=== PATIENT | male | born 1950 | race Caucasian/White ===

== ENCOUNTER → 2016-05-10 | Outpatient (CLI) | payer OTHER ==
[~2016-05-10] MED LIST: ASPI81TA28 PO; ATOR-22 PO; HYDR25TA4 PO; IBUP-1428 PO; TNR50 PO
[2016-05-10 17:31] LABS: BASO % 0.6 %; BASO ABS # 0.08 K/uL (0-0.2); COMPLETE YES; EOS % 2.1 %; HEMATOCRIT 51.3 % (42-52); IG% 0.2 %; LYMPH % 35.1 %; LYMPH ABS # 4.47 K/uL (1.2-3.4); MEAN CELL VOLUME 92.3 fL (80-100); MEAN CORPUSCULAR HGB CONC 34.7 g/dl (32-36); MEAN PLATELET VOLUME 13.5 fL (7.4-10.4); MONO % 5.8 %; NEUT % 56.2 %; PLATELET COUNT 180 K/uL (130-400); RED BLOOD COUNT 5.56 M/uL (4.7-6.1); WHITE BLOOD COUNT 12.73 K/uL (4.8-10.8)
[2016-05-10 17:57] LABS: ALT/SGPT 29 U/L (12-78); BLOOD UREA NITROGEN 14 mg/dl (7-18); BUN/CREATININE RATIO 12.9 (10-20); CALCIUM 8.9 mg/dl (8.5-10.1); CARBON DIOXIDE 25 mmol/L (21-32); CHLORIDE 108 mmol/L (98-107); CHOLESTEROL 126 mg/dl (0-200); GLUCOSE 90 mg/dl (70-99); POTASSIUM 4.4 mmol/L (3.5-5.1); SODIUM 142 mmol/L (136-145)
[2016-05-10 18:07] LABS: ALKALINE PHOSPHATASE 87 U/L (45-117); AST/SGOT 20 U/L (15-37); CHOLESTEROL/HDL RATIO 2.5; HDL CHOLESTEROL 50 mg/dl; LDL CHOLESTEROL CALCULATED 66 mg/dl; THYROID STIMULATING HORMONE 0.828 uIu/ml (0.300-4.500); TRIGLYCERIDES 49 mg/dl (0-150); VERY LOW DENSITY LIPOPROT CALC 10 mg/dl
[2016-05-11 06:21] LABS: ESTIMATED AVERAGE GLUCOSE 140 mg/dl; HA1C FLAG Normal (Normal)
== END | disposition home or self-care (01) ==
LOC: C.LABBFT 14:59
PROVIDERS: ATTEND Internal Medicine
DX: D45 Polycythemia vera (principal); E11.9 Type 2 diabetes mellitus without complications; E78.5 Hyperlipidemia, unspecified; I10 Essential (primary) hypertension

== ENCOUNTER → 2016-12-06 | Outpatient (CLI) | payer OTHER ==
[2016-12-06 12:05] LABS: BASO % 0.7 %; BASO ABS # 0.08 K/uL (0-0.2); COMPLETE YES; EOS % 2.5 %; HEMATOCRIT 48.9 % (42-52); IG% 0.3 %; LYMPH % 29.8 %; LYMPH ABS # 3.48 K/uL (1.2-3.4); MEAN CELL VOLUME 91.4 fL (80-100); MEAN CORPUSCULAR HEMOGLOBIN 33.3 pg (25-34); MEAN CORPUSCULAR HGB CONC 36.4 g/dl (32-36); MEAN PLATELET VOLUME 13.8 fL (7.4-10.4); MONO % 6.7 %; PLATELET COUNT 155 K/uL (130-400); RED BLOOD COUNT 5.35 M/uL (4.7-6.1); WHITE BLOOD COUNT 11.68 K/uL (4.8-10.8)
[2016-12-06 12:17] LABS: ALB/GLOB RATIO 0.9 (0.9-2); ALT/SGPT 39 U/L (12-78); AST/SGOT 26 U/L (15-37); BLOOD UREA NITROGEN 13 mg/dl (7-18); BUN/CREATININE RATIO 13.2 (10-20); CALCIUM 8.9 mg/dl (8.5-10.1); CARBON DIOXIDE 24 mmol/L (21-32); CHLORIDE 107 mmol/L (98-107); CHOLESTEROL 104 mg/dl (0-200); CHOLESTEROL/HDL RATIO 2.6; GLUCOSE 126 mg/dl (70-99); HDL CHOLESTEROL 40 mg/dl; LDL CHOLESTEROL CALCULATED 51 mg/dl; POTASSIUM 3.5 mmol/L (3.5-5.1); SODIUM 139 mmol/L (136-145); TRIGLYCERIDES 66 mg/dl (0-150); VERY LOW DENSITY LIPOPROT CALC 13 mg/dl
[2016-12-06 12:18] LABS: ESTIMATED AVERAGE GLUCOSE 154 mg/dl; HA1C FLAG Normal (Normal)
[2016-12-06 12:27] LABS: ALKALINE PHOSPHATASE 87 U/L (45-117); PROSTATE SPECIFIC ANTIGEN 0.491 ng/ml (0.000-4.000); THYROID STIMULATING HORMONE 0.895 uIu/ml (0.300-4.500)
[2016-12-06 12:40] LABS: RATIO 6.1 mcg/mg (0-30.0)
== END | disposition home or self-care (01) ==
LOC: C.LABBFT 09:11
PROVIDERS: ATTEND Internal Medicine
DX: Z12.5 Encounter for screening for malignant neoplasm of prostate (principal); E11.9 Type 2 diabetes mellitus without complications

== ENCOUNTER → 2016-12-26 | Day surgery (SDC) | payer OTHER ==
[2016-11-21 10:29] VITALS: Ht 177.8 cm; Wt 109.1 kg
[~2016-12-26] VITALS: Ht 177.8 cm; Wt 109.1 kg
== END | disposition home or self-care (01) ==
LOC: EDSTATUS 07:00 → C.PAT 13:43
PROVIDERS: ATTEND Ophthalmology
DX: H26.9 Unspecified cataract (principal); Z53.9 Procedure and treatment not carried out, unspecified reason

== ENCOUNTER 2017-06-23 13:50 | Emergency (ER) | payer OTHER ==
[~2017-06-23] VITALS: Ht 177.8 cm; Wt 122.9 kg
[2017-06-23 14:05] VITALS: O2SAT 96; Ht 177.8 cm; Wt 122.9 kg
--- NOTE | 2017-06-23 14:27 | EMERGENCY ROOM VISIT NOTE ---
History First contact with patient: 14:09 Chief Complaint: CHEST PAIN Stated Complaint: CHEST PAIN/ARM NUMBNESS Nursing Triage Summary: Pt reports last week numbness to left side of face, arm and leg, continues. Had chest pain last week that resolved then returned this morning approx 0730. Left sided chest pain into left arm. In the morning has dizziness/lightheadedness. Denies sob or n/v. Denies cardiac hx. History of Present Illness The patient is a 66 year old male who presents to the Emergency Room with complaints of 2 episodes of chest pain. The patient has a past medical history of HTN, HLD and pre-diabetes. He notes that 1 week ago he was sitting on the cough and fell asleep and was suddenly awoken by chest discomfort. The pain was in his left chest. It was "like someone took a bat to my chest", rated the severity of 3/10. The pain did not radiate. It last about 5 seconds then went away on its own. He notes some chronic SOB which he attributes to smoking as well as a chronic lingering cough , but he is not sure how long he has had that. In addition, he notes that since that time he has had some tingling in the left face, left arm and left leg. He does not have weakness, speech problems, swallowing difficulties. He denies gait issues. This morning, he notes the chest discomfort occured again but severity was negligible, given the second episode, he decided to come to the ED for evaluation. Review of Systems A 10 point review of systems was negative unless stated above. Past Medical/Surgical History HTN HLD Pre-diabetes Surgical: - Hx Cholecystectomy Family History No pertinent family history Social History Smoking Status: Current Every Day Smoker (1 carton per week) Smokeless Tobacco Use: Yes Alcohol Use: none Drug Use: none Marital Status: Housing Status: lives with significant other Occupation Status: employed (straight truck driver) Current/Historical Medications Scheduled Aspirin (Aspirin Ec), 81 MG PO QAM Atenolol (Atenolol), 50 MG PO QAM Atorvastatin (Lipitor), 20 MG PO QAM Hydrochlorothiazide (Hctz), 25 MG PO QAM Allergies NKDA Physical Exam Vital Signs Date Time Temp Pulse Resp B/P (MAP) Pulse Ox O2 Delivery O2 Flow Rate FiO2 06/23/17 16:03 57 20 167/85 97 06/23/17 15:51 57 20 167/85 97 Room Air 06/23/17 15:04 42 22 136/86 96 Room Air 06/23/17 14:31 51 171/97 99 Room Air 06/23/17 14:29 52 06/23/17 14:22 169/103 06/23/17 14:22 54 15 169/103 97 Room Air 06/23/17 14:20 48 19 99 Room Air 06/23/17 14:05 96 Room Air 06/23/17 14:05 58 18 182/86 96 Room Air 06/23/17 14:03 182/86 Pain Rating (0-10): 0 Physical Exam Constitutional: Vital signs as above were reviewed. Eyes: Pupils equal, round, and reactive to light. Extraocular muscles are intact. No proptosis. No photophobia. ENT: Mucous membranes are moist. Oropharynx is clear. No sinus tenderness. TMs are clear bilaterally No JVD. Cardiovascular: Heart with a regular rate and rhythm. No pedal edema appreciated. No chest wall tenderness Respiratory: Lungs clear to auscultation bilaterally. No wheezes, rales, or rhonchi appreciated. No accessory muscle use. No retractions. No increased work of breathing. GI: Abdomen soft, nontender, nondistended. Normal active bowel sounds. No abdominal hernias appreciated. No rebound. No guarding. : No CVA tenderness appreciated. Musculoskeletal: No midline cervical or vertebral tenderness. No gross deformities. No bony tenderness. No calf swelling or tenderness. Integumentary: Warm, dry, no rashes appreciated. Neurological: Patient awake, alert, and oriented x 3. Cranial nerves two through 12 grossly intact. Motor 5 out of 5 strength bilateral upper and lower extremities. Lymph: No cervical lymphadenopathy appreciated. Medical Decision & Procedures ER Provider Diagnostic Interpretation: CHEST ONE VIEW PORTABLE HISTORY: 66 years-old Male chest pain acute atypical chest pain COMPARISON: None available TECHNIQUE: Portable AP view of the chest FINDINGS: The cardiomediastinal and hilar silhouettes are within normal limits. There is no pneumothorax, pleural effusion, focal airspace consolidation or overt pulmonary edema. The bones of the chest appear grossly intact. Degenerative changes are noted within the shoulders and spine. IMPRESSION: No acute process. The above report was generated using voice recognition software. It may contain grammatical, syntax or spelling errors. Electronically signed by: Todd Urban M.D. 06/23/2017 2:40 PM Dictated Date/Time: 06/23/2017 2:39 PM Laboratory Results 06/23/17 14:15 Red Blood Count 5.43, Mean Corpuscular Volume 91.3, Mean Corpuscular Hemoglobin 33.0, Mean Corpuscular Hemoglobin Concent 36.1, Mean Platelet Volume 13.0, Neutrophils (%) (Auto) 56.8, Lymphocytes (%) (Auto) 32.7, Monocytes (%) (Auto) 7.2, Eosinophils (%) (Auto) 2.3, Basophils (%) (Auto) 0.7, Neutrophils # (Auto) 6.43, Lymphocytes # (Auto) 3.70, Monocytes # (Auto) 0.82, Eosinophils # (Auto) 0.26, Basophils # (Auto) 0.08 06/23/17 14:15 Test 06/23/17 14:15 White Blood Count 11.32 K/uL (4.8-10.8) Red Blood Count 5.43 M/uL (4.7-6.1) Hemoglobin 17.9 g/dL (14.0-18.0) Hematocrit 49.6 % (42-52) Mean Corpuscular Volume 91.3 fL (80-100) Mean Corpuscular Hemoglobin 33.0 pg (25-34) Mean Corpuscular Hemoglobin Concent 36.1 g/dl (32-36) Platelet Count 151 K/uL (130-400) Mean Platelet Volume 13.0 fL (7.4-10.4) Neutrophils (%) (Auto) 56.8 % Lymphocytes (%) (Auto) 32.7 % Monocytes (%) (Auto) 7.2 % Eosinophils (%) (Auto) 2.3 % Basophils (%) (Auto) 0.7 % Neutrophils # (Auto) 6.43 K/uL (1.4-6.5) Lymphocytes # (Auto) 3.70 K/uL (1.2-3.4) Monocytes # (Auto) 0.82 K/uL (0.11-0.59) Eosinophils # (Auto) 0.26 K/uL (0-0.5) Basophils # (Auto) 0.08 K/uL (0-0.2) RDW Standard Deviation 45.2 fL (36.4-46.3) RDW Coefficient of Variation 13.7 % (11.5-14.5) Immature Granulocyte % (Auto) 0.3 % Immature Granulocyte # (Auto) 0.03 K/uL (0.00-0.02) Anion Gap 7.0 mmol/L (3-11) Est Creatinine Clear Calc Drug Dose 93.1 ml/min Estimated GFR () 86.9 Estimated GFR (Non- 75.0 BUN/Creatinine Ratio 12.3 (10-20) Calcium Level 9.1 mg/dl (8.5-10.1) Troponin I < 0.015 ng/ml (0-0.045) ECG Per My Interpretation Indication: chest pain Rate (beats per minute): 47 Rhythm: normal sinus Change: No acute ST or T wave changes ED Course 14:15 - Patient seen and assessed 14:30 - Labs: CBC, BMP, Troponin, EKG, CXR EKG reviewed: NSR rate [address] or T wave changes 15:45 - Patient feeling well Discussed discharge with PCP follow-up; patient agreeable 16:00 - Patient discharged in stable condition Medical Decision Patient presents with 2 brief episode of chest pain. Differential includes, ACS, Angina, Pneumonia, Pneumothorax, PE, Costochondritis , GERD/Esophagitis. Patients presentation was highly atypical of cardiac chest pain, but given risk factors, work-up was initiated. The EKG was normal, and he had a negative troponin. From this standpoint, ACS was highly unlikely. Other causes was ruled out on CXR. The patient incidentally notes tingling on the entire left side of the body. This is unlikely CVA given that symptoms are ipsilateral between head and arms/ legs. As such, he did not require work-up for CVA. Given negative work-up decision was made to discharge back to the care of his PCP. He was agreeable to this. He has follow-up scheduled tomorrow. He was discharged home in stable conditions. Head Trauma GCS Score: 15 Medication Reconcilliation Current Medication List: was personally reviewed by me Blood Pressure Screening Patient's blood pressure: Normal blood pressure Blood pressure disposition: Did not require urgent referral Impression Primary Impression: Non-cardiac chest pain Departure Information Dispostion Home / Self-Care Condition GOOD Referrals Berna, Jb,M.D. (PCP) Patient Instructions My [facility] Additional Instructions You came to the ED for chest pain. The quality of your pain is not typical for heart attack however. Your heart enzyme was normal on labs. Your EKG (heart tracing was normal). Your CXR was normal. You can be discharged home. Please try taking Tylenol if the pain recurs. Please stay hydrated. If your symptoms fail to improve, acutely worsen, please seek medical attention immediately by either calling your primary care provider or going to your nearest emergency department. Otherwise, please see your primary care provider within 1 week to ensure that your symptoms continue to improve. It was a pleasure to be involved in your care and we wish you all the best.
--- NOTE | 2017-06-23 14:41 | DIAGNOSTIC IMAGING REPORT ---
CHEST ONE VIEW PORTABLE HISTORY: 66 years-old Male chest pain acute atypical chest pain COMPARISON: None available TECHNIQUE: Portable AP view of the chest FINDINGS: The cardiomediastinal and hilar silhouettes are within normal limits. There is no pneumothorax, pleural effusion, focal airspace consolidation or overt pulmonary edema. The bones of the chest appear grossly intact. Degenerative changes are noted within the shoulders and spine. IMPRESSION: No acute process. The above report was generated using voice recognition software. It may contain grammatical, syntax or spelling errors. Electronically signed by: Todd Urban M.D. 06/23/2017 2:40 PM Dictated Date/Time: 06/23/2017 2:39 PM
[2017-06-23 14:45] LABS: MEAN CORPUSCULAR HGB CONC 36.1 g/dl (32-36)
[2017-06-23 14:56] LABS: HEMATOCRIT 49.6 % (42-52); HEMOGLOBIN 17.9 g/dL (14.0-18.0); MEAN CELL VOLUME 91.3 fL (80-100); RED CELL DISTRIBUTION WIDTH CV 13.7 % (11.5-14.5); RED CELL DISTRIBUTION WIDTH SD 45.2 fL (36.4-46.3); WHITE BLOOD COUNT 11.32 K/uL (4.8-10.8)
[2017-06-23 15:13] LABS: BLOOD UREA NITROGEN 13 mg/dl (7-18); CALCIUM 9.1 mg/dl (8.5-10.1); CARBON DIOXIDE 24 mmol/L (21-32); CREATININE 1.04 mg/dl (0.60-1.40); GLUCOSE 125 mg/dl (70-99); POTASSIUM 3.7 mmol/L (3.5-5.1); SODIUM 138 mmol/L (136-145)
[2017-06-23 15:14] LABS: PLATELET COUNT 151 K/uL (130-400)
[2017-06-23 15:18] LABS: BASO % 0.7 %; BASO ABS # 0.08 K/uL (0-0.2); EOS % 2.3 %; EOS ABS # 0.26 K/uL (0-0.5); IG# 0.03 K/uL (0.00-0.02); LYMPH % 32.7 %; MONO % 7.2 %; MONO ABS # 0.82 K/uL (0.11-0.59); NEUT % 56.8 %; NEUT ABS # 6.43 K/uL (1.4-6.5)
--- NOTE | 2017-06-23 15:32 | EMERGENCY ROOM VISIT NOTE ---
ED Visit Note First contact with patient: 14:09 Resident Physician Supervision Note: I was present with Dr. Cabello during the history and exam. I discussed the case with the resident and agree with the findings and plan as documented in the note. Documented By: Leonid Wilhelm
[2017-06-23 16:03] VITALS: BP 167/85; PULSE 57; O2SAT 97
== END 2017-06-23 16:04 | disposition home or self-care (01) ==
LOC: C.EDB 13:53 → C.EDC 16:04
DX: R07.89 Other chest pain (principal); I10 Essential (primary) hypertension; E78.5 Hyperlipidemia, unspecified; R73.03 Prediabetes; F17.210 Nicotine dependence, cigarettes, uncomplicated; Z79.82 Long term (current) use of aspirin; Z79.899 Other long term (current) drug therapy

== ENCOUNTER → 2017-06-24 | Outpatient (CLI) | payer OTHER ==
[~2017-06-24] MED LIST changes: -IBUP-1428 PO
[2017-06-24 12:55] LABS: HEMOGLOBIN A1C 6.9 % (4.5-5.6)
== END | disposition home or self-care (01) ==
LOC: C.LABBFT 09:05
PROVIDERS: ATTEND Physician Assistant Medical
DX: E11.9 Type 2 diabetes mellitus without complications (principal); E78.5 Hyperlipidemia, unspecified

== ENCOUNTER 2019-04-20 09:12 | Observation (INO) ==
[2019-04-20] MEDS ORDERED: MAGNESIUM SULFATE / D5W 1 GM/100 ML BAG IV ONE (09:25)
[2019-04-20] MEDS ORDERED: OPTIRAY 320 125ml IV PRN (09:27)
[2019-04-20] MEDS ORDERED: SODIUM CHLORIDE 0.9% 1000ML 1,000 ML IV SCH (09:30)
[2019-04-20 09:45] LABS: Basophils # (auto) 0.09 K/uL (0-0.2); Basophils % (auto) 0.9 %; Eosinophils # (auto) 0.39 K/uL (0-0.5); Hematocrit (blood only) 44.2 % (42-52); Hemoglobin 15.5 g/dL (14.0-18.0); Immature Granulocytes # (auto) 0.03 K/uL (0.00-0.02); Immature Granulocytes % (auto) 0.3 %; Lymphocytes # (auto) 2.46 K/uL (1.2-3.4); Lymphocytes % (auto) 25.5 %; Mean Corpuscular Hemoglobin 32.6 pg (25-34); Mean Corpuscular Hgb Conc 35.1 g/dL (32-36); Mean Corpuscular Volume 93.1 fL (80-100); Mean Platelet Volume 13.1 fL (7.4-10.4); Monocytes # (auto) 0.78 K/uL (0.11-0.59); Monocytes % (auto) 8.1 %; Neutrophils # (auto) 5.89 K/uL (1.4-6.5); Neutrophils % (auto) 61.2 %; Platelet Count 186 K/uL (130-400); RDW Coefficient of Variation 13.4 % (11.5-14.5); RDW Standard Deviation 45.6 fL (36.4-46.3); Red Blood Count 4.75 M/uL (4.7-6.1); White Blood Count 9.64 K/uL (4.8-10.8)
--- NOTE | 2019-04-20 09:50 | CT Scan Report ---
CT angio head w con CLINICAL HISTORY: stroke TECHNIQUE: CT angiography of the head was performed in a dynamic helical fashion during intravenous a dministration of 120 cc of Optiray 320. MIP imaging was performed. A dose lowering technique was util ized adhering to the principles of ALARA. CT DOSE: 1255.34 mGy.cm COMPARISON STUDY: No previous studies for comparison. FINDINGS: There are no lesion suspicious for aneurysm. There are no major intracranial branch occlusi ons. The dural venous sinuses appear patent. IMPRESSION: Unremarkable CT angiography of the brain. ACT 112: Negative or not required by law. Electronically signed by: Christopher Sears M.D. 04/20/2019 9:49 AM
--- NOTE | 2019-04-20 09:50 | CT Scan Report ---
CT OF THE HEAD WITHOUT CONTRAST CLINICAL HISTORY: Stroke evaluation COMPARISON STUDY: Head CT April 12, 2019. MRI of the brain April 12, 2019. TECHNIQUE: Helical axial images of the head were obtained without IV contrast. Automated exposure con trol was utilized for the study. A dose lowering technique was utilized adhering to the principles o f ALARA. FINDINGS: No acute intracranial hemorrhage, midline shift or mass effect is present. The ventricular system is unremarkable. The basilar cisterns are patent. No extra-axial collections are present. Ther e are no findings to suggest acute dural sinus thrombosis or acute territorial infarct. No significan t calvarial abnormalities are present. Visualized portions of the sinuses and mastoid air cells are c lear. White matter hypodensities are unchanged and suggest small vessel disease. IMPRESSION: No acute intracranial findings. ACT 112: Negative or not required by law. Electronically signed by: Eleuterio Finney M.D. 04/20/2019 9:49 AM
[2019-04-20] MEDS ORDERED: METOPROLOL TARTRATE 1 MG/ML VIAL IV PRN (09:56)
--- NOTE | 2019-04-20 09:59 | XRay Report ---
XR chest 1V portable CLINICAL HISTORY: stroke alert COMPARISON STUDY: Chest radiograph June 24, 2007. FINDINGS: Lung volumes are normal. Lungs are clear. There is no pneumothorax or pleural effusion. Car diac size is normal. Mediastinal contours are normal. There is no evidence for pulmonary edema. Right neck surgical clips are incidentally noted. IMPRESSION: No acute cardiopulmonary findings. ACT 112: Negative or not required by law. Electronically signed by: Eleuterio Finney M.D. 04/20/2019 9:57 AM
[2019-04-20 10:00] LABS: Alanine Aminotransferase 42 U/L (12-78); Albumin Level 3.1 gm/dl (3.4-5.0); Aspartate Aminotransferase 25 U/L (15-37); BUN Creatinine Ratio 12.7 (10-20); Blood Urea Nitrogen 12 mg/dl (7-18); Carbon Dioxide 26 mmol/L (21-32); Chloride 111 mmol/L (98-107); Est GFR (African American) 95.6; Est GFR (Non-African American) 82.5; Glucose 128 mg/dl (70-99); Magnesium 2.1 mg/dl (1.8-2.4); Potassium 4.1 mmol/L (3.5-5.1); Sodium 138 mmol/L (136-145)
--- NOTE | 2019-04-20 10:00 | CT Scan Report ---
NECK CTA HISTORY: Pt c/o facial droop TECHNIQUE: Multiaxial CT images of the neck were performed following the intravenous administration o f contrast to evaluate the major cervical vessels. Maximum intensity projection images were also obta ined. All measurements were calculated based on NASCET criteria. A dose lowering technique was utili zed adhering to the principles of ALARA. COMPARISON STUDY: Neck MRA 11/23/1937 18 and neck CTA 04/12/2019. FINDINGS: There is persistent mediastinal lymphadenopathy. Dominant subcarinal lymph node measures 3. 6 x 1.6 cm. There is also mild right hilar lymphadenopathy. Small amount of soft tissue gas and mild edema in the right sternocleidomastoid muscle and mild edema within the right carotid sheath consiste nt with interval carotid endarterectomy. No significant stenosis or occlusion within the right common or internal carotid artery status post endarterectomy. Small linear filling defect at the carotid bi furcation suggestive of an incomplete intimal flap in the setting of a focal dissection. However, bot h lumens opacify. This could also be due to postoperative change. The aortic arch and proximal great vessels are widely patent. No significant stenosis within the left common carotid artery. Moderate na rrowing at the takeoff of the left vertebral artery. Otherwise, the remaining bilateral vertebral art eries are widely patent. Focal short segment of 60-70% stenosis within the proximal left internal car otid artery, unchanged. IMPRESSION: 1. Interval right-sided carotid endarterectomy with no significant stenosis or occlusion within the r ight carotid arteries. 2. There is a small incomplete focal intimal flap at the right carotid bifurcation suggestive of a fo maxine dissection. However, both lumens opacify. This could also be due to postoperative change. 3. No significant change in the 60-70% focal stenosis within the proximal left internal carotid arter y. 4. Persistent mediastinal and right hilar lymphadenopathy. This raises the possibility of a lymphopro liferative disorder or metastatic disease. ACT 112: Negative or not required by law. Electronically signed by: Diaz Leal M.D. 04/20/2019 9:59 AM
[2019-04-20 10:05] LABS: Albumin Globulin Ratio 0.8 (0.9-2); Alkaline Phosphatase 97 U/L (45-117); Bilirubin,Total 0.4 mg/dl (0.2-1); Creatine Kinase 92 U/L (39-308); Creatine Kinase MB 1.4 ng/ml (0.5-3.6); Total Protein 7.1 gm/dl (6.4-8.2); Troponin I < 0.015 ng/ml (0-0.045)
[2019-04-20] MEDS ORDERED: HydrALAZINE HCL 20 MG/ML VIAL IV STA (10:10)
[2019-04-20 10:26] LABS: Appearance Urine Clear (Clear); Bilirubin Urine Negative (Negative); Blood Urine Negative (Negative); Color Urine Yellow; Glucose Urine UA Negative (Negative); Ketones Urine Negative (Negative); Leukocyte Esterase Urine Negative (Negative); Nitrite Urine Negative (Negative); Protein Urine Negative (Negative); Specific Gravity Urine 1.014 (1.000-1.030); Urobilinogen Urine Negative (Negative); pH Urine 7.5 (4.5-7.5)
[2019-04-20 10:30] LABS: Partial Thromboplastin Time 27.9 Seconds (21.0-31.0); Prothrombin Time 10.3 Seconds (9.0-12.0)
[2019-04-20 11:03] LABS: iSTAT Creatinine 0.9 mg/dl (0.6-1.3); iSTAT Ionized Calcium 1.22 mmol/l (1.12-1.32); iSTAT Potassium 4.1 mEq/L (3.3-5.0)
--- NOTE | 2019-04-20 11:22 | History & Physical Report ---
Date of Service April 20, 2019 Assessment & Plan (1) Transient ischemic attack: Admit to PCU on telemetry for observation. Vital signs every 4 hours. Started stroke pathway without TPA TPA not indicated at this time since no acute infarction present. Patient's initial strokelike symptoms improved and resolved. Monitor electrolytes and replenish Neurology consult TTE pending Continue atorvastatin 40 mg nightly Continue clopidogrel 75 mg daily Monitor blood pressure closely. Consider consulting cardiology for bradycardia if does not resolved after discontinuing atenolol. Hydralazine 10 mg p.o. 4 times daily as needed for elevated blood pressure systolic above 160 and diastolic above 90. Brain MRI pending CTA head and neck no visible acute stroke DVT prophylaxis Lovenox 40 mg subcu every 24 Full code Present on Admission?: Yes (2) Hypertensive urgency: As discussed above, continue telemetry and monitoring blood pressures and symptoms including stroke pathway without TPA. Present on Admission?: Yes (3) Hypertension: Continue home medicine aspirin 81 mg p.o. every morning, Midodrin 2.5 mg p.o. twice daily Monitor blood pressure every 4 hours Use hydralazine 10 mg p.o. as needed for elevated blood pressure systolic above 160 and diastolic above 90. Present on Admission?: Yes (4) Diabetes mellitus type 2, uncontrolled: A1c pending. Patient controls his diabetes with diet. Continue monitoring with Accu-Cheks before meals and at bedtime Present on Admission?: Yes (5) Hyperlipidemia: Lipid panel pending. Continue atorvastatin 40 mg p.o. nightly Present on Admission?: Yes (6) Stenosis of left internal carotid artery: Per CTA of the neck there is no significant change in the 60 to 70% focal stenosis within the proximal left internal carotid artery. Continue medical management with atorvastatin 40 mg p.o. nightly and aspirin 81 mg p.o. daily and clopidogrel 75 mg p.o. every morning. Present on Admission?: Yes (7) Occlusion of right internal carotid artery: Patient is s/p endarterectomy of the right internal carotid artery for symptomatic right ICA stenosis and probably small subcortical non-imaginable stroke, with residual left-sided hypoesthesia. Continue medical management as the above. MRI brain pending Present on Admission?: Yes History of Present Illness Chief Complaint: Hypertensive urgency Primary Care Provider: Jb Coronel MD Patient is a 68 years old male with past medical history of hypertension, diabetes mellitus type 2 uncontrolled, hyperlipidemia, stenosis of the right internal carotid artery s/p endarterectomy, stenosis of the left internal carotid artery who presented to the emergency room with complaint of facial droop and feeling dizzy since this morning. Per patient and his his appearance improved after arrival to the emergency room. Just last week patient was seen at [facility] and had endarterectomy of symptomatic right ICA stenosis with probably small subcortical non-imaginable stroke with right-sided residual hypoesthesia. Patient reports that on the discharge from [facility] he was told to discontinue atenolol 50 mg daily and hydrochlorothiazide 25 mg daily. He was also advised to check his blood pressure and if his blood pressure is high to take just half of atenolol 50 mg as needed. This morning patient took atenolol 25 mg without previously checking a blood pressure and on arrival to the emergency room his heart rate was in the range of 40-50 but blood pressure continued to be high systolic 150- 212 and diastolic 80-110. Patient received hydralazine in the ER 10 mg IV x1 metoprolol 5 mg IV x1 and magnesium 1 g IV x1. Patient denies fever, chills, headache, chest pain, shortness of breath, abdominal pain, frequency, urgency, syncope or near syncope. Facial droop improved and it was not present at the time of the clinical examination. Labs are reviewed: WBC is 9.64, hemoglobin 15.5, hematocrit 44.2, platelets 186, PT 10.3, INR 1, APTT 27.9. Sodium 138, potassium 4.1, chloride 111, anion gap 1, BUN 12, creatinine 0.95, GFR 82.5, magnesium 2.1, glucose 128, AST 25, ALT 42, troponin 0.015, TSH pending, BNP pending, A1c pending. Urine all negative. Decision was made to admit patient to PCU on telemetry for apparently strokelike symptoms, hypertensive urgency, bradycardia and further treatment and management. Allergies Allergy/AdvReac Type Severity Reaction Status Date / Time No Known Allergies Allergy Unverified 04/20/19 10:15 Home Medications Home Medications Medication Instructions Recorded Confirmed Type fluticasone 100 mcg-salmeterol 50 1 puffs INHALATION BID #1 ea 01/24/19 04/20/19 History mcg/dose blistr powdr for inhalation blood sugar diagnostic #300 ea 04/19/19 Rx aspirin 81 mg PO QAM 04/20/19 04/20/19 History atorvastatin 40 mg PO HS 04/20/19 04/20/19 History clopidogrel 75 mg PO QAM 04/20/19 04/20/19 History folic acid 2.5 mg PO QAM 04/20/19 04/20/19 History midodrine 2.5 mg PO BID 04/20/19 04/20/19 History Past Med/Surg History Medical History Diabetes mellitus type 2, uncontrolled (Chronic) Hyperlipidemia (Chronic) Hypertension (Chronic) Family History Father Myocardial infarction Social History Preferred Language: Slovak marital status: Current Living Situation: Spouse current occupational status: employed Feels Safe at Home: Yes Smoking Status: Former smoker Tobacco Type: cigarettes ; Age Started Using Tobacco: 16 ; Cigarettes Per Day: 1PPD ; Hx Alcohol Use: No Hx Substance Use: No Dental Care, Regularly: Yes Physical Activity Frequency: Daily Seatbelt Use: always Sunscreen Use: No Review of Systems Review of Systems: All systems reviewed & are unremarkable except as noted in HPI & below Physical Exam Constitutional: WD/WN, vitals as above well developed and + obese Eyes: PERRL, conjunctivae normal, anicteric sclerae ENMT: external ear and nose normal, oropharynx normal Neck: trachea midline, no thyromegaly Respiratory: normal respiratory effort, lungs clear to auscultation Cardiovascular: Rate/Rhythm: + bradycardic Heart Sounds: normal S1 and normal S2 Vessels: dorsalis pedis pulses present Gastrointestinal (Abdomen): normal bowel sounds, soft, nontender, no hepatosplenomegaly Musculoskeletal: no cyanosis or clubbing, extremities motor strength 5/5 Skin: no rashes, warm and dry Neurologic: patellar DTR's 2+ bilat, sensation intact Psychiatric: A+Ox3, euthymic affect Lymphatic: no cervical or axillary lymphadenopathy Results & Data Vital Signs (Past 12 Hours) Vital Signs Temp Pulse Pulse Resp BP BP Pulse Ox 04/20/19 10:32 48 L 20 151/80 H 97 04/20/19 10:29 52 L 18 180/82 H 97 04/20/19 10:21 45 L 12 172/88 H 97 04/20/19 10:10 42 L 16 169/90 H 95 04/20/19 10:05 42 L 14 212/197 H 95 04/20/19 09:44 52 L 52 L 12 187/85 H 96 04/20/19 09:17 36.6 C 48 L 18 171/107 H 95 Code Status & VTE Plan Code Status Full code VTE Prophylaxis Plan VTE Prophylaxis will be ordered: Yes PG Care Time/CCT Total # of Minutes Spent Total Time Spent with Patient: Total time spent is greater than 50% in cook box filler rdination of care (as documented) at patient's floor/unit and/or counseling patient:
--- NOTE | 2019-04-20 11:23 | Magnetic Resonance Report ---
MRI OF THE BRAIN WITHOUT CONTRAST CLINICAL HISTORY: Left-sided numbness. Evaluate for cerebrovascular accident. COMPARISON STUDY: MRI of the brain April 12, 2019. Head CT and CTA performed earlier today. TECHNIQUE: Utilizing a 1.5 Ginger magnet and dedicated coil, multiplanar, multiecho imaging of the bra in was performed without IV contrast. FINDINGS: There are no foci of restricted diffusion to suggest acute infarct. No acute intracranial h emorrhage, midline shift or mass effect is present. Ventricular system is stable. Basilar cisterns ar e patent. There are no extra axial collections. No intracranial masses are identified on this unenhan shannan exam. Numerous white matter T2 hyperintense foci are similar to MRI April 12, 2019. The appear ance of the brain is unchanged. 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 Calvarial signal is normal. IMPRESSION: 1. No acute intracranial findings. 2. No change in appearance of the brain since exam April 12, 2019. ACT 112: Negative or not required by law. Electronically signed by: Eleuterio Finney M.D. 04/20/2019 11:22 AM
[2019-04-20] MEDS ORDERED: PHARMACIST DISCHARGE MED REC CONSULT PRN (13:03)
[2019-04-20] MEDS ORDERED: ACETAMINOPHEN 325 MG TAB PO PRN (13:03)
[2019-04-20] MEDS ORDERED: MAGNESIUM HYDROXIDE SUSP 30 ML UDC PO PRN (13:03)
[2019-04-20] MEDS ORDERED: POLYETHYLENE (MIRALAX) 17 GM PACK PO PRN (13:03)
[2019-04-20] MEDS ORDERED: ALUMINUM/MAGNESIUM SUSP 30 ML UDC PO PRN (13:03)
[2019-04-20] MEDS ORDERED: HydrALAZINE 10 MG TAB PO PRN (13:03)
[2019-04-20 13:12] LABS: Partial Thromboplastin Time 27.8 Seconds (21.0-31.0); Prothrombin Time 10.3 Seconds (9.0-12.0)
[2019-04-20] MEDS ORDERED: ENOXAPARIN INJ 40 MG/0.4 ML SYR SQ SCH (14:00)
--- NOTE | 2019-04-20 14:04 | Electrocardiogram Report ---
Test Reason : Blood Pressure : / mmHG Vent. Rate : 046 BPM Atrial Rate : 046 BPM P-R Int : 190 ms QRS Dur : 094 ms QT Int : 478 ms P-R-T Axes : 028 058 062 degrees QTc Int : 418 ms Sinus bradycardia Otherwise normal ECG When compared with ECG of 20-APR-2019 09:41, Premature atrial complexes are no longer Present Confirmed by Leonid Yusuf ([id number]) on 04/20/2019 2:04:20 PM Referred By: REFERRED SELF Confirmed By:Leonid Yusuf
[2019-04-20 14:09] LABS: Estimated Average Glucose 148 mg/dl; Hemoglobin A1C 6.8 % (4.5-5.6)
[2019-04-20] MEDS ORDERED: MIDODRINE HCL 2.5 MG TAB PO SCH (15:00)
--- NOTE | 2019-04-20 15:08 | Neurology Consultation ---
Date of Consultation April 20, 2019 Assessment & Plan (1) Hypertensive urgency: (2) Stroke-like symptoms: Ceasar Cooper is a 68 yo man w/ PMH hypertension, hyperlipidemia, diabetes, tobacco abuse, recent TIA and recent right carotid endarterectomy at [facility] on 04/15/2019 who presents to [facility] with transient facial droop and dizziness in the setting of hypertension and bradycardia. # Dizziness: in the setting of significant bradycardia/HTN -Bradycardia can be a normal postoperative finding in CEA patients due to location of the vagus nerve and baroreceptors in the carotid bulb -Continue to monitor and if he is symptomatic or heart rate is less than 40, would consider treating with atropine or glycopyrrolate. If he is unresponsive to these measures, may need to get cardiology involved for external pacing until he recovers. He does report that this is a long-standing issue for him, so would not recommend restarting home atenolol and instead consider alternative BP medication. -Symptomatic hypotension as well as hypertension can also be seen in the immedia te postoperative period for CEA. For hypotension, recommend treating with IV fluid boluses prn but ensure that he maintains his blood pressure cap as below. For hypertensive episodes, would consider a Cleviprex drip for rapid on-off ability. Would not recommend restarting midodrine at this time. - These symptoms usually resolve within 1 week of CEA so anticipate that BP/HR should be normalizing to his new level in the next 1-2 days -Blood pressure CAP 140/90 to prevent hyperperfusion and the risk of having postoperative ischemic or hemorrhagic strokes from reperfusion injury -Low threshold to repeat CT head without contrast if any new neurological symptoms - Discussed with patient the need to monitor BP and HR at home. 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 Thank you for this interesting consult. Please call or text with questions. (3) Stenosis of left internal carotid artery: (4) History of right-sided carotid endarterectomy: History of Present Illness Attending Physician: Hiwot Bauer MD History of Present Illness Ceasar Cooper is a 68 yo man w/ PMH hypertension, hyperlipidemia, diabetes, tobacco abuse, recent TIA and recent right carotid endarterectomy at [facility] [place] on 04/15/2019 who presents to [facility] with transient facial droop and dizziness in the setting of hypertension and bradycardia. He initially presented to [facility] on 04/12/2019 after transient left-sided weakness. At that time MRI brain did not show any acute infarct it was notable just for small vessel ischemic disease and mild generalized atrophy. MRA of the head and neck was performed and concerning for moderate stenosis of the left ICA and occlusion versus high-grade stenosis of the right ICA. A CTA showed that the right ICA was approximately 95% occluded with a positive string sign. He was given aspirin 324 and transferred to [facility] for definitive vascular treatment. Carotid Doppler performed at [facility] showed 70 to 79% stenosis of the right ICA and 60-69% stenosis in the left ICA with plaque in bilateral proximal ICAs noted. Echocardiogram showed EF of 65% with normal LV function and no LVH, mild sclerotic aortic valve without significant stenosis or regurg, no valvular vegetations or intracardiac thrombus. He underwent right CEA on April 15, 2019. He was discharged on aspirin 81 mg daily, Plavix 75 mg daily, atorvastatin 20 mg daily, folic acid and midodrine 2.5 mg twice daily. His home blood pressure medication was held for some reason. Lab work during the hospitalization was notable for A1c 7.1 and LDL 83 with normal homocysteine level, low Plavix response assay activity and normal aspirin function. He represented to [facility] on 04/20/2019 after having onset of facial droop and dizziness. He was noted to have systolics in the 150s to 210s and diastolics in the 80-110s in the emergency department, with heart rate in the 40s to 50s. He was given hydralazine, metoprolol and magnesium for this. Clinical symptoms resolved by the time he was seen by the admitting primary team. Of note, he did report having residual left-sided numbness sensation since he was admitted to [facility] last week, but reported on examination today that this has completely resolved. He denied having any facial droop at presentation. He does note that he has had longstanding bradycardia in the 40-50s without symptoms in the past. He denied any other complaints at this time. Allergies Allergy/AdvReac Type Severity Reaction Status Date / Time No Known Allergies Allergy Unverified 04/20/19 10:15 Home Medications Home Medications Medication Instructions Recorded Confirmed Type fluticasone 100 mcg-salmeterol 50 1 puffs INHALATION BID #1 ea 01/24/19 04/20/19 History mcg/dose blistr powdr for inhalation blood sugar diagnostic #300 ea 04/19/19 Rx aspirin 81 mg PO QAM 04/20/19 04/20/19 History atorvastatin 40 mg PO HS 04/20/19 04/20/19 History clopidogrel 75 mg PO QAM 04/20/19 04/20/19 History folic acid 2.5 mg PO QAM 04/20/19 04/20/19 History midodrine 2.5 mg PO BID 04/20/19 04/20/19 History Patient History Medical History Diabetes mellitus type 2, uncontrolled (Chronic) Hyperlipidemia (Chronic) Hypertension (Chronic) Family History Father Myocardial infarction Social History Preferred Language: Ch[place] marital status: Current Living Situation: Spouse current occupational status: employed Feels Safe at Home: Yes Smoking Status: Former smoker Tobacco Type: cigarettes ; Age Started Using Tobacco: 16 ; Cigarettes Per Day: 1PPD ; Hx Alcohol Use: No Hx Substance Use: No Dental Care, Regularly: Yes Physical Activity Frequency: Daily Seatbelt Use: always Sunscreen Use: No Review of Systems Review of Systems: 14 point review of systems completed and negative except as in HPI. Physical Exam Physical Exam: General Exam: GEN: NAD, sitting down in examination bed. CV: RRR on monitor, no significant edema. PULM: Nonlabored respirations on room air. Neuro Exam: MS: Awake and Alert. Oriented to person, place, and date. Speech fluent and appropriate without dysarthria or paraphasic errors. Language intact including naming, comprehension, repetition. Cognition and memory grossly intact. Attent ion intact. No neglect. CN: Visual lujan full, + blink to threat bilaterally. No extinction to double simultaneous stimuli. Normal fundoscopic exam. PERRLA OU. EOMI without nystagmus. Facial sensation intact to LT. Facial muscles full and symmetric. Hearing intact to finger rub bilaterally. Uvula midline with symmetric palatal elevation. SCMs and shoulder shrug normal. Tongue midline. MOTOR: Normal bulk and tone. No pronator drift. BUE strength 5/5 at deltoids, biceps, triceps, wrist flexors and extensors, and finger flexors bilaterally. BLE strength 5/5 at iliopsoas, hamstrings, quadriceps, tibialis anterior, and gastrocnemius bilaterally. REFLEXES: 1+ at biceps, triceps, brachioradialis, 2+ patella, and trace Achilles bilaterally. Toes mute bilaterally. SENSORY: Intact to LT throughout, no extinction to double simultaneous stimuli. Vibration and temperature intact throughout. COORDINATION: No dysmetria or ataxia on [id number] bilaterally. Normal Ke[place] bilaterally. GAIT: Deferred due to physical status. NIH STROKE SCALE 1A. Level of Consciousness (0-3) = 0 1B. LOC Questions (0-2) = 0 1C. LOC Commands (0-2) = 0 2. Best Horizontal Gaze (0-2) = 0 3. Visual Lujan (0-3) = 0 4. Facial Palsy (0-3) = 0 5. Motor Arm Right (0-4) = 0 Left (0-4) = 0 6. Motor Leg Right (0-4) = 0 Left (0-4) = 0 7. Limb Ataxia (0-2) = 0 8. Sensory (0-2) = 0 9. Best Language (0-3) = 0 10. Dysarthria (0-2) = 0 11. Extinction and Inattention (0-2) = 0 NIHSS TOTAL = 0 Results & Data Vital Signs (Past 12 Hours) Vital Signs Temp Pulse Pulse Resp BP BP Pulse Ox 04/20/19 13:00 36.5 C 61 20 153/81 H 98 04/20/19 11:50 48 L 18 153/79 H 98 04/20/19 10:38 44 L 18 158/88 H 98 04/20/19 10:32 48 L 20 151/80 H 97 04/20/19 10:29 52 L 18 180/82 H 97 04/20/19 10:21 45 L 12 172/88 H 97 04/20/19 10:10 42 L 16 169/90 H 95 04/20/19 10:05 42 L 14 212/197 H 95 04/20/19 09:44 52 L 52 L 12 187/85 H 96 04/20/19 09:17 36.6 C 48 L 18 171/107 H 95 PG Care Time/CCT Total # of Minutes Spent Total Time Spent with Patient: Total time spent is greater than 50% in coordination of care (as documented) at patient's floor/unit and/or counseling patient:
--- NOTE | 2019-04-20 15:11 | Emergency Department Note ---
Entered by Lowell Dean acting as a scribe for Boone Owusu MD History of Present Illness General Chief complaint: Neuro Symptoms/Deficit Stated complaint: NUMBNESS ON L SIDE Time Seen by Provider: 04/20/19 09:22 Source: patient History of Present Illness Provider complaint: Stroke like symptoms Onset (ago): hour(s) (This morning) Location: upper extremity, lower extremity and left Pain Consistency: + constant Quality: + other (Numbness) Relieved By: + none Associated symptoms: + confusion and + weakness The patient is a 68 year old male who presents to the Emergency Room with complaints of constant neurological symptoms that started this morning. The history was given by the patient's due to the patient being at CT scan. The states that the patient was discharged yesterday from [place] 2 days ago where he was hospitalized for right ICA stenosis. Per the patient's discharge papers, the patient had a left sided facial droop at discharge, however the notes she noticed it more today. She adds that the patient started having left sided numbness in his upper and lower extremity this morning. The also noticed the patient was slightly confused this morning and he kept telling her that he "did not feel right". The also mentioned that the patient took his blood pressure at home and it was about 160 systolic. Home Medications Home Medications Medication Instructions Recorded Confirmed Type fluticasone 100 mcg-salmeterol 50 1 puffs INHALATION BID #1 ea 01/24/19 04/20/19 History mcg/dose blistr powdr for inhalation blood sugar diagnostic #300 ea 04/19/19 Rx aspirin 81 mg PO QAM 04/20/19 04/20/19 History atorvastatin 40 mg PO HS 04/20/19 04/20/19 History clopidogrel 75 mg PO QAM 04/20/19 04/20/19 History folic acid 2.5 mg PO QAM 04/20/19 04/20/19 History nicotine [Nicoderm CQ] 1 patch TD DAILY #14 ea 04/21/19 Rx Allergies Allergy/AdvReac Type Severity Reaction Status Date / Time No Known Allergies Allergy Unverified 04/20/19 10:15 Past Med/Surg History Medical History Diabetes mellitus type 2, uncontrolled (Chronic) Hyperlipidemia (Chronic) Hypertension (Chronic) Family History Father Myocardial infarction Social History Preferred Language: Swedish Communication Ability: Effective marital status: Current Living Situation: Spouse current occupational status: employed Feels Safe at Home: Yes Smoking Status: Former smoker Tobacco Type: cigarettes ; Age Started Using Tobacco: 16 ; Cigarettes Per Day: 1PPD ; Hx Alcohol Use: No Hx Substance Use: No Dental Care, Regularly: Yes Physical Activity Frequency: Daily Seatbelt Use: always Sunscreen Use: No Review of Systems See HPI for pertinent positives & negatives. and A total of 10 systems reviewed and were otherwise negative Physical Exam Vital Signs Vital Signs - 24 hr 04/20/19 09:17 04/20/19 09:44 04/20/19 10:05 Temperature 36.6 C Temperature Source Oral Pulse Rate 48 L 52 L Pulse Rate [Right Finger] 52 L 42 L Respiratory Rate 18 12 14 Respiratory Effort / Characteristics Non-Labored Spontaneous Non-Labored Respiratory Depth Normal Normal Respiratory Pattern Regular Blood Pressure 171/107 H Blood Pressure [Right Arm] 187/85 H 212/197 H Blood Pressure Mean 128 Blood Pressure Mean [Right Arm] 119 202 Blood Pressure Position Sitting Pulse Oximetry 95 96 95 Oxygen Delivery Method Room Air Room Air Room Air Sepsis Recent Fever Within 48 Hours No Sepsis New/Unexplained Change in Mental Status No Sepsis Action Taken by Nursing No Action Required 04/20/19 10:10 04/20/19 10:15 04/20/19 10:21 Temperature Temperature Source Pulse Rate Pulse Rate [Right Finger] 42 L 45 L Respiratory Rate 16 12 Respiratory Effort / Characteristics Non-Labored Non-Labored Respiratory Depth Normal Normal Respiratory Pattern Blood Pressure Blood Pressure [Right Arm] 169/90 H 172/88 H Blood Pressure Mean Blood Pressure Mean [Right Arm] 116 116 Blood Pressure Position Pulse Oximetry 95 97 Oxygen Delivery Method Room Air Room Air Room Air Sepsis Recent Fever Within 48 Hours Sepsis New/Unexplained Change in Mental Status Sepsis Action Taken by Nursing 04/20/19 10:29 04/20/19 10:32 04/20/19 10:38 Temperature Temperature Source Pulse Rate Pulse Rate [Right Finger] 52 L 48 L 44 L Respiratory Rate 18 20 18 Respiratory Effort / Characteristics Non-Labored Non-Labored Respiratory Depth Normal Normal Respiratory Pattern Blood Pressure Blood Pressure [Right Arm] 180/82 H 151/80 H 158/88 H Blood Pressure Mean Blood Pressure Mean [Right Arm] 114 103 111 Blood Pressure Position Pulse Oximetry 97 97 98 Oxygen Delivery Method Room Air Room Air Room Air Sepsis Recent Fever Within 48 Hours Sepsis New/Unexplained Change in Mental Status Sepsis Action Taken by Nursing GENERAL: Awake, alert, well-appearing, in no distress HENT: Normocephalic, atraumatic. Oropharynx unremarkable. EYES: Normal conjunctiva. Sclera non-icteric. NECK: Supple. No nuchal rigidity. FROM. No masses. RESPIRATORY: Clear to auscultation. No wheezes. No rales. Normal respiratory effort. CARDIAC: Normal rate. Normal rhythm. No murmurs. No rubs. Extremities warm and well perfused. Pulses equal. No JVD. GI: Soft, non-distended. No tenderness to palpation. No rebound or guarding. No masses. RECTAL: Deferred. MUSCULOSKELETAL: Atraumatic. Chest examination reveals no tenderness. The back is symmetrical on inspection without obvious abnormality. There is no CVA tenderness to palpation. No joint edema. LOWER EXTREMITIES: Calves are equal size bilaterally and non-tender. No edema. No discoloration. NEURO: Normal sensorium. No sensory or motor deficits noted. Course Course 0921: Past medical records reviewed. The patient was evaluated in room A01, and a complete history and physical examination were performed. A stroke alert was called from triage and the patient was brought immediately to CT scan. 0929: I spoke to Dr. Jak Brody about the patient's case. She is going to evaluate the patient via Telestroke. 0955: Dr. Nieves evaluated the patient and suggested getting his blood pressure controlled and having him admitted for an MRI. 1015: I spoke to Dr. Bauer [facility] Hospitalist about the patient's case. She agreed to accept the patient for further evaluation. Consultations Consultation #1: I spoke to Dr. Jak Brody about the patient's case. She is going to evaluate the patient via Telestroke. Time: 09:29 Consultation #2: Dr. Nieves evaluated the patient and suggested getting his b lood pressure controlled and having him admitted for an MRI. Time: 09:55 Consultation #3: I spoke to Dr. Bauer [facility] Hospitalist about the patient's case. She agreed to accept the patient for further evaluation. Time: 10:15 Administered Medications Discontinued Medications Aspirin (Ecotrin Ectab) 81 mg PO [facility] Stop: 05/21/19 08:59 Last Admin: 04/21/19 08:01 Dose: 81 mg Documented by: [id number] Atorvastatin Calcium (Lipitor) 40 mg PO [facility] Stop: 05/20/19 20:59 Last Admin: 04/20/19 20:40 Dose: 40 mg Documented by: [id number] Clopidogrel Bisulfate (Plavix) 75 mg PO [facility] Stop: 05/21/19 08:59 Last Admin: 04/21/19 08:02 Dose: 75 mg Documented by: [id number] Enoxaparin Sodium (Lovenox) 40 mg SQ Q24H [facility] Stop: 05/20/19 13:59 Last Admin: 04/20/19 13:59 Dose: 40 mg Documented by: [id number] Folic Acid (Folvite) 2.5 mg PO [facility] Stop: 05/21/19 08:59 Last Admin: 04/21/19 08:01 Dose: 2.5 mg Documented by: [id number] Hydralazine HCl (Hydralazine Hcl) 10 mg IV NOW [facility] Stop: 04/20/19 10:11 Last Admin: 04/20/19 10:12 Dose: 10 mg Documented by: [id number] Sodium Chloride (Nss 1000ml) 1,000 mls @ 50 mls/hr IV .Q20H [facility] Stop: 05/20/19 09:29 Last Infusion: 04/20/19 12:11 Dose: 0 mls/hr Documented by: [id number] Admin: 04/20/19 10:12 Dose: 50 mls/hr Documented by: [id number] Magnesium Sulfate/Dextrose (Magnesium Sulfate / D5w) 1 gm in 100 mls @ 100 mls/hr IV ONE ONE Stop: 04/20/19 10:24 Last Infusion: 04/20/19 12:11 Dose: 0 mls/hr Documented by: [id number] Admin: 04/20/19 10:12 Dose: 100 mls/hr Documented by: [id number] Ioversol (Optiray 320 125ml) 120 ml IV ONCE PRN PRN Reason: Interaction Checking Stop: 04/24/19 09:26 Last Admin: 04/20/19 09:28 Dose: 120 ml Documented by: [id number] Menthol (Nice) 1 adele BUCCAL NOW STA Stop: 04/21/19 05:42 Last Admin: 04/21/19 06:03 Dose: 1 adele Documented by: [id number] Midodrine (Proamatine) 2.5 mg PO BID@0900,1500 MELI Stop: 05/20/19 14:59 Last Admin: 04/20/19 16:22 Dose: Not Given Documented by: [id number] Nicotine (Nicoderm Cq) 21 mg TD QAM MELI Stop: 05/21/19 12:59 Last Admin: 04/21/19 13:00 Dose: 21 mg Documented by: [id number] Perflutren Lipid Microsphere (Definity) 2 ml IV ONCE ONE Stop: 04/21/19 11:40 Last Admin: 04/21/19 11:40 Dose: 2 ml Documented by: [id number] Fluticasone/Salmeterol (Advair Diskus 100/50) 1 puffs INH BID MELI Stop: 05/20/19 20:59 Last Admin: 04/21/19 08:01 Dose: 1 puffs Documented by: [id number] Admin: 04/20/19 20:40 Dose: 1 puffs Documented by: [id number] Medical Decision Making Differential Diagnosis Differential Diagnosis includes but is not limited to dehydration, stroke, anemia, hypoglycemia, hyponatremia, hypernatremia, urinary tract infection, pneumonia, bronchitis, sepsis, gastroenteritis, additional abdominal pathology, metabolic abnormalities and infections. Medical Records Attestation: I reviewed the patient's medical records. Home Medications Current Medication List: was personally reviewed by me Laboratory Data Attestation: I reviewed the patient's lab results. Result diagrams: 04/21/19 05:17 04/21/19 05:17 Lab Results 04/20/19 04/20/19 04/20/19 Range/Units 09:27 09:27 09:27 WBC 9.64 (4.8-10.8) K/uL RBC 4.75 (4.7-6.1) M/uL Hgb 15.5 (14.0-18.0) g/dL POC Hgb (14.0-18.0) g/dl Hct 44.2 (42-52) % POC Hct (42-52) % MCV 93.1 (80-100) fL MCH 32.6 (25-34) pg MCHC 35.1 (32-36) g/dL RDW Std Deviation 45.6 (36.4-46.3) fL RDW Coeff of Dominga 13.4 (11.5-14.5) % Plt Count 186 (130-400) K/uL MPV 13.1 H (7.4-10.4) fL Immature Gran % (Auto) 0.3 % Neut % (Auto) 61.2 % Lymph % (Auto) 25.5 % Edmunds % (Auto) 8.1 % Eos % (Auto) 4.0 % Baso % (Auto) 0.9 % Immature Gran # (Auto) 0.03 H (0.00-0.02) K/uL Neut # (Auto) 5.89 (1.4-6.5) K/uL Lymph # (Auto) 2.46 (1.2-3.4) K/uL Edmunds # (Auto) 0.78 H (0.11-0.59) K/uL Eos # (Auto) 0.39 (0-0.5) K/uL Baso # (Auto) 0.09 (0-0.2) K/uL ESR (0-14) mm/hr PT Cancelled INR Cancelled APTT Cancelled PTT Ratio Cancelled POC Sodium (135-144) mEq/L Sodium 138 (136-145) mmol/L POC Potassium (3.3-5.0) mEq/L Potassium 4.1 (3.5-5.1) mmol/L POC Chloride (101-112) mEq/L Chloride 111 H (98-107) mmol/L Carbon Dioxide 26 (21-32) mmol/L POC Total CO2 (24-31) mEq/l Anion Gap 1.0 L (3-11) POC Anion Gap (16-25) mmol/L POC BUN (7-18) mg/dl BUN 12 (7-18) mg/dl Creatinine 0.95 (0.6-1.4) mg/dl POC Creatinine (0.6-1.3) mg/dl Est Cr Clr Drug Dosing 92.0 ml/min Est GFR ( Amer) 95.6 Est GFR (Non-Af Amer) 82.5 BUN/Creatinine Ratio 12.7 (10-20) Glucose 128 H (70-99) mg/dl POC Glucose (70-99) POC Glucose (other) (70-99) mg/dl Estimat Average Glucose mg/dl Hemoglobin A1c (4.5-5.6) % Calcium 9.0 (8.5-10.1) mg/dl POC Ioniz Calcium Theron (1.12-1.32) mmol/l Magnesium 2.1 (1.8-2.4) mg/dl Total Bilirubin 0.4 (0.2-1) mg/dl AST 25 (15-37) U/L ALT 42 (12-78) U/L Alkaline Phosphatase 97 (45-117) U/L Total Creatine Kinase 92 (39-308) U/L CK-MB (CK-2) 1.4 (0.5-3.6) ng/ml CK/CKMB % Calc 1.5 (0-3.0) Troponin I < 0.015 (0-0.045) ng/ml Total Protein 7.1 (6.4-8.2) gm/dl Albumin 3.1 L (3.4-5.0) gm/dl Globulin 4.0 (2.5-4.0) gm/dl Albumin/Globulin Ratio 0.8 L (0.9-2) Urine Color Urine Appearance (Clear) Urine pH (4.5-7.5) Ur Specific [place] (1.000-1.030) Urine Protein (Negative) Urine Glucose (UA) (Negative) Urine Ketones (Negative) Urine Blood (Negative) Urine Nitrite (Negative) Urine Bilirubin (Negative) Urine Urobilinogen (Negative) Ur Leukocyte Esterase (Negative) 04/20/19 04/20/19 04/20/19 Range/Units 09:27 09:27 09:27 WBC (4.8-10.8) K/uL RBC (4.7-6.1) M/uL Hgb (14.0-18.0) g/dL POC Hgb (14.0-18.0) g/dl Hct (42-52) % POC Hct (42-52) % MCV (80-100) fL MCH (25-34) pg MCHC (32-36) g/dL RDW Std Deviation (36.4-46.3) fL RDW Coeff of Dominga (11.5-14.5) % Plt Count (130-400) K/uL MPV (7.4-10.4) fL Immature Gran % (Auto) % Neut % (Auto) % Lymph % (Auto) % Edmunds % (Auto) % Eos % (Auto) % Baso % (Auto) % Immature Gran # (Auto) (0.00-0.02) K/uL Neut # (Auto) (1.4-6.5) K/uL Lymph # (Auto) (1.2-3.4) K/uL Edmunds # (Auto) (0.11-0.59) K/uL Eos # (Auto) (0-0.5) K/uL Baso # (Auto) (0-0.2) K/uL ESR 40 H (0-14) mm/hr PT INR APTT PTT Ratio POC Sodium (135-144) mEq/L Sodium (136-145) mmol/L POC Potassium (3.3-5.0) mEq/L Potassium (3.5-5.1) mmol/L POC Chloride (101-112) mEq/L Chloride (98-107) mmol/L Carbon Dioxide (21-32) mmol/L POC Total CO2 (24-31) mEq/l Anion Gap (3-11) POC Anion Gap (16-25) mmol/L POC BUN (7-18) mg/dl BUN (7-18) mg/dl Creatinine (0.6-1.4) mg/dl POC Creatinine (0.6-1.3) mg/dl Est Cr Clr Drug Dosing ml/min Est GFR ( Amer) Est GFR (Non-Af Amer) BUN/Creatinine Ratio (10-20) Glucose (70-99) mg/dl POC Glucose 116 H (70-99) POC Glucose (other) (70-99) mg/dl Estimat Average Glucose 148 mg/dl Hemoglobin A1c 6.8 H (4.5-5.6) % Calcium (8.5-10.1) mg/dl POC Ioniz Calcium Theron (1.12-1.32) mmol/l Magnesium (1.8-2.4) mg/dl Total Bilirubin (0.2-1) mg/dl AST (15-37) U/L ALT (12-78) U/L Alkaline Phosphatase (45-117) U/L Total Creatine Kinase (39-308) U/L CK-MB (CK-2) (0.5-3.6) ng/ml CK/CKMB % Calc (0-3.0) Troponin I (0-0.045) ng/ml Total Protein (6.4-8.2) gm/dl Albumin (3.4-5.0) gm/dl Globulin (2.5-4.0) gm/dl Albumin/Globulin Ratio (0.9-2) Urine Color Urine Appearance (Clear) Urine pH (4.5-7.5) Ur Specific [place] (1.000-1.030) Urine Protein (Negative) Urine Glucose (UA) (Negative) Urine Ketones (Negative) Urine Blood (Negative) Urine Nitrite (Negative) Urine Bilirubin (Negative) Urine Urobilinogen (Negative) Ur Leukocyte Esterase (Negative) 04/20/19 04/20/19 04/20/19 Range/Units 09:40 09:50 10:02 WBC (4.8-10.8) K/uL RBC (4.7-6.1) M/uL Hgb (14.0-18.0) g/dL POC Hgb 15.0 (14.0-18.0) g/dl Hct (42-52) % POC Hct 44 (42-52) % MCV (80-100) fL MCH (25-34) pg MCHC (32-36) g/dL RDW Std Deviation (36.4-46.3) fL RDW Coeff of Dominga (11.5-14.5) % Plt Count (130-400) K/uL MPV (7.4-10.4) fL Immature Gran % (Auto) % Neut % (Auto) % Lymph % (Auto) % Edmunds % (Auto) % Eos % (Auto) % Baso % (Auto) % Immature Gran # (Auto) (0.00-0.02) K/uL Neut # (Auto) (1.4-6.5) K/uL Lymph # (Auto) (1.2-3.4) K/uL Edmunds # (Auto) (0.11-0.59) K/uL Eos # (Auto) (0-0.5) K/uL Baso # (Auto) (0-0.2) K/uL ESR (0-14) mm/hr PT 10.3 INR 1.0 APTT 27.9 PTT Ratio 1.0 POC Sodium 141 (135-144) mEq/L Sodium (136-145) mmol/L POC Potassium 4.1 (3.3-5.0) mEq/L Potassium (3.5-5.1) mmol/L POC Chloride 106 (101-112) mEq/L Chloride (98-107) mmol/L Carbon Dioxide (21-32) mmol/L POC Total CO2 23 L (24-31) mEq/l Anion Gap (3-11) POC Anion Gap 17.0 (16-25) mmol/L POC BUN 12 (7-18) mg/dl BUN (7-18) mg/dl Creatinine (0.6-1.4) mg/dl POC Creatinine 0.9 (0.6-1.3) mg/dl Est Cr Clr Drug Dosing ml/min Est GFR ( Amer) Est GFR (Non-Af Amer) BUN/Creatinine Ratio (10-20) Glucose (70-99) mg/dl POC Glucose (70-99) POC Glucose (other) 127 H (70-99) mg/dl Estimat Average Glucose mg/dl Hemoglobin A1c (4.5-5.6) % Calcium (8.5-10.1) mg/dl POC Ioniz Calcium Theron 1.22 (1.12-1.32) mmol/l Magnesium (1.8-2.4) mg/dl Total Bilirubin (0.2-1) mg/dl AST (15-37) U/L ALT (12-78) U/L Alkaline Phosphatase (45-117) U/L Total Creatine Kinase (39-308) U/L CK-MB (CK-2) (0.5-3.6) ng/ml CK/CKMB % Calc (0-3.0) Troponin I (0-0.045) ng/ml Total Protein (6.4-8.2) gm/dl Albumin (3.4-5.0) gm/dl Globulin (2.5-4.0) gm/dl Albumin/Globulin Ratio (0.9-2) Urine Color Yellow Urine Appearance Clear (Clear) Urine pH 7.5 (4.5-7.5) Ur Specific [place] 1.014 (1.000-1.030) Urine Protein Negative (Negative) Urine Glucose (UA) Negative (Negative) Urine Ketones Negative (Negative) Urine Blood Negative (Negative) Urine Nitrite Negative (Negative) Urine Bilirubin Negative (Negative) Urine Urobilinogen Negative (Negative) Ur Leukocyte Esterase Negative (Negative) Imaging Data Radiologist's Impression: Radiology results as stated below per my review and the radiologist's interpretation: XR chest 1V portable CLINICAL HISTORY: stroke alert COMPARISON STUDY: Chest radiograph June 24, 2007. FINDINGS: Lung volumes are normal. Lungs are clear. There is no pneumothorax or pleural effusion. Cardiac size is normal. Mediastinal contours are normal. There is no evidence for pulmonary edema. Right neck surgical clips are incidentally noted. IMPRESSION: No acute cardiopulmonary findings. ACT 112: Negative or not required by law. Electronically signed by: Eleuterio Finney M.D. 04/20/2019 9:[address] OF THE HEAD WITHOUT CONTRAST CLINICAL HISTORY: Stroke evaluation COMPARISON STUDY: Head CT April 12, 2019. MRI of the brain April 12, 2019. TECHNIQUE: Helical axial images of the head were obtained without IV contrast. Automated exposure control was utilized for the study. A dose lowering technique was utilized adhering to the principles of ALARA. FINDINGS: No acute intracranial hemorrhage, midline shift or mass effect is present. The ventricular system is unremarkable. The basilar cisterns are patent. No extra-axial collections are present. There are no findings to suggest acute dural sinus thrombosis or acute territorial infarct. No significant calvarial abnormalities are present. Visualized portions of the sinuses and mastoid air cells are clear. White matter hypodensities are unchanged and suggest small vessel disease. IMPRESSION: No acute intracranial findings. ACT 112: Negative or not required by law. Electronically signed by: Eleuterio Finney M.D. 04/20/2019 9:49 AM NECK CTA HISTORY: Pt c/o facial droop TECHNIQUE: Multiaxial CT images of the neck were performed following the intravenous administration of contrast to evaluate the major cervical vessels. Maximum intensity projection images were also obtained. All measurements were calculated based on NASCET criteria. A dose lowering technique was utilized adhering to the principles of ALARA. COMPARISON STUDY: Neck MRA 11/23/1937 and neck CTA 04/12/2019. FINDINGS: There is persistent mediastinal lymphadenopathy. Dominant subcarinal lymph node measures 3.6 x 1.6 cm. There is also mild right hilar lymphadenopathy. Small amount of soft tissue gas and mild edema in the right sternocleidomastoid muscle and mild edema within the right carotid sheath consistent with interval carotid endarterectomy. No significant stenosis or occlusion within the right common or internal carotid artery status post endarterectomy. Small linear filling defect at the carotid bifurcation suggestive of an incomplete intimal flap in the setting of a focal dissection. However, both lumens opacify. This could also be due to postoperative change. The aortic arch and proximal great vessels are widely patent. No significant stenosis within the left common carotid artery. Moderate narrowing at the takeoff of the left vertebral artery. Otherwise, the remaining bilateral vertebral arteries are widely patent. Focal short segment of 60-70% stenosis within the proximal left internal carotid artery, unchanged. IMPRESSION: 1. Interval right-sided carotid endarterectomy with no significant stenosis or occlusion within the right carotid arteries. 2. There is a small incomplete focal intimal flap at the right carotid bifurcation suggestive of a focal dissection. However, both lumens opacify. This could also be due to postoperative change. 3. No significant change in the 60-70% focal stenosis within the proximal left internal carotid artery. 4. Persistent mediastinal and right hilar lymphadenopathy. This raises the possibility of a lymphoproliferative disorder or metastatic disease. ACT 112: Negative or not required by law. Electronically signed by: Diaz Leal M.D. 04/20/2019 9:[address] angio head w con CLINICAL HISTORY: stroke TECHNIQUE: CT angiography of the head was performed in a dynamic helical fashion during intravenous administration of 120 cc of Optiray 320. MIP imaging was performed. A dose lowering technique was utilized adhering to the principles of ALARA. CT DOSE: 1255.34 mGy.cm COMPARISON STUDY: No previous studies for comparison. FINDINGS: There are no lesion suspicious for aneurysm. There are no major intr acranial branch occlusions. The dural venous sinuses appear patent. IMPRESSION: Unremarkable CT angiography of the brain. ACT 112: Negative or not required by law. Electronically signed by: Christopher Sears M.D. 04/20/2019 9:49 AM MRI OF THE BRAIN WITHOUT CONTRAST CLINICAL HISTORY: Left-sided numbness. Evaluate for cerebrovascular accident. COMPARISON STUDY: MRI of the brain April 12, 2019. Head CT and CTA performed earlier today. TECHNIQUE: Utilizing a 1.5 Ginger magnet and dedicated coil, multiplanar, multiecho imaging of the brain was performed without IV contrast. FINDINGS: There are no foci of restricted diffusion to suggest acute infarct. No acute intracranial hemorrhage, midline shift or mass effect is present. Ventricular system is stable. Basilar cisterns are patent. There are no extra axial collections. No intracranial masses are identified on this unenhanced exam. Numerous white matter T2 hyperintense foci are similar to MRI April 12, 2019. The appearance of the brain is unchanged. 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 Calvarial signal is normal. IMPRESSION: 1. No acute intracranial findings. 2. No change in appearance of the brain since exam April 12, 2019. ACT 112: Negative or not required by law. Electronically signed by: Eleuterio Finney M.D. 04/20/2019 11:22 AM ECG Data Attestation: I personally reviewed and interpreted this ECG as follows: Indication: + weakness Rate (beats per minute): 46 Rhythm: + sinus bradycardia ECG Intervals/blocks: + Normal QT-c (418) ECG [place]: + Normal ECG ST segments: no ST depression and no ST elevation Blood Pressure Blood Pressure Findings: Elevated blood pressure Blood Pressure Disposition: Referred to patients primary care provider MDM Narrative This is a 68-year-old male who was recently discharged from [place] who now presents emergency department with concerns of weakness. I will note that the patient's blood pressure is elevated here. A stroke alert was initiated however I do not feel that the patient is a TPA candidate as he recently had surgery on his carotid artery. The patient was discussed with the neurologist from [place] who is requesting an MRI as well as admission and blood pressure control. Patient was started on hydralazine here in the emergency department. I did discuss the case with the hospitalist service who did agree to admit the patient. Patient was in agreement with the treatment plan. Impression & Plan Hypertensive urgency, History of right-sided carotid endarterectomy, Stroke- like symptoms Discharge Plan Visit Data *Final* Discharge Date/Time: 04/20/19 11:50 Chief Complaint: Neuro Symptoms/Deficit Stated Complaint: NUMBNESS ON L SIDE ED Provider: Boone Owusu Discharge Problem: Hypertensive urgency, History of right-sided carotid endarterectomy, Stroke- like symptoms Patient Disposition: Admitted As Inpatient Discharge Instructions Interventions: ED Discharge Assessment Last Done: 04/20/19 11:50 The scribe's documentation has been prepared under my direction and personally reviewed by me in its entirety. I confirm that the note above accurately reflects all work, treatment, procedures, and medical decision making performed by me.
[2019-04-20] MEDS: FLUTICASONE/SALMETEROL 100/50 (ADVAIR) 14 PUFF/1 INHALER INH SCH (20:40)
[2019-04-20] MEDS ORDERED: ATORVASTATIN 40 MG TAB PO SCH (21:00)
[2019-04-21] MEDS ORDERED: COUGH DROP (SUGAR FREE) LOZ 24 LOZ/1 BOX BUCCAL STA (05:41)
[2019-04-21 05:58] LABS: Basophils # (auto) 0.08 K/uL (0-0.2); Basophils % (auto) 0.8 %; Eosinophils # (auto) 0.47 K/uL (0-0.5); Eosinophils % (auto) 4.7 %; Hematocrit (blood only) 44.3 % (42-52); Hemoglobin 15.2 g/dL (14.0-18.0); Immature Granulocytes # (auto) 0.03 K/uL (0.00-0.02); Immature Granulocytes % (auto) 0.3 %; Lymphocytes # (auto) 2.49 K/uL (1.2-3.4); Mean Corpuscular Hgb Conc 34.3 g/dL (32-36); Mean Corpuscular Volume 93.3 fL (80-100); Mean Platelet Volume 13.1 fL (7.4-10.4); Monocytes # (auto) 0.73 K/uL (0.11-0.59); Monocytes % (auto) 7.3 %; Neutrophils # (auto) 6.15 K/uL (1.4-6.5); Neutrophils % (auto) 61.9 %; Platelet Count 174 K/uL (130-400); RDW Coefficient of Variation 13.6 % (11.5-14.5); RDW Standard Deviation 46.1 fL (36.4-46.3); Red Blood Count 4.75 M/uL (4.7-6.1); White Blood Count 9.95 K/uL (4.8-10.8)
[2019-04-21 06:36] LABS: Calcium 8.8 mg/dl (8.5-10.1); Creatinine Clr Calc Pharmacy 81.8 ml/min; Est GFR (African American) 83.8; Est GFR (Non-African American) 72.3
[2019-04-21 06:51] LABS: Influenza A virus by PCR Neg for Influ A (Neg); Influenza B virus by PCR Neg for Influ B (Neg)
[2019-04-21] MEDS: FLUTICASONE/SALMETEROL 100/50 (ADVAIR) 14 PUFF/1 INHALER INH SCH (08:01)
[2019-04-21] MEDS ORDERED: FOLIC ACID 1 MG TAB PO SCH (09:00)
[2019-04-21] MEDS ORDERED: ASPIRIN 81 MG ECTAB PO SCH (09:00)
[2019-04-21] MEDS ORDERED: CLOPIDOGREL BISULFATE 75 MG TAB PO SCH (09:00)
[2019-04-21] MEDS ORDERED: PERFLUTREN LIPID MICROSPHERE (DEFINITY) IV ONE (11:39)
[2019-04-21] MEDS ORDERED: STROKE PATIENT DISCHARGE STA (12:14)
[2019-04-21] MEDS ORDERED: NICOTINE 21 MG/24 HR TDSY TD SCH (13:00)
--- NOTE | 2019-04-21 19:00 | Discharge Summary ---
Date of Service April 21, 2019 Admission HPI Per Admitting Provider Patient is a 68 years old male with past medical history of hypertension, diabetes mellitus type 2 uncontrolled, hyperlipidemia, stenosis of the right internal carotid artery s/p endarterectomy, stenosis of the left internal carotid artery who presented to the emergency room with complaint of facial droop and feeling dizzy since this morning. Per patient and his his appearance improved after arrival to the emergency room. Just last week patient was seen at [facility] and had endarterectomy of symptomatic right ICA stenosis with probably small subcortical non-imaginable stroke with right-sided residual hypoesthesia. Patient reports that on the discharge from [facility] he was told to discontinue atenolol 50 mg daily and hydrochlorothiazide 25 mg daily. He was also advised to check his blood pressure and if his blood pressure is high to take just half of atenolol 50 mg as needed. This morning patient took atenolol 25 mg without previously checking a blood pressure and on arrival to the emergency room his heart rate was in the range of 40-50 but blood pressure continued to be high systolic 150- 212 and diastolic 80-110. Patient received hydralazine in the ER 10 mg IV x1 metoprolol 5 mg IV x1 and magnesium 1 g IV x1. Patient denies fever, chills, headache, chest pain, shortness of breath, abdominal pain, frequency, urgency, syncope or near syncope. Facial droop improved and it was not present at the time of the clinical examination. Labs are reviewed: WBC is 9.64, hemoglobin 15.5, hematocrit 44.2, platelets 186, PT 10.3, INR 1, APTT 27.9. Sodium 138, potassium 4.1, chloride 111, anion gap 1, BUN 12, creatinine 0.95, GFR 82.5, magnesium 2.1, glucose 128, AST 25, ALT 42, troponin 0.015, TSH pending, BNP pending, A1c pending. Urine all negative. Decision was made to admit patient to PCU on telemetry for apparently strokelike symptoms, hypertensive urgency, bradycardia and further treatment and management. Principal Diagnosis TIA-related symptoms, likely related to high blood pressure after a right CEA. Discharge Exam Constitutional WD/WN, vitals as above Eyes EOM intact bilaterally; no conjunctival abnormality ENMT external ear and nose normal, oropharynx normal Neck trachea midline, no thyromegaly normal visual inspection Surgical scar on right side. Healing well. No erythema. Respiratory normal respiratory effort, lungs clear to auscultation no respiratory distress Cardiovascular RRR, no murmur, no edema Gastrointestinal (Abdomen) Inspection/Auscultation: abdomen normal to inspection; abdomen not distended Musculoskeletal no cyanosis or clubbing, extremities motor strength 5/5 Skin no rashes, warm and dry Neurologic moves all extremities and awake Psychiatric Orientation: alert, oriented to person and cooperative Discharge Data Allergies Allergy/AdvReac Type Severity Reaction Status Date / Time No Known Allergies Allergy Unverified 04/20/19 10:15 Consultations 04/20/19 10:11 ED Decision to Admit Stat 04/20/19 13:03 Consult Case Management - Discharge Planning Routine Consult Neurology Routine Ordered Studies 04/20/19 09:23 CT angio neck with con Stat CT head/brain wo con Stat 04/20/19 09:24 CT angio head w con Stat 04/20/19 09:57 MR brain wo con Stat Hospital Course (1) Transient ischemic attack: Likely due to blood pressure changes with his recent CEA. - BP was stable off the midodrine. He felt well and wanted to go home. I had him hold his atenolol as his HR was in the 50s and BP was at goal without it. He may need to restart this eventually. - Continue ASA/Plavix/statin - The CTA neck on 04/20 showed a "small incomplete focal intimal flap at the right carotid bifurcation suggestive of a focal dissection. However, both lumens opacify." This was discussed with neurology who felt a carotid doppler in 4-6 weeks was appropriate. The patient will follow up with his [place] surgeon for testing. (2) Occlusion of right internal carotid artery: Patient is s/p endarterectomy of the right internal carotid artery for symptomatic right ICA stenosis and probably small subcortical non-imagable stroke, with residual left-sided hypoesthesia. - MRI brain on 04/20 did not show any acute stroke. No change since MRI brain on 04/12/2019. (3) Hypertensive urgency: Possibly due to midodrine and/or transient vasovagal changes from the surgery. - Normal BP on discharge. (4) Hypertension: BP stable as above. - Restart atenolol as needed as outpatient. (5) Diabetes mellitus type 2, uncontrolled: A1c was 6.8%. - Patient controls his diabetes with diet. (6) Hyperlipidemia: Continue atorvastatin 40 mg p.o. nightly (7) Stenosis of left internal carotid artery: Per CTA of the neck, there is no significant change in the 60 to 70% focal stenosis within the proximal left internal carotid artery. - Continue medical management with atorvastatin 40 mg p.o. nightly and aspirin 81 mg p.o. daily and clopidogrel 75 mg p.o. every morning. Total Time Total Time Spent Total Time Spent (In Minutes): 35 Discharge Plan Discharge Items Patient Disposition: Home - Self-Care Reason For Visit: HYPERTENSIVE URGENY, TIA Discharge Diagnosis: Possible TIA vs. complication of carotid surgery. Activity: Resume your previous activity Non-emergency contact: Primary Care Provider and Surgeon Call non-emergency contact if: your symptoms worsen, your pain is worsening and your temperature is above 101 Follow-up/Referrals: Jb Coronel III, MD [Primary Care Provider] - Diet: Heart Healthy Addtl Attending Provider Instructions: You were admitted to the hospital with stroke-like symptoms. These could have been caused by high blood pressure so recently after your surgery. Please STOP the midodrine as it can make your blood pressure too high which I think happened this time. You can hold the atenolol until you see your PCP, Dr. Coronel next week. If you blood pressure and heart rate are returning to normal, you can restart this, but for now, just hold it. Pending Studies at Discharge: No Stand-Alone Forms: [facility], Smoking Cessation Medications and DC Order Prescriptions: New nicotine [Nicoderm CQ] 21 mg/24 hr patch 24 hour 1 patch TD DAILY Qty: 14 RF: 0 Continued (DME) OneTouch Ultra Blue Test Strip strip See Rx Instructions .ROUTE .MEDSUPPLY Qty: 300 RF: 3 fluticasone propion-salmeterol 100-50 mcg/dose blister with device 1 puffs inhalation BID Qty: 1 RF: 0 clopidogrel 75 mg tablet 75 mg PO QAM RF: 0 aspirin 81 mg Tablet,Delayed Release (Dr/Ec) 81 mg PO QAM RF: 0 folic acid 1 mg Tablet 2.5 mg PO QAM RF: 0 atorvastatin 20 mg tablet 40 mg PO HS RF: 0 Discontinued midodrine 2.5 mg tablet 2.5 mg PO BID RF: 0 Discharge Orders: Discharge Order (Routine); Ordered 04/21/19 Ordered By: Sj Kothari/Other Patient Handouts: Hyperglycemia, Diabetes Type 2 Coping, Diabetes Healthy Meals Admission Data Admit Date/Time: 04/20/19 10:40 Attending Provider: Sj Belle Admit Provider: Hiwot Bauer Primary Care Provider: Jb Coronel III Other Providers: Genny Jenkins ; Sj Belle Other Interventions: Discharge Summary Assessment (RN) Last Done: 04/21/19 12:22 DC Date/Time DO NOT enter until pt leaves facility: 04/21/19 13:36
== END 2019-04-21 13:36 | disposition home or self-care (01) ==
LOC: ED 09:12 → 2E 09:12 → SUATTDRO 10:40 → 2E 11:50

== ENCOUNTER 2020-06-22 10:54 | Inpatient (IN) ==
--- NOTE | 2020-06-22 11:46 | XRay Report ---
XR chest 1V portable CLINICAL HISTORY: Stroke Like Symptoms COMPARISON STUDY: April 20, 2019 FINDINGS: The heart is normal in size. There are bilateral interstitial pulmonary airspace opacities with a peripheral distribution. Clinical correlation with regards Covid 19 pneumonia is recommended. There are no significant pleural effusions[ IMPRESSION: 1. Bilateral pulmonary opacities with a peripheral distribution. The findings are suspicious for a mu ltifocal pneumonia. Clinical correlation with Covid 19 serology recommended. ACT 112: Negative or not required by law. Electronically signed by: Christopher Sears M.D. 06/22/2020 11:44 AM
--- NOTE | 2020-06-22 11:52 | Emergency Department Note ---
Impression & Plan Pneumonia due to 2019 novel coronavirus, Hypoxia, Decreased vision of right eye, Hypokalemia ED Provider Note NAME: CALOS LUCAS AGE: 69 SEX: M : 1950 ARRIVES VIA: Walk-In INFORMANT: Patient, ED PROVIDER(S): Leonid Wilhelm DO CHIEF COMPLAINT: Visual difficulty HPI: The patient is a 69-year-old male who presented to the emergency department with difficulty seeing out of his right eye. The patient states that he has a history of a stroke which presented similarly many years ago. He was also recently diagnosed with COVID-19 infection. He had a test of was done on Friday. He was called yesterday to be told that his test was positive for COVID-19. He has been noticing cough and difficulty breathing. He has been having significant shortness of breath especially with any ambulation. His doctor called him today to see how he was feeling because his Covid swab was positive. When he told him he was having difficulty seeing out of his right eye since yesterday they told him to come to the emergency department immediately. He denies having any abdominal pain or vomiting. He said no diarrhea. He has no lower extremity swelling or headache. He has no weakness on his upper or lower extremities. ROS: See above HPI for pertinent positives & negatives. A total of 10 systems reviewed and were otherwise negative. PAST MEDICAL HISTORY: See Below PAST SURGICAL HISTORY: See Below FAMILY HISTORY: See Below SOCIAL HISTORY: See Below HOME MEDICATIONS: See Below ALLERGIES: See Below VITALS: See Below PHYSICAL EXAMINATION: GENERAL: Patient is awake alert in no acute distress patient is resting comfortably and showing no signs of anxiety EYES: The conjunctivae are clear. The pupils are round. The right pupil is minimally reactive to light. There is a consensual light reflex noted. EARS, NOSE, MOUTH AND THROAT: The nose is without any evidence of any deformity. NECK: The neck is nontender and supple. RESPIRATORY: Diminished breath sounds are noted at the right base. There is mild tachypnea and mild conversational dyspnea. CARDIOVASCULAR: Regular rate and rhythm noted there no murmurs rubs or gallops normal S1 normal S2. GASTROINTESTINAL: The abdomen is soft. Abdomen is nontender. MUSCULOSKELETAL/EXTREMITIES: There is no evidence of gross deformity full range of motion is noted in the hips and shoulders. SKIN: There is no obvious evidence of any rash. There are no petechiae, pallor or cyanosis noted. NEUROLOGIC: Patient is awake alert and oriented x3 strength is symmetric patellar reflexes are 2+ bilaterally MEDICAL DECISION MAKING: The patient is a 69-year-old male who presented to the emergency department with difficulty breathing. The patient was recently diagnosed with COVID-19 infection. His family doctor called to check on him today and the patient related that he was having decreased vision in his right eye since yesterday which is consistent with his previous episode of stroke. The patient was referred to the emergency department for further evaluation. He has no other focal neurologic deficits. I discussed the patient's laboratory and radiographic studies with him. This included a stroke work-up which included CT and CT angiography of the head and neck. This is did not show any acute disease. The patient's chest x-ray does appear to be consistent with pulmonary infiltrate. Given his COVID-19 positive and his hypoxia I [facility] have agreed to evaluate the patient in the emergency department for further management and disposition. Triage Nursing notes reviewed. Prior medical records reviewed Vital Signs: reviewed and remarkable for hypoxia. Differential diagnosis: Infection, dehydration, metabolic abnormality, hypo/hyperglycemia, electrolyte disturbance, anemia, hypoxia, cardiac sources, intracerebral event, toxicologic, neurologic, as well as other pathologies. ER treatment provided: See below Diagnostics interpreted by me: ECG: EKG was obtained in the emergency department. My interpretation is normal sinus rhythm at 70 bpm. There was no ectopy. Diffuse ST segment abnormalities were appreciated. This was compared to a tracing from April 30, 2019. The ST segment abnormalities are new compared to the previous tracing. Cardiac Monitoring: An order was placed for continuous cardiac monitoring. The monitor shows a rate of 85 bpm with sinus rhythm. Laboratory studies: As stated above and show below. Imaging studies: See below Consultation(s): I discussed this case with Dr. Dorantes who [facility] They will evaluate the patient in the emergency department for further management and disposition. Past Med/Surg History Medical History (Updated 06/22/20 @ 15:15 by Leonid Wilhelm DO) Diabetes mellitus type 2, uncontrolled Hyperlipidemia Hypertension Surgical History History of cholecystectomy Family History Father Myocardial infarction Father COPD (chronic obstructive pulmonary disease) Coronary heart disease Diabetes Family/Other Stroke FH: deafness or hearing loss Mother Stroke Denies family history of Ovarian cancer Prostate cancer Breast cancer Colorectal cancer Social History Smoking Status: Former smoker Tobacco Type: Cigarettes Age Started Using Tobacco: 16; packs per day: 0.5; Years Smoked: 52; Cigarettes Per Day: 10; Second Hand Exposure: Yes; Hx Alcohol Use: No Hx Substance Use: No Preferred Language: Norwegian Communication Ability: Effective Visual Impairment: No Limitations Hearing Ability: Use of Hearing Aid marital status: Current Living Situation: Spouse current occupational status: employed Feels Safe at Home: Yes Childhood Exposure to Second-Hand Smoke: Yes Dental Care, Regularly: Yes Physical Activity Frequency: 1-2 Times per Week Physical Activity Frequency Comment: walks, 15 mintues Seatbelt Use: always Sunscreen Use: No Assistive Devices: None Allergies Allergies Allergy/AdvReac Type Severity Reaction Status Date / Time No Known Allergies Allergy Unverified 06/22/20 12:06 Home Meds Home Medications Medication Instructions Recorded Confirmed escitalopram oxalate 10 mg PO DAILY 06/22/20 06/22/20 Previous Rx's Medication Instructions Recorded atorvastatin 40 mg tablet 40 mg PO DAILY #90 tab 04/18/20 clopidogrel 75 mg tablet 75 mg PO QAM #90 tab 04/18/20 hydrochlorothiazide 25 mg tablet 25 mg PO DAILY #90 tab 04/18/20 losartan 50 mg tablet 50 mg PO DAILY #90 tab 04/18/20 metformin 500 mg tablet 500 mg PO BID #180 tab 04/18/20 fluticasone 100 mcg-salmeterol 50 1 inh INHALATION BID #60 ea 04/20/20 mcg/dose blistr powdr for inhalation blood sugar diagnostic #100 ea 05/23/20 folic acid 1 mg tablet 2.5 mg PO QAM 90 Days #225 tab 06/13/20 Results & Data (ED) Vital Signs Vital Signs - 24 hr 06/22/20 11:03 06/22/20 12:15 06/22/20 12:25 Temperature 35.5 C L Temperature Source Temporal Artery Scan Pulse Rate 80 Pulse Rate [Apical] 71 Pulse Rate from SpO2 Sensor Pulse Rhythm Regular Pulse Rhythm [Apical] Pulse Strength Normal Respiratory Rate 16 20 Respiratory Effort / Characteristics SOB on Exertion Respiratory Depth Normal Respiratory Pattern Regular Blood Pressure Blood Pressure [Right Arm] 116/68 Blood Pressure Mean Blood Pressure Mean [Right Arm] 84 Blood Pressure Position Sitting Pulse Oximetry 88 L 89 L 92 Oxygen Delivery Method Room Air Room Air Nasal Cannula Oxygen Flow Rate 3 Sepsis Recent Fever Within 48 Hours No Sepsis New/Unexplained Change in Mental Status N/A Sepsis Action Taken by Nursing No Action Required 06/22/20 13:26 06/22/20 14:00 06/22/20 14:46 Temperature 36.6 C Temperature Source Oral Pulse Rate 60 Pulse Rate [Apical] 64 Pulse Rate from SpO2 Sensor 59 L 59 L Pulse Rhythm Pulse Rhythm [Apical] Regular Pulse Strength Respiratory Rate 21 16 Respiratory Effort / Characteristics Non-Labored Respiratory Depth Normal Respiratory Pattern Blood Pressure 113/60 113/60 Blood Pressure [Right Arm] 110/67 Blood Pressure Mean 77 77 Blood Pressure Mean [Right Arm] 81 Blood Pressure Position Pulse Oximetry 90 92 94 Oxygen Delivery Method Room Air Oxygen Flow Rate 2.5 2.5 Sepsis Recent Fever Within 48 Hours Sepsis New/Unexplained Change in Mental Status Sepsis Action Taken by Nursing 06/22/20 15:01 Temperature Temperature Source Pulse Rate 60 Pulse Rate [Apical] Pulse Rate from SpO2 Sensor 61 Pulse Rhythm Pulse Rhythm [Apical] Pulse Strength Respiratory Rate Respiratory Effort / Characteristics Respiratory Depth Respiratory Pattern Blood Pressure 127/62 Blood Pressure [Right Arm] Blood Pressure Mean 83 Blood Pressure Mean [Right Arm] Blood Pressure Position Pulse Oximetry 93 Oxygen Delivery Method Oxygen Flow Rate 2.5 Sepsis Recent Fever Within 48 Hours Sepsis New/Unexplained Change in Mental Status Sepsis Action Taken by Jail Medications Current Medication List: was personally reviewed by me Laboratory Data Attestation: I reviewed the patient's lab results. Result diagrams: 06/22/20 12:04 06/22/20 12:04 Lab Results 06/22/20 06/22/20 06/22/20 Range/Units 12:04 12:04 12:04 WBC 10.30 (4.8-10.8) K/uL RBC 4.80 (4.7-6.1) M/uL Hgb 15.6 (14.0-18.0) g/dL Hct 41.2 L (42-52) % MCV 85.8 (80-100) fL MCH 32.5 (25-34) pg MCHC 37.9 H (32-36) g/dL RDW Std Deviation 41.7 (36.4-46.3) fL RDW Coeff of Dominga 13.2 (11.5-14.5) % Plt Count 451 H (130-400) K/uL MPV 11.3 H (7.4-10.4) fL Immature Gran % (Auto) 0.6 % Neut % (Auto) 72.2 % Lymph % (Auto) 14.3 % Webster % (Auto) 10.8 % Eos % (Auto) 1.7 % Baso % (Auto) 0.4 % Neut # (Auto) 7.44 H (1.4-6.5) K/uL Lymph # (Auto) 1.47 (1.2-3.4) K/uL Webster # (Auto) 1.11 H (0.11-0.59) K/uL Eos # (Auto) 0.18 (0-0.5) K/uL Baso # (Auto) 0.04 (0-0.2) K/uL Immature Gran # (Auto) 0.06 H (0.00-0.02) K/uL ESR (0-14) mm/hr PT 10.5 (9.0-12.0) Seconds INR 1.0 (0.9-1.1) APTT 26.4 (21.0-31.0) Seconds PTT Ratio 1.0 VBG pH (7.36-7.41) VBG pCO2 (38-50) mmHg VBG pO2 mmHg VBG HCO3 mmol/L VBG O2 Saturation % VBG Base Excess mEq/L Barometric Pressure mm/Hg Sodium 132 L (136-145) mmol/L Potassium 2.6 L (3.5-5.1) mmol/L Chloride 98 (98-107) mmol/L Carbon Dioxide 23 (21-32) mmol/L Anion Gap 11.0 (3-11) BUN 29 H (7-18) mg/dl Creatinine 1.34 (0.6-1.4) mg/dl Est Cr Clr Drug Dosing 61.3 ml/min Est GFR ( Amer) 62.6 Est GFR (Non-Af Amer) 54.1 BUN/Creatinine Ratio 21.6 H (10-20) Glucose 146 H (70-99) mg/dl Calcium 9.1 (8.5-10.1) mg/dl Magnesium 2.3 (1.8-2.4) mg/dl Total Bilirubin 1.3 H (0.2-1) mg/dl AST 117 H (15-37) U/L ALT 127 H (12-78) U/L Alkaline Phosphatase 130 H (45-117) U/L Troponin I < 0.015 (0-0.045) ng/ml C-Reactive Protein (0-0.29) mg/dl Total Protein 7.8 (6.4-8.2) gm/dl Albumin 2.2 L (3.4-5.0) gm/dl Globulin 5.6 H (2.5-4.0) gm/dl Albumin/Globulin Ratio 0.4 L (0.9-2) 06/22/20 06/22/20 06/22/20 Range/Units 12:04 12:04 12:04 WBC (4.8-10.8) K/uL RBC (4.7-6.1) M/uL Hgb (14.0-18.0) g/dL Hct (42-52) % MCV (80-100) fL MCH (25-34) pg MCHC (32-36) g/dL RDW Std Deviation (36.4-46.3) fL RDW Coeff of Dominga (11.5-14.5) % Plt Count (130-400) K/uL MPV (7.4-10.4) fL Immature Gran % (Auto) % Neut % (Auto) % Lymph % (Auto) % Webster % (Auto) % Eos % (Auto) % Baso % (Auto) % Neut # (Auto) (1.4-6.5) K/uL Lymph # (Auto) (1.2-3.4) K/uL Webster # (Auto) (0.11-0.59) K/uL Eos # (Auto) (0-0.5) K/uL Baso # (Auto) (0-0.2) K/uL Immature Gran # (Auto) (0.00-0.02) K/uL ESR 72 H (0-14) mm/hr PT (9.0-12.0) Seconds INR (0.9-1.1) APTT (21.0-31.0) Seconds PTT Ratio VBG pH 7.49 H (7.36-7.41) VBG pCO2 32 L (38-50) mmHg VBG pO2 48 mmHg VBG HCO3 24 mmol/L VBG O2 Saturation 86.7 % VBG Base Excess 1.1 mEq/L Barometric Pressure 735.6 mm/Hg Sodium (136-145) mmol/L Potassium (3.5-5.1) mmol/L Chloride (98-107) mmol/L Carbon Dioxide (21-32) mmol/L Anion Gap (3-11) BUN (7-18) mg/dl Creatinine (0.6-1.4) mg/dl Est Cr Clr Drug Dosing ml/min Est GFR ( Amer) Est GFR (Non-Af Amer) BUN/Creatinine Ratio (10-20) Glucose (70-99) mg/dl Calcium (8.5-10.1) mg/dl Magnesium (1.8-2.4) mg/dl Total Bilirubin (0.2-1) mg/dl AST (15-37) U/L ALT (12-78) U/L Alkaline Phosphatase (45-117) U/L Troponin I (0-0.045) ng/ml C-Reactive Protein 15.10 H (0-0.29) mg/dl Total Protein (6.4-8.2) gm/dl Albumin (3.4-5.0) gm/dl Globulin (2.5-4.0) gm/dl Albumin/Globulin Ratio (0.9-2) Administered Medications Potassium Chloride (K Fede / Wtr) 10 meq in 100 mls @ 100 mls/hr IV Q1H MELI Stop: 06/22/20 16:29 Last Admin: 06/22/20 15:07 Dose: 100 mls/hr Documented by: [id number] Discontinued Medications Dexamethasone (Dexamethasone Sod Inj 10 Mg/Ml Vial) 10 mg IV NOW ONE Stop: 06/22/20 12:43 Last Admin: 06/22/20 13:22 Dose: 10 mg Documented by: [id number] Ioversol (Optiray 320 125ml) 118 ml IV ONCE ONE Stop: 06/22/20 13:43 Last Admin: 06/22/20 13:42 Dose: 118 ml Documented by: [id number] Potassium Chloride (Potassium Chloride 10 Meq Tabcr) 20 meq PO NOW STA Stop: 06/22/20 14:20 Last Admin: 06/22/20 15:07 Dose: 20 meq Documented by: [id number] Imaging Data Radiologist's Impression: [facility], [phone] CT Scan Report Patient: CALOS LUCAS CAdimelda Date: 06/22/20MR#: [id number]: [address] [facility]ct [facility]:[id number]: [address]Birth Date: [place] Zip: [place], [place] [address]Oxc: 69Location: EDSex: MRoom/Bed:Att Phy:Diagnosis: covid+Stacey Phy: Jb Coronel, III, MDService Date: 06/22/20Fam Phy:Interpreting Phy: Marcelo UrbanAdmit Phy: Ordering Phy: Leonid Wilhelm DO cc: ~ CT angio head w con, CT angio neck with con CLINICAL HISTORY: 69 years-old Male with Stroke Like Symptoms. Acute strokelike symptoms. History of prior right-sided carotid endarterectomy. COMPARISON STUDY: Head CT of same day, CTA head and neck 04/20/2019 TECHNIQUE: Following the IV administration of 118 cc of Optiray 320, CT angiogram of the head and neck was performed from the aortic arch to the skull apex. Images are reviewed in the axial, sagittal, and coronal planes. 3-D MIPS images are created and assessed. IV contrast was administered without complication. All measurements were obtained according to NASCET criteria. A dose lowering technique was utilized adhering to the principles of ALARA. CT DOSE: 1135.13 mGycm FINDINGS: Mixed plaque of the thoracic aortic arch. Patency of the innominate and imaged proximal subclavian arteries. The common carotid arteries are patent. Postoperative changes of prior right carotid endarterectomy. There is mild luminal narrowing at the right carotid bulb. The previously noted dissection flap is no longer appreciated. The right internal carotid artery is patent. Moderate mixed plaque of the left carotid bulb and proximal left ICA is redemonstrated which again results in approximately 60% luminal narrowing of the proximal cervical segment left ICA, image 146 series 4 which is unchanged. Calcified plaque of the cavernous and supraclinoid segments without significant stenosis. The middle and anterior cerebral arteries are patent. The vertebral arteries are codominant and widely patent. Moderate narrowing at the origin of the left vertebral artery is unchanged. The basilar and posterior cerebral arteries are patent. No aneurysm, dissection, high-grade stenosis or proximal branch occlusion. Cerebral venous sinuses are patent. There is no abnormal intracranial enhancement identified. Multifocal peripheral predominant groundglass and consolidative opacities are noted on the abstractor localizer images and also within the lung apices. No pneumothorax. Numerous pathologic paratracheal lymph nodes are redemonstrated measuring up to 1.6 cm in short axis which appear unchanged from comparison. Unremarkable thyroid. No acute fracture. Degenerative changes of the spine. IMPRESSION: 1. CTA of the head and neck demonstrates no acute abnormality. 2. Prior right carotid endarterectomy. The previously questioned short segment dissection of the right carotid bulb is no longer appreciated. 3. Atheromatous plaque of the left carotid bulb and proximal left ICA is unchanged again resulting in approximately 60% luminal narrowing of the proximal cervical segment left ICA. 4. Biapical pulmonary opacities are suggestive of multifocal likely viral pneumonia. 5. Unchanged pathologic lymph nodes of the upper mediastinum. ACT 112: Negative or not required by law. The above report was generated using voice recognition software. It may contain grammatical, syntax or spelling errors. Electronically signed by: Todd Urban M.D. 06/22/2020 2:04 PM Dictated: 06/22/20 1350Transcribed: 06/22/20 1350 Patient: CALOS LUCAS CAdmit Date: 06/22/20MR#: [id number][facility] [address] [facility][id number]: [address]Birth Date: [address] [place] [address] Zip: [place], [place] [address]Waf: 69Location: EDSex: MRoom/Bed:Att Phy:Diagnosis: covid+Stacey Phy: Jb Coronel III, MDService Date: 06/22/20Fam Phy:Interpreting Phy: Marcelo UrbanAdmit Phy: Ordering Phy: Leonid Wilhelm DO cc: ~ CT head/brain wo con CLINICAL HISTORY: 69 years-old Male with Stroke Like Symptoms. Acute strokelike symptoms. COVID Positive. TECHNIQUE: Multiple axial CT images of the head were obtained without contrast. A dose lowering technique was utilized adhering to the principles of ALARA. CT DOSE: 800.40 mGycm COMPARISON: Head CT 04/20/2019 FINDINGS: No acute intracranial hemorrhage, midline shift, intracranial mass, hydrocephalus, territorial ischemia or abnormal extra-axial collection. Mild age-related involutional changes. Patchy white matter hypodensities redemonstrated suggestive of chronic microvascular ischemic disease. Cerebral vascular calcifications. The calvarium is intact. The paranasal sinuses, mastoid air cells, and middle ear cavities are clear. IMPRESSION: No acute intracranial abnormality. ACT 112: Negative or not required by law. The above report was generated using voice recognition software. It may contain grammatical, syntax or spelling errors. Electronically signed by: Todd Urban M.D. 06/22/2020 1:47 PM Dictated: 06/22/20 1344Transcribed: 06/22/20 1344 [facility], [phone] XRay Report Patient: CALOS LUCAS CAdmit Date: 06/22/20MR#: [id number]: [address] [facility] ID:[id number]: [address]Birth Date: [place] Zip: [place], [place] [address]Pst: 69Location: EDSex: MRoom/Bed:Att Phy:Diagnosis: covid+Stacey Phy: Jb Coronel, III, MDService Date: 06/22/20Fa Phy:Interpreting Phy: Christopher Sears MDAdmit Phy: Ordering Phy: Leonid Wilhelm DO cc: ~ XR chest 1V portable CLINICAL HISTORY: Stroke Like Symptoms COMPARISON STUDY: April 20, 2019 FINDINGS: The heart is normal in size. There are bilateral interstitial pulmo nary airspace opacities with a peripheral distribution. Clinical correlation with regards Covid 19 pneumonia is recommended. There are no significant pleural effusions[ IMPRESSION: 1. Bilateral pulmonary opacities with a peripheral distribution. The findings are suspicious for a multifocal pneumonia. Clinical correlation with Covid 19 serology recommended. ACT 112: Negative or not required by law. Electronically signed by: Christopher Sears M.D. 06/22/2020 11:44 AM Dictated: 06/22/20 114Transcribed: 06/22/201141 Discharge Plan Visit Data Chief Complaint: Illness Stated Complaint: covid+ ED Provider: Leonid Wilhelm Discharge Problem: Pneumonia due to 2019 novel coronavirus, Hypoxia, Decreased vision of right eye, Hypokalemia Patient Disposition: Being Evaluated by Hospitalist Condition: Good Forms Stand Alone Forms: My [facility] [employer] Prescriptions Prescriptions: No Action atorvastatin 40 mg tablet 40 mg PO DAILY Qty: 90 RF: 3 clopidogrel 75 mg tablet 75 mg PO QAM Qty: 90 RF: 3 hydrochlorothiazide 25 mg tablet 25 mg PO DAILY Qty: 90 RF: 3 losartan 50 mg tablet 50 mg PO DAILY Qty: 90 RF: 3 metformin 500 mg tablet 500 mg PO BID Qty: 180 RF: 3 fluticasone propion-salmeterol 100-50 mcg/dose blister with device 1 inh inhalation BID Qty: 60 RF: 5 (DME) OneTouch Ultra Blue Test Strip Strip See Rx Instructions .ROUTE .MEDSUPPLY Qty: 100 RF: 3 folic acid 1 mg tablet 2.5 mg PO QAM 90 Days Qty: 225 RF: 3 escitalopram oxalate 20 mg tablet 10 mg PO DAILY RF: 0 Referrals Referrals: Jb Coronel III, MD [Primary Care Provider] -
[2020-06-22 12:22] LABS: Hematocrit (blood only) 41.2 % (42-52); Hemoglobin 15.6 g/dL (14.0-18.0); Mean Corpuscular Hemoglobin 32.5 pg (25-34); Mean Corpuscular Hgb Conc 37.9 g/dL (32-36); Mean Corpuscular Volume 85.8 fL (80-100); RDW Coefficient of Variation 13.2 % (11.5-14.5); RDW Standard Deviation 41.7 fL (36.4-46.3)
[2020-06-22 12:23] LABS: Basophils # (auto) 0.04 K/uL (0-0.2); Basophils % (auto) 0.4 %; Eosinophils # (auto) 0.18 K/uL (0-0.5); Eosinophils % (auto) 1.7 %; Immature Granulocytes # (auto) 0.06 K/uL (0.00-0.02); Immature Granulocytes % (auto) 0.6 %; Lymphocytes # (auto) 1.47 K/uL (1.2-3.4); Lymphocytes % (auto) 14.3 %; Mean Platelet Volume 11.3 fL (7.4-10.4); Monocytes # (auto) 1.11 K/uL (0.11-0.59); Monocytes % (auto) 10.8 %; Neutrophils # (auto) 7.44 K/uL (1.4-6.5); Neutrophils % (auto) 72.2 %; Platelet Count 451 K/uL (130-400)
[2020-06-22 12:28] LABS: Base Excess VBG 1.1 mEq/L; Oxygen Saturation VBG 86.7 %; pH VBG 7.49 (7.36-7.41)
[2020-06-22 12:37] LABS: Partial Thromboplastin Time 26.4 Seconds (21.0-31.0); Prothrombin Time 10.5 Seconds (9.0-12.0)
[2020-06-22 12:39] LABS: Alanine Aminotransferase 127 U/L (12-78); Albumin Level 2.2 gm/dl (3.4-5.0); Aspartate Aminotransferase 117 U/L (15-37); BUN Creatinine Ratio 21.6 (10-20); Blood Urea Nitrogen 29 mg/dl (7-18); Calcium 9.1 mg/dl (8.5-10.1); Carbon Dioxide 23 mmol/L (21-32); Chloride 98 mmol/L (98-107); Creatinine Clr Calc Pharmacy 61.3 ml/min; Est GFR (African American) 62.6; Est GFR (Non-African American) 54.1; Glucose 146 mg/dl (70-99); Magnesium 2.3 mg/dl (1.8-2.4); Potassium 2.6 mmol/L (3.5-5.1); Sodium 132 mmol/L (136-145)
[2020-06-22] MEDS ORDERED: DEXAMETHASONE SOD INJ 10 MG/ML VIAL IV ONE (12:42)
[2020-06-22 12:44] LABS: Albumin Globulin Ratio 0.4 (0.9-2); Alkaline Phosphatase 130 U/L (45-117); Bilirubin,Total 1.3 mg/dl (0.2-1); Globulin 5.6 gm/dl (2.5-4.0); Total Protein 7.8 gm/dl (6.4-8.2); Troponin I < 0.015 ng/ml (0-0.045)
[2020-06-22] MEDS ORDERED: OPTIRAY 320 125ml IV ONE (13:42)
--- NOTE | 2020-06-22 13:48 | CT Scan Report ---
CT head/brain wo con CLINICAL HISTORY: 69 years-old Male with Stroke Like Symptoms. Acute strokelike symptoms. COVID Posi tive. TECHNIQUE: Multiple axial CT images of the head were obtained without contrast. A dose lowering tech nique was utilized adhering to the principles of ALARA. CT DOSE: 800.40 mGycm COMPARISON: Head CT 04/20/2019 FINDINGS: No acute intracranial hemorrhage, midline shift, intracranial mass, hydrocephalus, territorial ischem ia or abnormal extra-axial collection. Mild age-related involutional changes. Patchy white matter hyp odensities redemonstrated suggestive of chronic microvascular ischemic disease. Cerebral vascular maxine cifications. The calvarium is intact. The paranasal sinuses, mastoid air cells, and middle ear cavities are clear . IMPRESSION: No acute intracranial abnormality. ACT 112: Negative or not required by law. The above report was generated using voice recognition software. It may contain grammatical, syntax o r spelling errors. Electronically signed by: Todd Urban M.D. 06/22/2020 1:47 PM
--- NOTE | 2020-06-22 14:05 | CT Scan Report ---
CT angio head w con, CT angio neck with con CLINICAL HISTORY: 69 years-old Male with Stroke Like Symptoms. Acute strokelike symptoms. History of prior right-sided carotid endarterectomy. COMPARISON STUDY: Head CT of same day, CTA head and neck 04/20/2019 TECHNIQUE: Following the IV administration of 118 cc of Optiray 320, CT angiogram of the head and nec k was performed from the aortic arch to the skull apex. Images are reviewed in the axial, sagittal, a nd coronal planes. 3-D MIPS images are created and assessed. IV contrast was administered without com plication. All measurements were obtained according to NASCET criteria. A dose lowering technique was utilized adhering to the principles of ALARA. CT DOSE: 1135.13 mGycm FINDINGS: Mixed plaque of the thoracic aortic arch. Patency of the innominate and imaged proximal subclavian ar teries. The common carotid arteries are patent. Postoperative changes of prior right carotid endarter ectomy. There is mild luminal narrowing at the right carotid bulb. The previously noted dissection fl ap is no longer appreciated. The right internal carotid artery is patent. Moderate mixed plaque of th e left carotid bulb and proximal left ICA is redemonstrated which again results in approximately 60% luminal narrowing of the proximal cervical segment left ICA, image 146 series 4 which is unchanged. C alcified plaque of the cavernous and supraclinoid segments without significant stenosis. The middle a nd anterior cerebral arteries are patent. The vertebral arteries are codominant and widely patent. Mo derate narrowing at the origin of the left vertebral artery is unchanged. The basilar and posterior c erebral arteries are patent. No aneurysm, dissection, high-grade stenosis or proximal branch occlusio n. Cerebral venous sinuses are patent. There is no abnormal intracranial enhancement identified. Multifocal peripheral predominant groundglass and consolidative opacities are noted on the doorperson or luggage porter loca lizer images and also within the lung apices. No pneumothorax. Numerous pathologic paratracheal lymph nodes are redemonstrated measuring up to 1.6 cm in short axis which appear unchanged from comparison . Unremarkable thyroid. No acute fracture. Degenerative changes of the spine. IMPRESSION: 1. CTA of the head and neck demonstrates no acute abnormality. 2. Prior right carotid endarterectomy. The previously questioned short segment dissection of the righ t carotid bulb is no longer appreciated. 3. Atheromatous plaque of the left carotid bulb and proximal left ICA is unchanged again resulting in approximately 60% luminal narrowing of the proximal cervical segment left ICA. 4. Biapical pulmonary opacities are suggestive of multifocal likely viral pneumonia. 5. Unchanged pathologic lymph nodes of the upper mediastinum. ACT 112: Negative or not required by law. The above report was generated using voice recognition software. It may contain grammatical, syntax o r spelling errors. Electronically signed by: Todd Urban M.D. 06/22/2020 2:04 PM
[2020-06-22] MEDS ORDERED: POTASSIUM CHLORIDE 10 MEQ TABCR PO STA (14:19)
[2020-06-22] MEDS: POTASSIUM CHLORIDE / WTR 10 MEQ/100 ML PLCT IV SCH ×2 (15:07→17:03)
--- NOTE | 2020-06-22 15:56 | History & Physical Report ---
Date of Service June 22, 2020 Assessment & Plan (1) COVID-19: Stable not hypoxic on room air presently, but apparently was initially in the ER - Entering second phase of his illness at day 12 - Inflammatory markers elevated - Will place on high dose VTE prophylaxis related to vascular disease and elevated markers. - Currently no recommended treatments for his COVID- follow -He did receive 1 dose of IV dexamethasone in the ER but this will not be continued as he is not hypoxic (2) Decreased vision of right eye: Monocular painless hemianopsia vision loss of the right eye - Patient had just followed up with his smoke chaser () and had his eyes dilated and evaluated with normal exam reported - CTA of the head and neck show no patholgy for this pattern of vision loss this may be related to small vessel disease and increase in covid inflammatory markers and increase in platelet count. - Stroke work up was started in the EMD--> continue with MRI of brain and neurology consult (3) Hyperlipidemia: Lipids check in morning - patient already on high dose statin (4) Stroke-like symptoms: As above with vision change - Will add on aspirin in the morning along with plavix, until seen by neurology-- appreciate recs - Followed by Lachelle neurolgoy, follow up in January reports no TIA symptoms and doing well. He was educated on the stroke/tia symptoms and report to ER at that time, which patient did - MRI tonight (5) Carotid artery stenosis: Left carotid stenosis 60% and right CEA performed 2019. Followed with Vascular surgery - remains on ARB and Statin and Plavis - No acute needs at this time - Lipids pending as above - HGB A1C 7.1% recheck in morning (6) Hypokalemia: K- 2.6 QT mildly prolonged at .45 Magnesium is normal - replete K done in EMD with oral and IV- 40 meq - 40 additional MEQ tonight -Could be from HCTZ Follow BMP (7) Diabetes mellitus type 2, uncontrolled: Glycemic control if >200. Pharmacy consulted - HGB 7.1 in January, recheck in morning (8) Hyperhomocysteinemia: History of such as per stroke neurology notes Continue home folic acid 2.5 mg once daily (9) Hyponatremia: Sodium mildly low on admission, could be from mild dehydration due to recent Covid illness Follow BMP Encourage p.o. intake (10) Elevated liver transaminase level: Total bilirubin mildly elevated 1.3, AST, ALT, and alkaline phosphatase all elevated Likely secondary to Covid-19 viral infection No abdominal pains Follow LFTs in the morning Okay to continue atorvastatin for now (11) Mediastinal lymphadenopathy: Noted on CT scan of the neck here Review of stroke neurology notes shows that this was detected on scans at [facility] as well and there are plans for repeat CT of the chest in 11/2020 Thought to be reactive as per their notes (12) COPD (chronic obstructive pulmonary disease): No acute needs - Continue Fluticasone 100/ [id number] - goal spo2 88-92% (13) DVT prophylaxis: Lovenox Disposition-admit to PCU History of Present Illness Primary Care Provider: Jb Coronel MD 69 YOM history of CVA, TIA, COPD, DMII, HTN, CEA, Carotid stenosis, HLD. Who comes to the ER today for complaints of "puzzle piece vision". The patient is COVID (+) and is by his accounts ~2 weeks into his course of his illness and has been managable at home. He did get a COVID test last week at an urgent care, test was repeated today in the ER and remains COVID (+). The patient endorses that this vision effect is the same that he was having post CEA and CVA in MAR 2019- and when they "brought his blood pressure down it went back to normal" and he has not had vision changes since. His vision change is painless, monocular to the right eye, and nasal hemianopsia. He is on high dose statin and monotherapy with Plavix. The patient is currently at his baseline BP and hemodynamics. He had a CT of the head and CTA of the head and neck in the EMD. The patient is not hypoxic on room air. The patient's blood work is notable for an increase in his LFT's, platelet count to 407 which he is normally 180-170 and elevation in CRP, ESR his fibrinogen and LDH are normal. Patient will be admitted for further workup, MRI of the head and symptom control. Allergies Allergy/AdvReac Type Severity Reaction Status Date / Time No Known Allergies Allergy Unverified 06/22/20 12:06 Home Medications Medication Instructions Recorded Confirmed Type atorvastatin 40 mg tablet 40 mg PO DAILY #90 tab 04/18/20 06/22/20 Rx clopidogrel 75 mg tablet 75 mg PO QAM #90 tab 04/18/20 06/22/20 Rx hydrochlorothiazide 25 mg tablet 25 mg PO DAILY #90 tab 04/18/20 06/22/20 Rx losartan 50 mg tablet 50 mg PO DAILY #90 tab 04/18/20 06/22/20 Rx metformin 500 mg tablet 500 mg PO BID #180 tab 04/18/20 06/22/20 Rx fluticasone 100 mcg-salmeterol 50 1 inh INHALATION BID #60 ea 04/20/20 06/22/20 Rx mcg/dose blistr powdr for inhalation blood sugar diagnostic #100 ea 05/23/20 Rx folic acid 1 mg tablet 2.5 mg PO QAM 90 Days #225 tab 06/13/20 06/22/20 Rx escitalopram oxalate 10 mg PO DAILY 06/22/20 06/22/20 History Past Med/Surg History Medical History (Updated 06/22/20 @ 23:17 by Constanza Dorantes MD) Carotid artery 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 Rock Transient ischemic attack Surgical History History of cholecystectomy History of right-sided carotid endarterectomy (04/2019) [facility] [place], Dr Arthur Family History Father Myocardial infarction Father COPD (chronic obstructive pulmonary disease) Coronary heart disease Diabetes Family/Other Stroke FH: deafness or hearing loss Mother Stroke Denies family history of Ovarian cancer Prostate cancer Breast cancer Colorectal cancer Social History Smoking Status: Former smoker Tobacco Type: Cigarettes Age Started Using Tobacco: 16; packs per day: 0.5; Years Smoked: 52; Cigarettes Per Day: 2pk a day; Second Hand Exposure: Yes; Do You Dip or Chew Tobacco: No; Tobacco Cessation Education Requested by Patient: No Hx Alcohol Use: No Hx Substance Use: No Preferred Language: [place] Communication Ability: Effective Visual Impairment: No Limitations Hearing Ability: Use of Hearing Aid Thermite Welder Required: No Beliefs That Will Affect Care: None marital status: Current Living Situation: Spouse current occupational status: employed Other Information That Helps Us Care for You: No Feels Safe at Home: Yes Safety Concerns: Feels Safe At This Time Childhood Exposure to Second-Hand Smoke: Yes Dental Care, Regularly: Yes Physical Activity Frequency: 1-2 Times per Week Physical Activity Frequency Comment: walks, 15 mintues Seatbelt Use: always Sunscreen Use: No Assistive Devices: Glasses Review of Systems Review of Systems: REVIEW OF SYSTEMS: Constitutional: (+) fever, sweats or chills Eyes: (+) no worsening right eye vision with field cut, no diplopia, pain ENT: (+) difficulty hearing, no trouble swallowing Respiratory: (+) dyspnea on exertion, No cough, sputum, dyspnea at rest Cardiovascular: No chest pain, tightness or palpitations Abdomen: No pain, nausea, vomiting, diarrhea or constipation Musculoskeletal: No joint pain, calf pain, swelling Neurologic: No weakness, numbness/tingling, or balance problems Psychiatric: No anxiety or depression Skin: No rash or itch Physical Exam Physical Exam: PHYSICAL EXAM: General: awake, alert, no apparent distress Head: Normocephalic, atraumatic ENT: no eye pain, no pharyngeal exudate, mucous membranes moist Neuro: PERRLA, EOMI, AAO x 3, speech clear and appropriate, strength intact bilaterally 5/5, sensation intact and equal all extremities and no pronator drift, no ataxia. - With left eye covered patient visual field is cut on the right medial filed superior and inferiorly as well. Right lateral peripheral vision is intact. Left eye has no lag, and EOM and vision intact. No ptsosis or facial droop noted. Chest: equal rise and fall of the chest, no accessory muscle use, no heaves or thrills, Clear to auscultation, on room air, Cardiac: Regular rate and rhythm, telemetry reviewed, skin warm dry, cap refill <3 seconds, peripheral pulses +2 no JVD, no murmur, no JVD, no edema GI: NABS x 4 quadrants, soft, nontender to palpation, no rebound, guarding or tenderness : Spontaneously voiding, no pain, no CVA tenderness, Extremities: Normal inspection, no peripheral edema or erythema, calfs nontender to palpation Psych: Normal mood and affect Skin: no rash or erythema Results & Data Results & Data ([facility]) Vital Signs (Past 12 Hours) Vital Signs Temp Pulse Pulse Resp BP BP Pulse Ox 06/22/20 15:01 60 127/62 93 06/22/20 14:46 113/60 94 06/22/20 14:00 60 16 113/60 92 06/22/20 13:26 36.6 C 64 21 110/67 90 06/22/20 12:25 92 06/22/20 12:15 71 20 116/68 89 L 06/22/20 11:03 35.5 C L 80 16 88 L Laboratory Results Abnormal lab results 06/22/20 06/22/20 06/22/20 Range/Units 12:04 12:04 12:04 Hct 41.2 L (42-52) % MCHC 37.9 H (32-36) g/dL Plt Count 451 H (130-400) K/uL MPV 11.3 H (7.4-10.4) fL Neut # (Auto) 7.44 H (1.4-6.5) K/uL [place] # (Auto) 1.11 H (0.11-0.59) K/uL Immature Gran # (Auto) 0.06 H (0.00-0.02) K/uL ESR (0-14) mm/hr VBG pH 7.49 H (7.36-7.41) VBG pCO2 32 L (38-50) mmHg Sodium 132 L (136-145) mmol/L Potassium 2.6 L (3.5-5.1) mmol/L BUN 29 H (7-18) mg/dl BUN/Creatinine Ratio 21.6 H (10-20) Glucose 146 H (70-99) mg/dl Ferritin (8-388) ng/ml Total Bilirubin 1.3 H (0.2-1) mg/dl AST 117 H (15-37) U/L ALT 127 H (12-78) U/L Alkaline Phosphatase 130 H (45-117) U/L C-Reactive Protein (0-0.29) mg/dl Albumin 2.2 L (3.4-5.0) gm/dl Globulin 5.6 H (2.5-4.0) gm/dl Albumin/Globulin Ratio 0.4 L (0.9-2) SARS-CoV-2 (PCR) (Negative) 06/22/20 06/22/20 06/22/20 Range/Units 12:04 12:04 14:54 Hct (42-52) % MCHC (32-36) g/dL Plt Count (130-400) K/uL MPV (7.4-10.4) fL Neut # (Auto) (1.4-6.5) K/uL [place] # (Auto) (0.11-0.59) K/uL Immature Gran # (Auto) (0.00-0.02) K/uL ESR 72 H (0-14) mm/hr VBG pH (7.36-7.41) VBG pCO2 (38-50) mmHg Sodium (136-145) mmol/L Potassium (3.5-5.1) mmol/L BUN (7-18) mg/dl BUN/Creatinine Ratio (10-20) Glucose (70-99) mg/dl Ferritin (8-388) ng/ml Total Bilirubin (0.2-1) mg/dl AST (15-37) U/L ALT (12-78) U/L Alkaline Phosphatase (45-117) U/L C-Reactive Protein 15.10 H (0-0.29) mg/dl Albumin (3.4-5.0) gm/dl Globulin (2.5-4.0) gm/dl Albumin/Globulin Ratio (0.9-2) SARS-CoV-2 (PCR) POSITIVE A* (Negative) 06/22/20 Range/Units 16:08 Hct (42-52) % MCHC (32-36) g/dL Plt Count (130-400) K/uL MPV (7.4-10.4) fL Neut # (Auto) (1.4-6.5) K/uL [place] # (Auto) (0.11-0.59) K/uL Immature Gran # (Auto) (0.00-0.02) K/uL ESR (0-14) mm/hr VBG pH (7.36-7.41) VBG pCO2 (38-50) mmHg Sodium (136-145) mmol/L Potassium (3.5-5.1) mmol/L BUN (7-18) mg/dl BUN/Creatinine Ratio (10-20) Glucose (70-99) mg/dl Ferritin 503.0 H (8-388) ng/ml Total Bilirubin (0.2-1) mg/dl AST (15-37) U/L ALT (12-78) U/L Alkaline Phosphatase (45-117) U/L C-Reactive Protein (0-0.29) mg/dl Albumin (3.4-5.0) gm/dl Globulin (2.5-4.0) gm/dl Albumin/Globulin Ratio (0.9-2) SARS-CoV-2 (PCR) (Negative) Diagnostic Findings CT angio head w con, CT angio neck with con CLINICAL HISTORY: 69 years-old Male with Stroke Like Symptoms. Acute strokelike symptoms. History of prior right-sided carotid endarterectomy. COMPARISON STUDY: Head CT of same day, CTA head and neck 04/20/2019 TECHNIQUE: Following the IV administration of 118 cc of Optiray 320, CT angiogra m of the head and neck was performed from the aortic arch to the skull apex. Images are reviewed in the axial, sagittal, and coronal planes. 3-D MIPS images are created and assessed. IV contrast was administered without complication. All measurements were obtained according to NASCET criteria. A dose lowering technique was utilized adhering to the principles of ALARA. CT DOSE: 1135.13 mGycm FINDINGS: Mixed plaque of the thoracic aortic arch. Patency of the innominate and imaged proximal subclavian arteries. The common carotid arteries are patent. Postoperative changes of prior right carotid endarterectomy. There is mild luminal narrowing at the right carotid bulb. The previously noted dissection flap is no longer appreciated. The right internal carotid artery is patent. Moderate mixed plaque of the left carotid bulb and proximal left ICA is redemonstrated which again results in approximately 60% luminal narrowing of the proximal cervical segment left ICA, image 146 series 4 which is unchanged. Calcified plaque of the cavernous and supraclinoid segments without significant stenosis. The middle and anterior cerebral arteries are patent. The vertebral arteries are codominant and widely patent. Moderate narrowing at the origin of the left vertebral artery is unchanged. The basilar and posterior cerebral arteries are patent. No aneurysm, dissection, high-grade stenosis or proximal branch occlusion. Cerebral venous sinuses are patent. There is no abnormal intracranial enhancement identified. Multifocal peripheral predominant groundglass and consolidative opacities are noted on the pin ticket machine operator localizer images and also within the lung apices. No pneumothorax. Numerous pathologic paratracheal lymph nodes are redemonstrated measuring up to 1.6 cm in short axis which appear unchanged from comparison. Unremarkable thyroid. No acute fracture. Degenerative changes of the spine. IMPRESSION: 1. CTA of the head and neck demonstrates no acute abnormality. 2. Prior right carotid endarterectomy. The previously questioned short segment dissection of the right carotid bulb is no longer appreciated. 3. Atheromatous plaque of the left carotid bulb and proximal left ICA is unchanged again resulting in approximately 60% luminal narrowing of the proximal cervical segment left ICA. 4. Biapical pulmonary opacities are suggestive of multifocal likely viral pneumonia. 5. Unchanged pathologic lymph nodes of the upper mediastinum. CT angio head w con, CT angio neck with con CLINICAL HISTORY: 69 years-old Male with Stroke Like Symptoms. Acute strokelike symptoms. History of prior right-sided carotid endarterectomy. COMPARISON STUDY: Head CT of same day, CTA head and neck 04/20/2019 CT head/brain wo con CLINICAL HISTORY: 69 years-old Male with Stroke Like Symptoms. Acute strokelike symptoms. COVID Positive. TECHNIQUE: Multiple axial CT images of the head were obtained without contrast. A dose lowering technique was utilized adhering to the principles of ALARA. CT DOSE: 800.40 mGycm COMPARISON: Head CT 04/20/2019 FINDINGS: No acute intracranial hemorrhage, midline shift, intracranial mass, hydrocephalus, territorial ischemia or abnormal extra-axial collection. Mild age-related involutional changes. Patchy white matter hypodensities redemonstrated suggestive of chronic microvascular ischemic disease. Cerebral vascular calcifications. The calvarium is intact. The paranasal sinuses, mastoid air cells, and middle ear cavities are clear. IMPRESSION: No acute intracranial abnormality. XR chest 1V portable CLINICAL HISTORY: Stroke Like Symptoms COMPARISON STUDY: April 20, 2019 FINDINGS: The heart is normal in size. There are bilateral interstitial pulmonary airspace opacities with a peripheral distribution. Clinical correlation with regards Covid 19 pneumonia is recommended. There are no significant pleural effusions[ IMPRESSION: 1. Bilateral pulmonary opacities with a peripheral distribution. The findings are suspicious for a multifocal pneumonia. Clinical correlation with Covid 19 serology recommended. Medications Administered Discontinued Medications Dexamethasone (Dexamethasone Sod Inj 10 Mg/Ml Vial) 10 mg IV NOW ONE Stop: 06/22/20 12:43 Last Admin: 06/22/20 13:22 Dose: 10 mg Documented by: [id number] Potassium Chloride (K Fede / Wtr) 10 meq in 100 mls @ 100 mls/hr IV Q1H MELI Stop: 06/22/20 16:29 Last Admin: 06/22/20 17:03 Dose: 100 mls/hr Documented by: [id number] Infusion: 06/22/20 16:07 Dose: 100 mls/hr Documented by: [id number] Admin: 06/22/20 15:07 Dose: 100 mls/hr Documented by: [id number] Ioversol (Optiray 320 125ml) 118 ml IV ONCE ONE Stop: 06/22/20 13:43 Last Admin: 06/22/20 13:42 Dose: 118 ml Documented by: [id number] Potassium Chloride (Potassium Chloride 10 Meq Tabcr) 20 meq PO NOW STA Stop: 06/22/20 14:20 Last Admin: 06/22/20 15:07 Dose: 20 meq Documented by: [id number] ECG Additional Comments: Normal sinus rhythm with sinus arrhythmia Prolonged QT Code Status & VTE Plan Code Status FULL CODE VTE: SCD's Lovenox 0.5mg/kg BID VTE Prophylaxis Plan VTE Prophylaxis will be ordered: Yes Supervising Physician Co-Signing Physician Notes PRACTICING MD ANESTHESIOLOGIST Supervision note: I have personally seen and examined the patient and discussed and verified the gonsalez points of the history and physical along with the plan with GUERO Shah with the following exceptions and/or additions: This patient is a 69-year-old male with a history of CIS status post right CEA, CVA/TIA/HTN, DM 2, COPD and current smoker, hyperlipidemia, hyper homocystinemia, and depression, who presents to the ER with 24 hours of vision loss in the right eye. He can see out of the periphery of his right eye to the right but not in the nasal portion. He denies any problems with vision from the left eye. He denies headache or eye pain. He denies any numbness or tingling or focal weakness anywhere else. He recently has had Covid-19 for the last 12 days with mild to moderate symptoms that have been managed at home. He initially was mildly hypoxic on arrival but then was taken off of oxygen and has been fine since that time. In the ER, he was found to be hyponatremic, hypokalemic, with mildly elevated LFTs all thought to be related to dehydration and Covid-19. A CT of the head and CT angiogram of the head and neck were completed which showed persistent left moderate vertebral artery stenosis and left ICA 60% stenosis which is unchanged from previous. He has been admitted for stroke work-up. History and ROS reviewed as above Vitals reviewed Gen: AAOx3, NAD HEENT: Anicteric sclerae, EOMI, PERRLA, normal conjunctiva CV: RRR no mgr nl S1S2 Pulm: CTAB no wcr Abd: +BS soft NT ND no masses or hernias Ext: No edema, 2+ DP pulses Skin: No rashes, warm/dry Neuro: Cranial nerves II through XII intact, with visual field deficit only in the nasal visual field of the right eye and a hemianopsia pattern, with covering of right eye, he had normal vision throughout all quadrants of left field of vision, unable to see funduscopic exam, full strength throughout upper and lower extremities, sensation intact light touch throughout, DTRs normal, gait not tested Laboratory values reviewed Imaging reviewed ECG reviewed and with normal sinus rhythm, mildly prolonged QTC, otherwise normal 69-year-old male with history noted as above, here with right eye nasal visual field deficit in the setting of Covid-19 illness -It seems given that the visual field deficit is only in the right eye so this is not likely stroke but given his significant history and possibility that there is a more subtle visual field deficit in the left eye, will pursue stroke work-up with MRI of the brain -Otherwise could be perhaps central retinal vein occlusion or some sort of ischemic optic neuritis-would need ophthalmology follow-up as an outpatient. He certainly has risk factors for stroke and clotting disorders given hyperhomocystinemia as well as prior CVA, SOLITARIO, and vertebral artery stenosis on the left -Adding aspirin to Plavix for now, continue statin and blood pressure control -Replacing electrolytes as above -As per his Covid, seems to be a mild case-he did have some initial hypoxia which is now resolved and he did receive 1 dose of dexamethasone. Will hold for now but if pulse ox drops below 94% again, would restart dexamethasone tomorrow. Follow LFTs but suspect they are elevated due to Covid PG Care Time/CCT Total # of Minutes Spent Total Time Spent with Patient: Total time spent is greater than 50% in coordination of care (as documented) at patient's floor/unit and/or counseling patient: Coding Level of Care Code 79489 Initial Inpt Care Lvl 3 Diagnoses COVID-19 U07.1 Decreased vision of right eye H54.61 Hyperlipidemia E78.5 Hyperlipidemia type: unspecified Stroke-like symptoms R29.90 Carotid artery stenosis I65.22 Laterality: left Hypokalemia E87.6 Diabetes mellitus type 2, uncontrolled E11.65 Glycemic state: with hyperglycemia Hyperhomocysteinemia E72.11 Hyponatremia E87.1 Elevated liver transaminase level R74.01 Mediastinal lymphadenopathy R59.0 COPD (chronic obstructive pulmonary disease) J44.9 COPD type: unspecified COPD DVT prophylaxis Z29.9 (1) Carotid artery stenosis Laterality: left Qualified Code(s): I65.22 - Occlusion and stenosis of left carotid artery (2) Hyperlipidemia Hyperlipidemia type: unspecified Qualified Code(s): E78.5 - Hyperlipidemia, unspecified (3) Diabetes mellitus type 2, uncontrolled Glycemic state: with hyperglycemia Qualified Code(s): E11.65 - Type 2 diabetes mellitus with hyperglycemia (4) COPD (chronic obstructive pulmonary disease) COPD type: unspecified COPD Qualified Code(s): J44.9 - Chronic obstructive pulmonary disease, unspecified
[2020-06-22 16:01] LABS: Influenza A virus by PCR Negative (Neg); Influenza B virus by PCR Negative (Neg); RSV by PCR Negative (Neg)
[2020-06-22 16:12] LABS: SARS CoV2 RNA(COVID-19) InHosp POSITIVE (Negative)
[2020-06-22 16:32] LABS: Fibrinogen 257 mg/dl (184-400)
--- NOTE | 2020-06-22 16:55 | Electrocardiogram Report ---
Test Reason : Blood Pressure : / mmHG Vent. Rate : 070 BPM Atrial Rate : 070 BPM P-R Int : 172 ms QRS Dur : 100 ms QT Int : 452 ms P-R-T Axes : 080 064 050 degrees QTc Int : 488 ms Normal sinus rhythm with sinus arrhythmia Prolonged QT Abnormal ECG When compared with ECG of 20-APR-2019 13:51, Vent. rate has increased BY 24 BPM QT has lengthened Confirmed by Juan Espana ([id number]) on 06/22/2020 4:55:21 PM Referred By: Confirmed By:Juan Espana
[2020-06-22] MEDS ORDERED: ONDANSETRON INJ 2 MG/ML 2 ML VIAL IV PRN (18:32)
[2020-06-22] MEDS ORDERED: PHARMACIST DISCHARGE MED REC CONSULT PRN (18:32)
[2020-06-22] MEDS ORDERED: ACETAMINOPHEN 325 MG TAB PO PRN (18:32)
[2020-06-22] MEDS ORDERED: POLYETHYLENE (MIRALAX) 17 GM PACK PO PRN (18:32)
[2020-06-22] MEDS ORDERED: PHARMACY GLYCEMIC MGMT CONSULT PRN (19:20)
[2020-06-22] MEDS ORDERED: GLUCOSE 40% GEL 15 GM TUBE PO PRN (19:30)
[2020-06-22] MEDS ORDERED: GLUCAGON FOR INJ 1 MG VIAL IM PRN (19:30)
[2020-06-22] MEDS ORDERED: GLUCOSE 10 TABS/TUBE PO PRN (19:30)
[2020-06-22] MEDS ORDERED: DEXTROSE 50% 50 ML SYRINGE IV PRN (19:30)
[2020-06-22] MEDS ORDERED: CARBOHYDRATES FOR HYPOGLYCEMIA PO PRN (19:30)
[2020-06-22] MEDS: ENOXAPARIN INJ 40 MG/0.4 ML SYR SQ SCH (20:57)
[2020-06-22] MEDS: INSULIN ASPART 100 UNITS/ML 3 ML PEN SC SCH (21:00)
[2020-06-22] MEDS ORDERED: LANTUS PER UNIT CHARGE SQ ONE (21:15)
[2020-06-22] MEDS ORDERED: POTASSIUM CHLORIDE CRTAB 20 MEQ TABCR PO STA (22:02)
[2020-06-22] MEDS ORDERED: GADOBUTROL 65ML VIAL IV ONE (23:17)
[2020-06-23] MEDS ORDERED: INSULIN ASPART 100 UNITS/ML 3 ML PEN SC SCH (02:00)
--- NOTE | 2020-06-23 07:13 | Magnetic Resonance Report ---
MRI OF THE BRAIN WITHOUT AND WITH IV CONTRAST CLINICAL HISTORY: stroke hemianopsia of right eye COMPARISON STUDY: Head CT dated 06/22/2020, MRI dated 04/20/2019 TECHNIQUE: MRI of the brain was performed from the vertex to the skull base utilizing various T1 and T2 weighted sequences. Following the IV administration of 1.5 mL of Gadavist contrast, additional enh anced images were obtained. FINDINGS: Sagittal T1, axial diffusion, proton density and T2 weighted axial, coronal FLAIR, and pre and post a xial T1-weighted images were acquired. These were supplemented with post gadolinium coronal T1 weight ed images. No intra or extra-axial mass lesions are visualized. Axial diffusion-weighted images reveal no evidence of acute or subacute infarction. There is no evidence of ventricular dilatation. Proton density T2-weighted and FLAIR images reveal moderate foci of increased T2 signal within the wh ite matter, likely on a small vessel basis. There are no abnormal flow voids. There is no evidence of pathologic enhancement. IMPRESSION: 1. No acute intracranial findings 2. No evidence of acute or subacute infarction 3. No evidence of intracranial mass 4. Moderate white matter disease similar to the preceding study and likely on a small vessel ischemic basis ACT 112: Negative or not required by law. Electronically signed by: Christopher Sears M.D. 06/23/2020 7:11 AM
[2020-06-23 07:36] LABS: Basophils # (auto) 0.02 K/uL (0-0.2); Basophils % (auto) 0.2 %; Eosinophils # (auto) 0.02 K/uL (0-0.5); Eosinophils % (auto) 0.2 %; Hematocrit (blood only) 39.1 % (42-52); Hemoglobin 14.5 g/dL (14.0-18.0); Immature Granulocytes # (auto) 0.05 K/uL (0.00-0.02); Immature Granulocytes % (auto) 0.4 %; Lymphocytes # (auto) 1.66 K/uL (1.2-3.4); Lymphocytes % (auto) 13.2 %; Mean Corpuscular Hemoglobin 31.9 pg (25-34); Mean Corpuscular Hgb Conc 37.1 g/dL (32-36); Mean Corpuscular Volume 85.9 fL (80-100); Mean Platelet Volume 11.2 fL (7.4-10.4); Monocytes # (auto) 1.09 K/uL (0.11-0.59); Monocytes % (auto) 8.7 %; Neutrophils # (auto) 9.73 K/uL (1.4-6.5); Neutrophils % (auto) 77.3 %; Platelet Count 446 K/uL (130-400); RDW Coefficient of Variation 13.3 % (11.5-14.5); Red Blood Count 4.55 M/uL (4.7-6.1); White Blood Count 12.57 K/uL (4.8-10.8)
[2020-06-23 08:09] LABS: BUN Creatinine Ratio 25.8 (10-20); Bilirubin Direct 0.2 mg/dl (0-0.2); Calcium 9.2 mg/dl (8.5-10.1); Creatinine Clr Calc Pharmacy 51.2 ml/min; Est GFR (African American) 50.2; Est GFR (Non-African American) 43.3; Potassium 3.4 mmol/L (3.5-5.1)
[2020-06-23] MEDS: FOLIC ACID 1 MG TAB PO SCH (08:13)
[2020-06-23] MEDS: FLUTICASONE/VILANTEROL 100/25MCG 14 PUFFS/INHALER INH SCH (08:13)
[2020-06-23] MEDS: ASPIRIN 81 MG ECTAB PO SCH (08:13)
[2020-06-23] MEDS: ATORVASTATIN 40 MG TAB PO SCH (08:14)
[2020-06-23] MEDS: ENOXAPARIN INJ 40 MG/0.4 ML SYR SQ SCH ×2 (08:14→21:20)
[2020-06-23] MEDS: CLOPIDOGREL BISULFATE 75 MG TAB PO SCH (08:14)
[2020-06-23] MEDS: ESCITALOPRAM OXALATE 10 MG TAB PO SCH (08:14)
[2020-06-23 08:15] LABS: Bilirubin,Total 0.6 mg/dl (0.2-1); Total Protein 7.1 gm/dl (6.4-8.2)
--- NOTE | 2020-06-23 08:20 | Neurology Consultation ---
Date of Consultation June 23, 2020 Assessment & Plan (1) Vision loss, right eye: (2) Stroke-like symptoms: Patient's presentation seems most consistent with branch retinal artery occlusion. He has painless incomplete vision loss to the right eye only, affecting central vision as well as aspects of the nasal field with confrontation testing. Patient can perceive motion and otherwise has very poor visual acuity with the right eye. He does not have an obvious afferent pupillary defect. However, ischemic optic neuropathy cannot be excluded. Furthermore, his inflammatory markers are significantly elevated in the context of recent COVID-19 infection. Arteritic ischemic optic neuropathy may not be excluded. Patient's brain MRI is negative for acute or subacute stroke. Would recommend consultation with surgery for temporal artery biopsy to exclude arteritis. Would recommend additional treatment with corticosteroids given the possibility of arteritis. Would recommend 1000 mg of IV Solu-Medrol per day for 3 days followed by prednisone 60 mg/day with plan to taper off depending on results of temporal artery biopsy. Continue with Plavix and atorvastatin. May continue with daily low-dose aspirin as well for the time being, but would discontinue this medication after 3 weeks as long-term use of dual antiplatelet therapy is typically not recommended for secondary stroke risk reduction. Patient will need an up-to-date ophthalmology evaluation as well. Could be done during patient's hospitalization to potentially assist with his acute management, or done as an outpatient within a few days of discharge if possible. History of Present Illness Reason for Consultation: Possible stroke, hemianopsia, COVID-19 Requesting Physician: GUERO Peterson Attending Physician: Constanza Dorantes MD History of Present Illness The patient is a 69-year-old male who presented to the emergency department yesterday complaining of difficulty seeing out of the right eye that began yesterday potentially concerning for stroke. History notable for recent COVID- 19 infection with a positive test the day prior to his presentation in the emergency department. He has described his vision disturbance to the right eye as "puzzle piece vision." He reports having a similar vision disturbance in March 2019 that was felt to be related to a stroke at that time. He underwent carotid endarterectomy. He further describes his vision loss is painless, affecting only the right eye, primarily the nasal field. Past medical history is also notable for type 2 diabetes mellitus, hypertension, hyperlipidemia, and COPD. He is prescribed atorvastatin and clopidogrel. Initial neuro imaging including CT of the head and CT angiography of the head and neck revealed changes consistent with a prior right carotid endarterectomy and atheromatous plaque within the left carotid bulb and proximal left ICA resulting in an approximate 60% luminal narrowing. A follow-up brain MRI is negative for acute or subacute infarct. There is a moderate degree of chronic small vessel ischemic disease. These imaging findings were observed by the interpreting radiologist, I reviewed the images as well and agree. The patient did see Dr. Jenkins in neurological consultation in April 2019 for an episode of transient left-sided weakness in the setting of bradycardia and hypertension. The symptoms occurred after having undergone right carotid endarterectomy earlier that week. He has followed with a stroke specialist at [facility], via telehealth appointments, last seen in January 2020. Issues at that time included a history of right subcortical ischemic stroke in March 2019 (nonimageable), probable large vessel etiology/symptomatic right ICA stenosis, history of right carotid endarterectomy, following with vascular surgery, only residual stroke deficit persistent modest mood changes, irritable/angry at times per his spouse. Patient has a history of cigarette smoking as well as hyper homocystinemia, on supplemental folic acid. He was recently evaluated by Dr. Anguiano, ophthalmology, this past April, no evidence of diabetic retinopathy at that time. Allergies Allergy/AdvReac Type Severity Reaction Status Date / Time No Known Allergies Allergy Unverified 06/22/20 12:06 Home Medications Medication Instructions Recorded Confirmed Type atorvastatin 40 mg tablet 40 mg PO DAILY #90 tab 04/18/20 06/22/20 Rx clopidogrel 75 mg tablet 75 mg PO QAM #90 tab 04/18/20 06/22/20 Rx hydrochlorothiazide 25 mg tablet 25 mg PO DAILY #90 tab 04/18/20 06/22/20 Rx losartan 50 mg tablet 50 mg PO DAILY #90 tab 04/18/20 06/22/20 Rx metformin 500 mg tablet 500 mg PO BID #180 tab 04/18/20 06/22/20 Rx fluticasone 100 mcg-salmeterol 50 1 inh INHALATION BID #60 ea 04/20/20 06/22/20 Rx mcg/dose blistr powdr for inhalation blood sugar diagnostic #100 ea 05/23/20 Rx folic acid 1 mg tablet 2.5 mg PO QAM 90 Days #225 tab 06/13/20 06/22/20 Rx escitalopram oxalate 10 mg PO DAILY 06/22/20 06/22/20 History Patient History Medical History (Updated 06/23/20 @ 10:08 by Eugenio Pedraza MD) Carotid artery 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 Rock Transient ischemic attack Surgical History History of cholecystectomy History of right-sided carotid [place]arte[place]04/[place] [facility] [place] Family History Father Myocardial infarction Father COPD (chronic obstructive pulmonary disease) Coronary heart disease Diabetes Family/Other Stroke FH: deafness or hearing loss Mother Stroke Denies family history of Ovarian cancer Prostate cancer Breast cancer Colorectal cancer Social History Smoking Status: Former smoker Tobacco Type: Cigarettes Age Started Using Tobacco: 16; packs per day: 0.5; Years Smoked: 53; Cigarettes Per Day: 2pk a day; Second Hand Exposure: Yes; Do You Dip or Chew Tobacco: No; Tobacco Cessation Education Requested by Patient: No Hx Alcohol Use: No Hx Substance Use: No Preferred Language: Mongolian Communication Ability: Effective Visual Impairment: No Limitations Hearing Ability: Use of Hearing Aid Pigment Pusher Required: No Beliefs That Will Affect Care: None marital status: Current Living Situation: Spouse current occupational status: employed Other Information That Helps Us Care for You: No Feels Safe at Home: Yes Safety Concerns: Feels Safe At This Time Childhood Exposure to Second-Hand Smoke: Yes Dental Care, Regularly: Yes Physical Activity Frequency: 1-2 Times per Week Physical Activity Frequency Comment: walks, 15 mintues Seatbelt Use: always Sunscreen Use: No Assistive Devices: Glasses Review of Systems Constitutional: no fever and no chills Eyes: as per Subjective / HPI Ear, Nose, Mouth, Throat: + hearing loss Respiratory: no cough and no dyspnea Cardiovascular: no chest pain and no palpitations Gastrointestinal: no nausea and no vomiting Genitourinary: no dysuria Musculoskeletal: no myalgia Integumentary: no rash and no lesions Neurologic: as per Subjective / HPI Psychiatric: no depression and no anxiety Hematologic / Lymphatic: no easy bleeding and no easy bruising Exam (Neuro) Constitutional: well developed and well nourished; no acute distress Eyes: PERRL, normal accommodation and EOM intact bilaterally; + abnormal visual field confrontation, no fundoscopic abnormality, no nystagmus and no papilledema Patient has a visual field deficit to the right eye only affecting central vision as well as aspects of the nasal field. Cardiovascular: Vessels: normal carotid upstroke; no carotid bruit Neurologic: Oriented to:: Person, Place and Time Memory: Short Term Intact and Remote Intact Attention: Span Intact and Concentration Intact Language: Naming Objects and Repeating Phrases Speech Fluency: negative Dysarthria Speech Aphasia: negative Aphasia Fund of Knowledge: Current Events, Past History and Vocabulary Cranial Nerves: Normal III, IV, (Pupils equal round reactive to light and accommodation, eye movements normal), V (Facial sensation intact), VII (There is no facial droop or weakness), VIII (Hearing intact), IX, X (Palate elevates to midline), XI (Shoulder shrug intact) and XII (Tongue protrudes to midline); Abnorm II (Visual deficits of the right eye only) Motor Strength: Normal Lower Extremities and Normal Upper Extremities; negative Pronator Drift Motor Tone: Normal Lower Extremities and Normal Upper Extremities Muscle Bulk/Involuntary Movements: No Involuntary Movements; negative Muscle Atrophy Sensation: Light Touch Intact, Pain/Temperature Intact, Vibration Intact and Proprioception Intact Coordina tion: Normal; negative Limited Balance, Dysdiadochokinesia, Finger-Nose Abnormal and Heel-Carr Abnormal Deep Tendon Reflexes: Rt Triceps: 2+, Lt Triceps: 2+, Rt Biceps: 2+, Lt Biceps: 2+, Rt Brachioradialis: 2+, Lt Brachioradialis: 2+, Rt Patellar: 2+, Lt Patellar: 2+, Rt Ankle: 2+ and Lt Ankle: 2+ Special Tests: negative Babinski Present Gait: Normal Station and Gait Results & Data ([facility]) Vital Signs (Past 12 Hours) Vital Signs Temp Pulse Pulse Resp BP Pulse Ox 06/23/20 03:37 36.4 C L 57 L 20 133/73 91 06/22/20 23:37 36.6 C 60 16 112/63 92 06/22/20 21:00 60 Laboratory Results WBC 12.57, hemoglobin 14.5, hematocrit 39.1, platelet count 446, ESR 72, sodium 136, potassium 3.4, BUN 42, creatinine 1.61, glucose 157, hemoglobin A1c this past January was 7.9, AST 81, ALT 104, C-reactive protein 15.10, triglycerides 85, cholesterol 75, LDL 35, VLDL 17, HDL 23, SARS-CoV-2 PCR positive Diagnostic Findings Imaging including CT of the head, CT angiography of the head and neck, and brain MRI are as described in the HPI. An electrocardiogram reveals a normal sinus rhythm with sinus arrhythmia, 70 bpm An echocardiogram completed April 21, 2019 had revealed normal left ventricular systolic function, no regional wall motion abnormalities, mild concentric left ventricular hypertrophy, ejection fraction 55 to 60%, left atrium mildly dilated, no ASD. Coding Level of Care Code 07459 Initial Inpt Care Lvl 3 Diagnoses Vision loss, right eye H54.61 Stroke-like symptoms R29.90
[2020-06-23] MEDS ORDERED: POTASSIUM CHLORIDE CRTAB 20 MEQ TABCR PO STA (08:41)
[2020-06-23] MEDS ORDERED: INSULIN GLARGINE SOLOSTAR 100 UNITS/ML 3 ML PEN SC SCH ×2 (09:00→21:00)
[2020-06-23] MEDS: INSULIN ASPART 100 UNITS/ML 3 ML PEN SC SCH ×4 (09:00→21:19)
[2020-06-23] MEDS ORDERED: LOSARTAN POTASSIUM 50 MG TAB PO SCH (09:00)
[2020-06-23] MEDS ORDERED: hydroCHLOROthiazide 25 MG TAB PO SCH (09:00)
--- NOTE | 2020-06-23 09:20 | Pharmacy Report ---
Pharmacy Glycemic Short Note 2 - Date of Service June 23, 2020 - Glycemic Short BSG Results (Last 24 hours): 06/22/20 06/22/20 06/23/20 12:04 20:22 03:34 Glucose 146 H POC Glucose 207 H 214 H 06/23/20 06/23/20 07:17 08:03 Glucose 157 H POC Glucose 158 H OUTPATIENT ANTIDIABETIC REGIMEN: * Metformin 500 mg PO BIDM * HbA1c: 7.5% (06/23/20) ASSESSMENT: * VS is a 69 year old male who presented to [facility] ED on evening of 06/22/20 with vision loss in right eye * Patient given 10 mg IV dexamethasone last evening - day 12 of COVID-19 illness * Steroids not continued * BSGs overnight of 207 and 214 mg/dL * Will plan on weight-based stress of 2 dosing of insulin initially PLAN FOR INPATIENT GLYCEMIC CONTROL: * Hold outpatient oral diabetes medications * Basal insulin * Lantus 15 units SC this morning * Lantus scale SC HS (5-15 units) - see EHR for details * Bolus insulin * NovoLog per scale ACHS or Q6hrs while NPO * Goal Range: Low 110 mg/dL - High 140 mg/dL * Correction Factor: 20 mg/dL/unit * Nutritional / Prandial insulin per carb ratio of 1 unit per 7 grams CHO consumed PLAN FOR DISCHARGE: * Goal HbA1c for most adults is less than 7% * Patient's HbA1c is slightly above goal - would suggest titrating metformin dosing upwards as recommended. Dosage increases should be made in increments of 500 mg weekly, up to 2,000 mg/day PO, given in divided doses. Doses above 2000 mg/day may be better tolerated if divided and given 3 times per day with meals. 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
[2020-06-23 09:32] LABS: Estimated Average Glucose 169 mg/dl; Hemoglobin A1C 7.5 % (4.5-5.6)
[2020-06-23 09:44] LABS: Appearance Urine Clear (Clear); Bilirubin Urine Negative (Negative); Blood Urine Negative (Negative); Color Urine Yellow; Glucose Urine UA Negative (Negative); Ketones Urine Negative (Negative); Leukocyte Esterase Urine Negative (Negative); Nitrite Urine Negative (Negative); Protein Urine Negative (Negative); Specific Gravity Urine 1.022 (1.000-1.030); Urobilinogen Urine Negative (Negative)
--- NOTE | 2020-06-23 12:40 | Hospitalist Progress Note ---
Date of Service June 23, 2020 Assessment & Plan (1) Pneumonia due to 2019 novel coronavirus: Stable on small amount of NC O2. Day #2/10 of IV/PO decadron 6mg. Self-proning encouraged. Flutter valve. Incentive neda. Lovenox DVT proph. (2) Acute respiratory failure with hypoxia: 2nd COVID-19 pneumonia in the setting of COPD. See above. 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 ?COVID-19 leading to hypercoagulability and then the stroke? Cont asa. Cont statin. Spoke with Dr Hill, patient's primary ophthamologist - he will see Mr Cooper in office early this week for dilated eye exam. Care was d/w Dr Pedraza as well. No symptoms to suggest temporal arteritis. Elevated sed rate/crp likely due to COVID itself. (4) Hyperlipidemia: cont statin LDL 35 on lipid profile (5) Stroke-like symptoms: MRI w/o occipital lobe stroke Stroke is felt to be in the right eye itself (retinal artery branch occlusion) see above (6) Carotid artery stenosis: Left carotid stenosis 60% and right CEA performed 2019. Right carotid patent. Statin. Asa. (7) Hypokalemia: replete BMP daily (8) Diabetes mellitus type 2, uncontrolled: appreciate pharmacy consult & recs (9) Hyperhomocysteinemia: History of such Continue home folic acid 2.5 mg once daily Repeat homocysteine level am (10) Hyponatremia: resolved (11) Elevated liver transaminase level: Likely secondary to Covid-19 viral infection Trend (12) Mediastinal lymphadenopathy: Noted on CT scan of the neck here Review of stroke neurology notes shows that this was detected on scans at [place] as well and there are plans for repeat CT of the chest in 11/2020 Thought to be reactive as per their notes Repeat imaging later this year (13) COPD (chronic obstructive pulmonary disease): Cont inhalers, pulmonary toilet, NC O2 (14) Acute kidney injury: 1.6 Cr today baseline 1.2/1.3 BMP am (15) DVT prophylaxis: Lovenox 40mg BID due to high risk of VTE in setting of COVID-19 updated by phone this evening Admission and Anticipated Discharge Date Admission Date: June 22, 2020 Subjective patient resting in bed comfortably mild cough, largely nonproductive no dyspnea at rest; mild LESTER partial visual loss in right eye remains; left eye w/o any visual impairment denies headache or jaw pain or scalp tenderness denies focal motor weakness any limb brother is sick with COVID - currently vented in ICU tele overnight wnl Review of Systems Constitutional: + fatigue; no fever, no chills, no body aches and no anorexia Respiratory: no hemoptysis and no wheezing Cardiovascular: no chest pain and no edema Gastrointestinal: no abdominal pain Physical Exam Constitutional: no acute distress and no altered mental status Eyes: PERRL visual rubalcava full, left eye, by direct confrontation. right eye - central visual field loss as well as mild nasal visual field loss; lateral visual field intact. ENMT: external ear and nose normal, oropharynx normal Respiratory: no respiratory distress Auscultation: + crackles (bases - b/l - mild); no wheezes Cardiovascular: Rate/Rhythm: regular rate and regular rhythm Heart Sounds: normal S1 and normal S2; no murmur Vessels: posterior tibial pulses present and dorsalis pedis pulses present; no JVD Extremities: no edema Gastrointestinal (Abdomen): normal bowel sounds, soft, nontender, no hepatosplenomegaly Skin: no tenderness or swelling over either temporal artery on scalp Psychiatric: Orientation: alert and oriented x 3 Results & Data Results & Data ([facility]) Vital Signs (Past 12 Hours) Vital Signs Temp Pulse Resp BP Pulse Ox 06/23/20 11:34 36.4 C L 18 141/88 H 90 06/23/20 08:07 36.2 C L 65 16 133/74 90 06/23/20 03:37 36.4 C L 57 L 20 133/73 91 Laboratory Results Laboratory Results - last 24 hr 06/22/20 06/22/20 06/22/20 12:04 12:04 12:04 WBC RBC Hgb Hct MCV MCH MCHC RDW Std Deviation RDW Coeff of Doming[place] Plt Count MPV Immature Gran % (Auto) Neut % (Auto) Lymph % (Auto) [place] % (Auto) Eos % (Auto) Baso % (Auto) Neut # (Auto) Lymph # (Auto) [place] # (Auto) Eos # (Auto) Baso # (Auto) Immature Gran # (Auto) ESR 72 H Fibrinogen Sodium 132 L Potassium 2.6 L Chloride 98 Carbon Dioxide 23 Anion Gap 11.0 BUN 29 H Creatinine 1.34 Est Cr Clr Drug Dosing 61.3 Est GFR ( Amer) 62.6 Est GFR (Non-Af Amer) 54.1 BUN/Creatinine Ratio 21.6 H Glucose 146 H POC Glucose Estimat Average Glucose Hemoglobin A1c Calcium 9.1 Magnesium 2.3 Ferritin Total Bilirubin 1.3 H Direct Bilirubin AST 117 H ALT 127 H Alkaline Phosphatase 130 H Lactate Dehydrogenase Troponin I < 0.015 C-Reactive Protein 15.10 H Total Protein 7.8 Albumin 2.2 L Globulin 5.6 H Albumin/Globulin Ratio 0.4 L Triglycerides Cholesterol LDL Cholesterol, Calc VLDL Cholesterol, Calc HDL Cholesterol Cholesterol/HDL Ratio Urine Color Urine Appearance Urine pH Ur Specific Agency Urine Protein Urine Glucose (UA) Urine Ketones Urine Blood Urine Nitrite Urine Bilirubin Urine Urobilinogen Ur Leukocyte Esterase COVID-19 Eval Order SARS-CoV-2 (PCR) Hepatitis C Ab Screen Influenza Type A (PCR) Influenza Type B (PCR) RSV (RT-PCR) 06/22/20 06/22/20 06/22/20 14:54 14:54 16:08 WBC RBC Hgb Hct MCV MCH MCHC RDW Std Deviation RDW Coeff of Dom[place] Plt Count MPV Immature Gran % (Auto) Neut % (Auto) Lymph % (Auto) [place] % (Auto) Eos % (Auto) Baso % (Auto) Neut # (Auto) Lymph # (Auto) [place] # (Auto) Eos # (Auto) Baso # (Auto) Immature Gran # (Auto) ESR Fibrinogen 257 Sodium Potassium Chloride Carbon Dioxide Anion Gap BUN Creatinine Est Cr Clr Drug Dosing Est GFR ( Amer) Est GFR (Non-Af Amer) BUN/Creatinine Ratio Glucose POC Glucose Estimat Average Glucose Hemoglobin A1c Calcium Magnesium Ferritin Total Bilirubin Direct Bilirubin AST ALT Alkaline Phosphatase Lactate Dehydrogenase Troponin I C-Reactive Protein Total Protein Albumin Globulin Albumin/Globulin Ratio Triglycerides Cholesterol LDL Cholesterol, Calc VLDL Cholesterol, Calc HDL Cholesterol Cholesterol/HDL Ratio Urine Color Urine Appearance Urine pH Ur Specific Agency Urine Protein Urine Glucose (UA) Urine Ketones Urine Blood Urine Nitrite Urine Bilirubin Urine Urobilinogen Ur Leukocyte Esterase COVID-19 Eval Order CovFluRsv at [facility] SARS-CoV-2 (PCR) POSITIVE A* Hepatitis C Ab Screen Influenza Type A (PCR) Negative Influenza Type B (PCR) Negative RSV (RT-PCR) Negative 06/22/20 06/22/2006/22/21 16:08 16:08 20:22 WBC RBC Hgb Hct MCV MCH MCHC RDW Std Deviation RDW Coeff of [place] Plt Count MPV Immature Gran % (Auto) Neut % (Auto) Lymph % (Auto) [place] % (Auto) Eos % (Auto) Baso % (Auto) Neut # (Auto) Lymph # (Auto) [place] # (Auto) Eos # (Auto) Baso # (Auto) Immature Gran # (Auto) ESR Fibrinogen Sodium Potassium Chloride Carbon Dioxide Anion Gap BUN Creatinine Est Cr Clr Drug Dosing Est GFR ( Amer) Est GFR (Non-Af Amer) BUN/Creatinine Ratio Glucose POC Glucose 207 H Estimat Average Glucose Hemoglobin A1c Calcium Magnesium Ferritin 503.0 H Total Bilirubin Direct Bilirubin AST ALT Alkaline Phosphatase Lactate Dehydrogenase 99 Troponin I C-Reactive Protein Total Protein Albumin Globulin Albumin/Globulin Ratio Triglycerides Cholesterol LDL Cholesterol, Calc VLDL Cholesterol, Calc HDL Cholesterol Cholesterol/HDL Ratio Urine Color Urine Appearance Urine pH Ur Specific Agency Urine Protein Urine Glucose (UA) Urine Ketones Urine Blood Urine Nitrite Urine Bilirubin Urine Urobilinogen Ur Leukocyte Esterase COVID-19 Eval Order SARS-CoV-2 (PCR) Hepatitis C Ab Screen Influenza Type A (PCR) Influenza Type B (PCR) RSV (RT-PCR) 06/23/20 06/23/20 06/23/20 03:34 07:17 07:17 WBC 12.57 H RBC 4.55 L Hgb 14.5 Hct 39.1 L MCV 85.9 MCH 31.9 MCHC 37.1 H RDW Std Deviation 42.0 RDW Coeff of Dominga 13.3 Plt Count 446 H MPV 11.2 H Immature Gran % (Auto) 0.4 Neut % (Auto) 77.3 Lymph % (Auto) 13.2 [place] % (Auto) 8.7 Eos % (Auto) 0.2 Baso % (Auto) 0.2 Neut # (Auto) 9.73 H Lymph # (Auto) 1.66 [place] # (Auto) 1.09 H Eos # (Auto) 0.02 Baso # (Auto) 0.02 Immature Gran # (Auto) 0.05 H ESR Fibrinogen Sodium Potassium Chloride Carbon Dioxide Anion Gap BUN Creatinine Est Cr Clr Drug Dosing Est GFR ( Amer) Est GFR (Non-Af Amer) BUN/Creatinine Ratio Glucose POC Glucose 214 H Estimat Average Glucose Hemoglobin A1c Calcium Magnesium Ferritin Total Bilirubin Direct Bilirubin AST ALT Alkaline Phosphatase Lactate Dehydrogenase Troponin I C-Reactive Protein Total Protein Albumin Globulin Albumin/Globulin Ratio Triglycerides Cholesterol LDL Cholesterol, Calc VLDL Cholesterol, Calc HDL Cholesterol Cholesterol/HDL Ratio Urine Color Urine Appearance Urine pH Ur Specific Agency Urine Protein Urine Glucose (UA) Urine Ketones Urine Blood Urine Nitrite Urine Bilirubin Urine Urobilinogen Ur Leukocyte Esterase COVID-19 Eval Order SARS-CoV-2 (PCR) Hepatitis C Ab Screen Neg Influenza Type A (PCR) Influenza Type B (PCR) RSV (RT-PCR) 06/23/20 06/23/20 06/23/20 07:17 07:17 08:03 WBC RBC Hgb Hct MCV MCH MCHC RDW Std Deviation RDW Coeff of [place] Plt Count MPV Immature Gran % (Auto) Neut % (Auto) Lymph % (Auto) [place] % (Auto) Eos % (Auto) Baso % (Auto) Neut # (Auto) Lymph # (Auto) [place] # (Auto) Eos # (Auto) Baso # (Auto) Immature Gran # (Auto) ESR Fibrinogen Sodium 136 Potassium 3.4 L D Chloride 105 Carbon Dioxide 22 Anion Gap 9.0 BUN 42 H Creatinine 1.61 H Est Cr Clr Drug Dosing 51.2 Est GFR ( Amer) 50.2 Est GFR (Non-Af Amer) 43.3 BUN/Creatinine Ratio 25.8 H Glucose 157 H POC Glucose 158 H Estimat Average Glucose 169 Hemoglobin A1c 7.5 H Calcium 9.2 Magnesium Ferritin Total Bilirubin 0.6 D Direct Bilirubin 0.2 AST 81 H ALT 104 H Alkaline Phosphatase 114 Lactate Dehydrogenase Troponin I C-Reactive Protein Total Protein 7.1 Albumin 2.0 L Globulin Albumin/Globulin Ratio Triglycerides 85 Cholesterol 75 LDL Cholesterol, Calc 35 VLDL Cholesterol, Calc 17 HDL Cholesterol 23 Cholesterol/HDL Ratio 3 Urine Color Urine Appearance Urine pH Ur Specific Agency Urine Protein Urine Glucose (UA) Urine Ketones Urine Blood Urine Nitrite Urine Bilirubin Urine Urobilinogen Ur Leukocyte Esterase COVID-19 Eval Order SARS-CoV-2 (PCR) Hepatitis C Ab Screen Influenza Type A (PCR) Influenza Type B (PCR) RSV (RT-PCR) 06/23/20 06/23/20 09:15 11:31 WBC RBC Hgb Hct MCV MCH MCHC RDW Std Deviation RDW Coeff of Dominga Plt Count MPV Immature Gran % (Auto) Neut % (Auto) Lymph % (Auto) [place] % (Auto) Eos % (Auto) Baso % (Auto) Neut # (Auto) Lymph # (Auto) [place] # (Auto) Eos # (Auto) Baso # (Auto) Immature Gran # (Auto) ESR Fibrinogen Sodium Potassium Chloride Carbon Dioxide Anion Gap BUN Creatinine Est Cr Clr Drug Dosing Est GFR ( Amer) Est GFR (Non-Af Amer) BUN/Creatinine Ratio Glucose POC Glucose 172 H Estimat Average Glucose Hemoglobin A1c Calcium Magnesium Ferritin Total Bilirubin Direct Bilirubin AST ALT Alkaline Phosphatase Lactate Dehydrogenase Troponin I C-Reactive Protein Total Protein Albumin Globulin Albumin/Globulin Ratio Triglycerides Cholesterol LDL Cholesterol, Calc VLDL Cholesterol, Calc HDL Cholesterol Cholesterol/HDL Ratio Urine Color Yellow Urine Appearance Clear Urine pH 5.0 Ur Specific Agency 1.022 Urine Protein Negative Urine Glucose (UA) Negative Urine Ketones Negative Urine Blood Negative Urine Nitrite Negative Urine Bilirubin Negative Urine Urobilinogen Negative Ur Leukocyte Esterase Negative COVID-19 Eval Order SARS-CoV-2 (PCR) Hepatitis C Ab Screen Influenza Type A (PCR) Influenza Type B (PCR) RSV (RT-PCR) PG Care Time/CCT Total # of Minutes Spent Total Time Spent with Patient: Total time spent is greater than 50% in coordination of care (as documented) at patient's floor/unit and/or counseling patient: Coding Level of Care Code 71186 Subseq Hosp Care Lvl 3 Diagnoses Pneumonia due to 2019 novel coronavirus U07.1; J12.82 Acute respiratory failure with hypoxia J96.01 Vision loss, right eye H54.61 Hyperlipidemia E78.5 Hyperlipidemia type: unspecified Stroke-like symptoms R29.90 Carotid artery stenosis I65.22 Laterality: left Hypokalemia E87.6 Diabetes mellitus type 2, uncontrolled E11.65 Glycemic state: with hyperglycemia Hyperhomocysteinemia E72.11 Hyponatremia E87.1 Elevated liver transaminase level R74.01 Mediastinal lymphadenopathy R59.0 COPD (chronic obstructive pulmonary disease) J44.9 COPD type: unspecified COPD Acute kidney injury N17.9 DVT prophylaxis Z29.9 (1) Carotid artery stenosis Laterality: left Qualified Code(s): I65.22 - Occlusion and stenosis of left carotid artery (2) Hyperlipidemia Hyperlipidemia type: unspecified Qualified Code(s): E78.5 - Hyperlipidemia, unspecified (3) Diabetes mellitus type 2, uncontrolled Glycemic state: with hyperglycemia Qualified Code(s): E11.65 - Type 2 diabetes mellitus with hyperglycemia (4) COPD (chronic obstructive pulmonary disease) COPD type: unspecified COPD Qualified Code(s): J44.9 - Chronic obstructive pulmonary disease, unspecified
[2020-06-23] MEDS: dexAMETHasone 6 MG in SYRINGE 0 ML IV SCH (13:28)
[2020-06-24 07:19] LABS: Basophils # (auto) 0.03 K/uL (0-0.2); Basophils % (auto) 0.2 %; Eosinophils # (auto) 0.06 K/uL (0-0.5); Eosinophils % (auto) 0.4 %; Hematocrit (blood only) 40.4 % (42-52); Hemoglobin 14.3 g/dL (14.0-18.0); Immature Granulocytes # (auto) 0.09 K/uL (0.00-0.02); Immature Granulocytes % (auto) 0.6 %; Lymphocytes # (auto) 2.18 K/uL (1.2-3.4); Mean Corpuscular Hemoglobin 31.5 pg (25-34); Mean Corpuscular Hgb Conc 35.4 g/dL (32-36); Mean Platelet Volume 11.1 fL (7.4-10.4); Monocytes # (auto) 1.25 K/uL (0.11-0.59); Neutrophils # (auto) 11.93 K/uL (1.4-6.5); Neutrophils % (auto) 76.8 %; Platelet Count 465 K/uL (130-400); RDW Coefficient of Variation 13.4 % (11.5-14.5); RDW Standard Deviation 43.9 fL (36.4-46.3); Red Blood Count 4.54 M/uL (4.7-6.1); White Blood Count 15.54 K/uL (4.8-10.8)
[2020-06-24 07:53] LABS: D Dimer 870 ug/L FEU (0-500)
[2020-06-24 07:54] LABS: BUN Creatinine Ratio 33.4 (10-20); Calcium 8.8 mg/dl (8.5-10.1); Creatinine Clr Calc Pharmacy 63.4 ml/min; Est GFR (Non-African American) 56.1; Potassium 3.5 mmol/L (3.5-5.1)
[2020-06-24] MEDS: FLUTICASONE/VILANTEROL 100/25MCG 14 PUFFS/INHALER INH SCH (09:03)
[2020-06-24] MEDS: dexAMETHasone 6 MG in SYRINGE 0 ML IV SCH (09:03)
[2020-06-24] MEDS: CLOPIDOGREL BISULFATE 75 MG TAB PO SCH (09:04)
[2020-06-24] MEDS: ASPIRIN 81 MG ECTAB PO SCH (09:04)
[2020-06-24] MEDS: FOLIC ACID 1 MG TAB PO SCH (09:04)
[2020-06-24] MEDS: ATORVASTATIN 40 MG TAB PO SCH (09:04)
[2020-06-24] MEDS: ESCITALOPRAM OXALATE 10 MG TAB PO SCH (09:05)
[2020-06-24] MEDS: ENOXAPARIN INJ 40 MG/0.4 ML SYR SQ SCH ×2 (09:05→21:35)
[2020-06-24] MEDS: INSULIN ASPART 100 UNITS/ML 3 ML PEN SC SCH ×4 (09:36→21:31)
[2020-06-24] MEDS: INSULIN GLARGINE SOLOSTAR 100 UNITS/ML 3 ML PEN SC SCH (09:37)
[2020-06-24] MEDS ORDERED: OPTIRAY 320 125ml IV ONE (11:55)
--- NOTE | 2020-06-24 12:46 | CT Scan Report ---
CT angio chest w con HISTORY: 69 years-old Male COVID-19; hypoxic; eval PE acute hypoxia and shortness of breath. COVID P ositive. COMPARISON: Chest radiograph 06/22/2020 TECHNIQUE: CTA of the chest was obtained following the intravenous administration of 120 mL Optiray 3 20. A dose lowering technique was used consistent with the principals of EVETTE. FINDINGS: CTA: Mild cardiomegaly. No pericardial effusion. Moderate coronary artery calcifications. No thoracic aort ic aneurysm. There is patency of the imaged great vessels. The pulmonary arterial tree is opacified t o the level of the subsegmental branches and demonstrates no filling defects to suggest thromboemboli c disease. CT CHEST: Unremarkable thyroid. There are several mildly enlarged paratracheal, prevascular, AP window, subcari nal and bilateral hilar lymph nodes present which measure up to 12 mm. No pneumothorax or pleural eff usion. Emphysema with bronchial wall thickening suggestive of bronchitis. Multifocal peripheral subpl eural predominant groundglass and alveolar opacities are noted within all lobes bilaterally. There ar e no suspicious pulmonary nodules or masses identified. The central airways are patent. No pneumoperitoneum. Gastric fundal diverticulum. Indeterminate 1.3 center left adrenal gland nodule with Houn[place] of 24. Heterogeneous enhancement of the left kidney is likely secondary to phase of c ontrast. 10 mm hypodensity of the superior pole left kidney is suggestive of a probable cyst. Unremar kable soft tissues. No acute fracture or suspicious bone lesion. IMPRESSION: 1. No pulmonary emboli. 2. Subpleural predominant bilateral groundglass and alveolar opacities compatible with multifocal pne umonia, likely viral etiology. 3. Numerous enlarged mediastinal and hilar lymph nodes, likely reactive. 4. Cardiomegaly with moderate coronary artery calcifications. ACT 112: Negative or not required by law. The above report was generated using voice recognition software. It may contain grammatical, syntax o r spelling errors. Electronically signed by: Todd Urban M.D. 06/24/2020 12:44 PM
--- NOTE | 2020-06-24 14:19 | Pharmacy Report ---
Pharmacy Glycemic Short Note 2 - Date of Service June 24, 2020 - Glycemic Short BSG Results (Last 24 hours): 06/23/20 06/23/20 06/24/20 16:07 21:15 06:58 Glucose 126 H POC Glucose 181 H 238 H 06/24/20 06/24/20 08:07 12:14 Glucose POC Glucose 140 H 176 H OUTPATIENT ANTIDIABETIC REGIMEN: * Metformin 500 mg PO BIDM * HbA1c: 7.5% (06/23/20) ASSESSMENT: 06/24 * BSGs increased throughout the day yesterday, 158, 172, 181, and 238 mg/dL * Unsurprising given dexamethasone 6 mg IV daily was started yesterday afternoon and not covered with additional insulin * Patient received 67 units of insulin (30 units of basal and 37 units of prandial/correctional insulin) * Fasting BSG of 140 mg/dL this morning * With the addition of steroids today, will plan to tighten Novolog parameters and increase Lantus dose 06/23: * VS is a 69 year old male who presented to [facility] ED on evening of 06/22/20 with vision loss in right eye * Patient given 10 mg IV dexamethasone last evening - day 12 of COVID-19 illness * Steroids not continued * BSGs overnight of 207 and 214 mg/dL * Will plan on weight-based stress of 2 dosing of insulin initially PLAN FOR INPATIENT GLYCEMIC CONTROL: * Hold outpatient oral diabetes medications * Basal insulin - increase * Lantus 40 units SC daily - given with IV dexamethasone * Bolus insulin - tighten * NovoLog per scale ACHS or Q6hrs while NPO * Goal Range: Low 110 mg/dL - High 140 mg/dL * Correction Factor: 15 mg/dL/unit * Nutritional / Prandial insulin per carb ratio of 1 unit per 6 grams CHO consumed PLAN FOR DISCHARGE: * Goal HbA1c for most adults is less than 7% * Patient's HbA1c is slightly above goal - would suggest titrating metformin dosing upwards as recommended. Dosage increases should be made in increments of 500 mg weekly, up to 2,000 mg/day PO, given in divided doses. Doses above 2000 mg/day may be better tolerated if divided and given 3 times per day with meals. Max: 2,550 mg/day PO, in divided doses B12 supplementation may be necessary with custodial metformin
[2020-06-25] MEDS ORDERED: INSULIN ASPART 100 UNITS/ML 3 ML PEN SC SCH (02:00)
[2020-06-25 06:52] LABS: Basophils # (auto) 0.03 K/uL (0-0.2); Basophils % (auto) 0.2 %; Eosinophils # (auto) 0.09 K/uL (0-0.5); Eosinophils % (auto) 0.7 %; Hematocrit (blood only) 39.5 % (42-52); Hemoglobin 13.8 g/dL (14.0-18.0); Immature Granulocytes # (auto) 0.08 K/uL (0.00-0.02); Immature Granulocytes % (auto) 0.6 %; Lymphocytes # (auto) 2.77 K/uL (1.2-3.4); Lymphocytes % (auto) 20.5 %; Mean Corpuscular Hemoglobin 31.4 pg (25-34); Mean Corpuscular Hgb Conc 34.9 g/dL (32-36); Mean Platelet Volume 11.1 fL (7.4-10.4); Monocytes # (auto) 1.18 K/uL (0.11-0.59); Monocytes % (auto) 8.7 %; Neutrophils # (auto) 9.35 K/uL (1.4-6.5); Neutrophils % (auto) 69.3 %; Platelet Count 451 K/uL (130-400); RDW Coefficient of Variation 13.4 % (11.5-14.5); RDW Standard Deviation 44.3 fL (36.4-46.3); Red Blood Count 4.39 M/uL (4.7-6.1)
[2020-06-25 07:29] LABS: BUN Creatinine Ratio 35.8 (10-20); Calcium 9.5 mg/dl (8.5-10.1); Creatinine Clr Calc Pharmacy 68.5 ml/min; Est GFR (African American) 71.6; Est GFR (Non-African American) 61.8; Potassium 3.2 mmol/L (3.5-5.1)
[2020-06-25] MEDS ORDERED: POTASSIUM CHLORIDE CRTAB 20 MEQ TABCR PO STA ×2 (08:05→14:12)
--- NOTE | 2020-06-25 08:14 | Hospitalist Progress Note ---
Date of Service June 24, 2020 Assessment & Plan (1) Pneumonia due to 2019 novel coronavirus: Stable on small amount of [place] O2. Day #3/10 of IV/PO decadron 6mg. Self-proning encouraged. Flutter valve. Incentive neda. Lovenox DVT proph. No evidence of complicating CHF or bacterial pneumonia. CTA neg for PE today. (2) Acute respiratory failure with hypoxia: 2nd COVID-19 pneumonia in the setting of COPD. See above. 2-step ambulatory O2 test at time of discharge. 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 ?COVID-19 leading to hypercoagulability and then the stroke? Cont asa. Cont statin. Spoke with Dr Hill, patient's primary ophthamologist - he will see Mr Cooper in office early this week for dilated eye exam. Care was d/w Dr Pedraza as well. No symptoms to suggest temporal arteritis. Elevated sed rate/crp likely due to COVID itself. No change in visual rubalcava today. (4) Hyperlipidemia: cont statin LDL 35 on lipid profile (5) Stroke-like symptoms: MRI w/o occipital lobe stroke Stroke is felt to be in the right eye itself (retinal artery branch occlusion) see above (6) Carotid artery stenosis: Left carotid stenosis 60% and right CEA performed 2019. Right carotid patent. Statin. Asa. (7) Hypokalemia: repleted BMP in am (8) Diabetes mellitus type 2, uncontrolled: appreciate pharmacy consult & recs controlled (9) Hyperhomocysteinemia: History of such Continue home folic acid 2.5 mg once daily Repeat homocysteine level pending (10) Hyponatremia: resolved (11) Elevated liver transaminase level: Likely secondary to Covid-19 viral infection Repeat in am (12) Mediastinal lymphadenopathy: Noted on CT scan of the neck here Review of stroke neurology notes shows that this was detected on scans at [facility] as well and there are plans for repeat CT of the chest in 11/2020 Thought to be reactive as per their notes Repeat imaging later this year (13) COPD (chronic obstructive pulmonary disease): Cont inhalers, pulmonary toilet, [place] O2, prednisone (14) Acute kidney injury: improving BMP in am JAZIEL likely 2nd to COVID-19 (15) DVT prophylaxis: Lovenox 40mg BID due to high risk of VTE in setting of COVID-19 strongly consider once daily xarelto low-dose at discharge x 1 month due to hypercoagulability state updated by phone this evening once again home tomorrow ?? Admission and Anticipated Discharge Date Admission Date: June 22, 2020 Subjective patient feeling well mild cough but no production of sputum no LESTER O2 has been on/off throughout the day during my visit he was requiring 2 L with sats low 90s eating well feels good overall visual loss right eye unchanged vision left eye Review of Systems Constitutional: no fever, no chills and no body aches Respiratory: no dyspnea Cardiovascular: no chest pain Gastrointestinal: no abdominal pain, no vomiting and no diarrhea/loose stools Physical Exam Constitutional: no acute distress and no altered mental status Eyes: central visual field cut unchanged right eye; mild nasal mid-visual field cut also unchanged; lateral visual field intact as previous ENMT: external ear and nose normal, oropharynx normal Respiratory: no respiratory distress Auscultation: + crackles (bases - b/l - mild); no wheezes Cardiovascular: Rate/Rhythm: regular rate and regular rhythm Heart Sounds: normal S1 and normal S2; no murmur Vessels: posterior tibial pulses present and dorsalis pedis pulses present; no JVD Extremities: no edema Gastrointestinal (Abdomen): normal bowel sounds, soft, nontender, no hepatosplenomegaly Psychiatric: Orientation: alert and oriented x 3 Results & Data Results & Data ([facility]) Vital Signs (Past 12 Hours) Vital Signs Temp Pulse Pulse Resp BP Pulse Ox 06/25/20 04:37 36.6 C 48 L 19 131/80 98 06/25/20 00:00 50 L 06/24/20 23:57 36.5 C 57 L 17 135/75 90 06/24/20 19:50 36.6 C 57 L 20 121/73 90 Cr 1.3 CTA chest - NO PE; b/l airspace opacities c/w pneumonia PG Care Time/CCT Total # of Minutes Spent Total Time Spent with Patient: Total time spent is greater than 50% in coordination of care (as documented) at patient's floor/unit and/or counseling patient: Coding Level of Care Code 79744 Subseq Hosp Care Lvl 3 Diagnoses Pneumonia due to 2019 novel coronavirus U07.1; J12.82 Acute respiratory failure with hypoxia J96.01 Vision loss, right eye H54.61 Hyperlipidemia E78.5 Hyperlipidemia type: unspecified Stroke-like symptoms R29.90 Carotid artery stenosis I65.22 Laterality: left Hypokalemia E87.6 Diabetes mellitus type 2, uncontrolled E11.65 Glycemic state: with hyperglycemia Hyperhomocysteinemia E72.11 Hyponatremia E87.1 Elevated liver transaminase level R74.01 Mediastinal lymphadenopathy R59.0 COPD (chronic obstructive pulmonary disease) J44.9 COPD type: unspecified COPD Acute kidney injury N17.9 DVT prophylaxis Z29.9 (1) Hyperlipidemia Hyperlipidemia type: unspecified Qualified Code(s): E78.5 - Hyperlipidemia, unspecified (2) Carotid artery stenosis Laterality: left Qualified Code(s): I65.22 - Occlusion and stenosis of left carotid artery (3) Diabetes mellitus type 2, uncontrolled Glycemic state: with hyperglycemia Qualified Code(s): E11.65 - Type 2 diabetes mellitus with hyperglycemia (4) COPD (chronic obstructive pulmonary disease) COPD type: unspecified COPD Qualified Code(s): J44.9 - Chronic obstructive pulmonary disease, unspecified
[2020-06-25] MEDS: FOLIC ACID 1 MG TAB PO SCH (08:25)
[2020-06-25] MEDS: CLOPIDOGREL BISULFATE 75 MG TAB PO SCH (08:25)
[2020-06-25] MEDS: ASPIRIN 81 MG ECTAB PO SCH (08:25)
[2020-06-25] MEDS: ENOXAPARIN INJ 40 MG/0.4 ML SYR SQ SCH (08:25)
[2020-06-25] MEDS: ATORVASTATIN 40 MG TAB PO SCH (08:26)
[2020-06-25] MEDS: FLUTICASONE/VILANTEROL 100/25MCG 14 PUFFS/INHALER INH SCH (08:26)
[2020-06-25] MEDS: dexAMETHasone 6 MG in SYRINGE 0 ML IV SCH (08:26)
[2020-06-25] MEDS: ESCITALOPRAM OXALATE 10 MG TAB PO SCH (08:26)
[2020-06-25 08:37] LABS: Alanine Aminotransferase 157 U/L (12-78); Aspartate Aminotransferase 102 U/L (15-37)
[2020-06-25] MEDS: INSULIN GLARGINE SOLOSTAR 100 UNITS/ML 3 ML PEN SC SCH (09:07)
[2020-06-25] MEDS: INSULIN ASPART 100 UNITS/ML 3 ML PEN SC SCH ×2 (09:08→12:57)
[2020-06-25] MEDS ORDERED: STROKE PATIENT DISCHARGE STA (14:34)
--- NOTE | 2020-06-25 14:58 | Discharge Summary ---
Date of Service date of admission - June 22, 2020 date of discharge - June 25, 2020 Admission HPI Per Admitting Provider 69 YO male with history of CVA, TIA, COPD, DMII, HTN, right-sided CEA, Carotid stenosis, and hyperlipidemia who comes to the ER today for complaints of "puzzle piece vision". The patient is COVID (+) and is by his accounts ~2 weeks into his course of his illness and has been manageable at home. He did get a COVID test last week at an urgent care, test was repeated today in the ER and remains COVID (+). The patient endorses that this vision effect is the same that he was having post CEA and CVA in MAR 2019- and when they "brought his blood pressure down it went back to normal" and he has not had vision changes since. His vision change is painless, monocular to the right eye, and nasal hemianopsia. He is on high dose statin and monotherapy with Plavix. The patient is currently at his baseline BP and hemodynamics. He had a CT of the head and CTA of the head and neck in the EMD. The patient is not hypoxic on room air. The patient's blood work is notable for an increase in his LFT's, platelet count to 407 which he is normally 180-170 and elevation in CRP, ESR his fibrinogen and LDH are normal. Patient will be admitted for further workup, MRI of the head and symptom control. Principal Diagnosis 1. COVID-19 pneumonia 2. Right eye vision loss - suspected retinal artery branch occlusion Discharge Exam Constitutional no acute distress and no altered mental status Eyes PERRL central visual field loss, right eye - unchanged. lateral visual field intact. nasal visual field loss, also unchanged. left eye visual rubalcava full. ENMT external ear and nose normal, oropharynx normal Respiratory no respiratory distress Auscultation: + crackles (bases - b/l - mild); no wheezes Cardiovascular Rate/Rhythm: regular rate and regular rhythm Heart Sounds: normal S1 and normal S2; no murmur Vessels: posterior tibial pulses present and dorsalis pedis pulses present; no JVD Extremities: no edema Gastrointestinal (Abdomen) normal bowel sounds, soft, nontender, no hepatosplenomegaly Psychiatric Orientation: alert and oriented x 3 Discharge Data Allergies Allergy/AdvReac Type Severity Reaction Status Date / Time No Known Allergies Allergy Unverified 06/22/20 12:06 Consultations [facility] Neurology - Eugenio Pedraza MD PT, OT, Speech Ordered Studies 06/22/20 11:18 CT angio head w con Stat CT angio neck with con Stat IMPRESSION: 1. CTA of the head and neck demonstrates no acute abnormality. 2. Prior right carotid endarterectomy. The previously questioned short segment dissection of the right carotid bulb is no longer appreciated. 3. Atheromatous plaque of the left carotid bulb and proximal left ICA is unchanged again resulting in approximately 60% luminal narrowing of the proximal cervical segment left ICA. 4. Biapical pulmonary opacities are suggestive of multifocal likely viral pneumonia. 5. Unchanged pathologic lymph nodes of the upper mediastinum. 06/22/20 11:18 CT head/brain wo con Stat IMPRESSION: No acute intracranial abnormality. 06/22/20 16:50 MR brain wo/w con Urgent IMPRESSION: 1. No acute intracranial findings 2. No evidence of acute or subacute infarction 3. No evidence of intracranial mass 4. Moderate white matter disease similar to the preceding study and likely on a small vessel ischemic basis 06/24/20 08:14 CT angio chest w con Routine IMPRESSION: 1. No pulmonary emboli. 2. Subpleural predominant bilateral groundglass and alveolar opacities compatible with multifocal pneumonia, likely viral etiology. 3. Numerous enlarged mediastinal and hilar lymph nodes, likely reactive. 4. Cardiomegaly with moderate coronary artery calcifications. Echocardiogram: * EF 60-65% * mild LVH * no regional wall motion abnormalities * mild mitral regurgitation * no ASD; could not assess for PFO * no thrombus Hospital Course (1) Pneumonia due to 2019 novel coronavirus: Was stable on small amount of NC O2 during his stay. Received decadron 6mg daily for 4 days and will complete 6 more days at home. He was out of the treatment window to receive convalescent plasma or remdesivir. He had no evidence of complicating CHF or bacterial pneumonia. CTA chest was negative for PE. A two-step ambulatory O2 test on day of discharge demonstrated an oxygen requ irement of 2 liters NC O2 with AMBULATION ONLY. He was advised to continue pulmonary toilet at home with self-proning, flutter valve, and incentive spirometry for another 1-2 weeks if possible. (2) Acute respiratory failure with hypoxia: 2nd COVID-19 pneumonia in the setting of COPD. See above in "COVID-19 pneumonia." (3) Vision loss, right eye: Suspected retinal artery branch occlusion per [facility] neurology. MRI brain did NOT demonstrate any occipital lobe stroke. Echo did not show any thrombus. In light of his COVID-19 illness we suspected that COVID-induced hypercoagulability may have led to this stroke. I spoke with the patient's primary setter cold rolling machine, Dr Geovanny Hill, who will see Mr Cooper in the office for full eye exam shortly after discharge. From the ophthalmology standpoint there was no contraindication to use of low- dose xarelto at discharge (see below for discussion). Patient had NO symptoms to suggest temporal arteritis. Elevated sed rate/crp were likely due to the COVID-19 infection itself. Visual field testing during his stay did not change - a central/nasal visual field cut was present in the right eye the entire stay. Lastly, he was continued on his plavix and lipitor as previous. (4) Hyperlipidemia: Continue lipitor 40mg daily. LDL 35 on lipid profile. (5) Stroke-like symptoms: MRI w/o occipital lobe stroke. Stroke was felt to be in the right eye itself (suspected retinal artery branch occlusion). See discussion above. (6) Carotid artery stenosis: Left carotid stenosis 60% and right CEA performed 2020. Right carotid remains patent. Continue Statin and Plavix. (7) Hypokalemia: Repleted during his stay. In light of chronic HCTZ use I prescribed 10meq of KCL at discharge for chronic use. (8) Diabetes mellitus type 2, uncontrolled: Pharmacy glycemic team managed his DM while hospitalized. At discharge he will need to HOLD his metformin due to CT contrast usage. He was given a script for a repeat BMP to be obtained within 48 hours of discharge. Metformin can be resumed as an outpatient if Creatinine is stable on that repeat BMP. (9) Hyperhomocysteinemia: History of such. Remains on folic acid 2.5 mg once daily. Homocysteine level returned high at 17.4. He was prescribed the following in addition to folic acid - * vitamin B6 (pyridoxine) 50mg daily * vitamin B12 1000mcg daily Certainly his high homocysteine level will contribute to heightened stroke risk. (10) Hyponatremia: resolved 132 at admission, improving to 142 at discharge (11) Elevated liver transaminase level: Likely secondary to Covid-19 viral infection Remained mildly high his entire stay Will need repeat ast/alt as an outpatient to ensure normalization (12) Mediastinal lymphadenopathy: Noted on CT scan of the neck. Review of stroke neurology notes shows that this was detected on scans at [place] as well and there are plans for repeat CT of the chest in 11/2020. Thought to be reactive. Will need repeat imaging later this year. (13) COPD (chronic obstructive pulmonary disease): Cont inhalers, pulmonary toilet, NC O2, steroids at discharge. See above. (14) Acute kidney injury: JAZIEL likely 2nd to COVID-19 Highest Cr 1.6 Discharge Cr 1.2 (15) Bradycardia: Patient had asymptomatic episodes of bradycardia noted during sleep as well as during the daytime while hospitalized. He is on no AV nadya agents. He follows with Dr Sushant Yusuf of [facility] Cardiology. Dr Yusuf was made aware of this issue and he will have f/u with Dr Yusuf shortly after discharge. Outpatient monitoring may be pursued. (16) DVT prophylaxis: Lovenox was used while hospitalized for VTE prevention. Patient is at high risk of VTE given his COVID infection, homocysteinemia, and concurrent stroke. Thus, we recommended low-dose Xarelto 10mg daily at discharge x 1 month due to hypercoagulable state. He received a 28-day supply of samples for such. Total Time Total Time Spent Total Time Spent (In Minutes): 60 Total Time Includes: Examination of the Patient, Discharge Planning, Medication Reconciliation and Communication With Other Providers Discharge Plan Discharge Items Patient Disposition: Home - Self-Care Reason For Visit: COVID-19 Pneumonia; Right eye vision loss Discharge Diagnosis: 1. Right eye visual loss due to stroke in the eye itself; MRI of the brain was normal. COVID-19 may have contributed to the right eye stroke. 2. COVID-19 pneumonia. 3. abnormal liver function tests - likely due to COVID-19 infection. 4. slow heart rates at times - Dr Yusuf to follow-up with you in the clinic for this. Condition on Discharge: Good Activity: As commented below Activity Comment: gradually increase your activities over the next 1-2 weeks as tolerated Sexual Activity: Wait until after follow-up appointment Exercise/Sports: Wait until after follow-up appointment Non-emergency contact: Primary Care Provider, Regional Forester and Director Data Management Call non-emergency contact if: you have any medication questions and your symptoms worsen Follow-up/Referrals: Leonid Yusuf MD [Physician] - 07/05/20 10:00 am (please see Dr Yusuf in 1-2 weeks ) Eugenio Pedraza MD [Physician] - 09/05/20 1:00 pm (follow-up 1 month) Jb Coronel III, MD [Primary Care Provider] - 06/29/20 8:30 am (please schedule a "virtual" (telehealth) visit with Dr Coronel within 1 week) Geovanny Hill MD [Physician] - 07/17/20 3:00 pm (see Dr Hill THIS WEEK for your right eye vision loss) Diet: Carb Consistent or DM2 and Heart Healthy Ambulatory Orders: Basic Metabolic Panel (Routine) Timeframe: 20200626 Location: Determined by Patient Ordered By: Kenney Flannery Attending Provider Instructions: Mr Cooper - You were treated for COVID-19 pneumonia with steroids and oxygen. You also had right eye visual loss. Dr Pedraza from [facility] saw you in consult and it was felt that you had a stroke in a small artery in the eye itself. Your MRI of the brain was normal. It is likely that your blood is "thick" as a result of your COVID-19 infection which increases your risk of b lood clots. Unfortunately it is suspected that a small blood clot went to the right eye. In addition to the above we noticed that your heart rate sometimes goes low. We saw this on the heart monitor. Dr Yusuf was notified of this and will follow-up with you in his office for additional tests. Recommendations - 1. for your COVID-19 pneumonia - * take dexamethasone steroid -- 6mg daily for 6 more days. Start tomorrow morning, 06/26/20. Take with food. * ok to take [id number] mucinex up to 1200mg twice a day as needed for cough * oxygen -- 2 liters with sleep and with activities; be sure to take the oxygen with you when you leave your home. Ok to take the oxygen off when you are sitting/not active. * keep using the flutter valve and incentive spirometry devices over the next 7- 10 days as your lungs recover 2. to prevent blood clots in your legs and lungs - * we have given you 28 tablets of Xarelto * take 1 tablet (10mg) once daily for 28 days starting 06/26/20 * this is a BLOOD THINNER; this medication does increase the risk of bleeding from your bladder, your gastrointestinal tract, your skin (bruising, etc), etc 3. blood pressure pills - * please CUT in half your hydrochlorothiazide tablet from 25mg to 12.5mg daily * take a potassium supplement once a day 4. diabetes - * you will have to HOLD your metformin for now * obtain a blood draw on 06/26/20 * give the lab slip to the lab when you get your blood drawn * if the blood work is normal you will be able to resume your metformin; wait for the results before restarting the metformin * know that that dexamethasone steroid will increase your blood sugars 5. it is unlikely that you are contagious to others at this time. 10 days have gone by since your symptoms started, you are improving, and you have had no fever in quite some time. Technically you do not need to quarantine yourself at home any longer but as you recover please limit trips out of your home (limit trips to doctor visits, etc). 6. wear a mask any time you leave your home. 7. in a few months talk to Dr Coronel about obtaining the COVID-19 vaccine. 8. please see Dr Hill in the next few days for your right eye. Follow-up -- see separate section Return to [facility] if -- * you have worsening shortness of breath or chest pain * you have recurrent fevers over 100.5 degrees * you have bleeding from your rectum, bladder, nose, etc * you have new stroke symptoms (worsening vision, weakness in an arm or leg, difficulty speaking or swallowing, etc) * any other concerns Continue to feel better! -Dr Ned Holdertl Lens Molding Equipment Operator Provider Instructions: Risk Factors for Stroke: You can reduce your chances of stroke by working with your medical provider to adopt a healthy lifestyle. Some specific ways to lower your chance of stroke are: * If you are a smoker, now is the time to stop smoking cigarettes * If you are diabetic, improve the control of your blood sugars * Avoid excessive amounts of alcohol * Control high blood pressure * Lose weight if you are overweight * Be sure to lead an active lifestyle * Eat a healthy diet low in salt, cholesterol and fat You should know about other risk factors for stroke that you are unable to control. These include: * Age 55 years or older * Male gender * Certain racial groups: , or / * Family History of Stroke, Mini stroke or Heart Attack * Sickle Cell Disease Who to Call and When: Medical Emergencies: Call 911 immediately if you experience any of the following warning signs and symptoms of Stroke: * Sudden numbness or weakness of the face, arm or leg, especially on one side of the body * Sudden confusion, trouble speaking or understanding * Sudden trouble seeing in one or both eyes * Sudden trouble walking, dizziness, loss of balance or coordination * Sudden severe headache with no cause Do not delay calling 911 if you experience any warning signs or symptoms of a stroke. Delay in seeking medical attention may affect what treatments can be given to you. . Pending Studies at Discharge: No Stand-Alone Forms: Medications to Prevent Stroke, My [facility], Smoking Cessation Medications and DC Order Prescriptions: New Xarelto 10 mg tablet 10 mg PO DAILY Qty: 30 RF: 0 (DME) Oxygen Home Liters Per Minute 1 ea .Route .ambulation Qty: 1 RF: 0 potassium chloride 10 mEq tablet extended release 10 meq PO DAILY Qty: 30 RF: 2 dexamethasone 6 mg tablet 6 mg PO DAILY 6 Days Qty: 6 RF: 0 pyridoxine (vitamin B6) 50 mg tablet 50 mg PO DAILY Qty: 90 RF: 3 cyanocobalamin (vitamin B-12) 1,000 mcg capsule 1,000 mcg PO DAILY Qty: 90 RF: 3 Continued atorvastatin 40 mg tablet 40 mg PO DAILY Qty: 90 RF: 3 clopidogrel 75 mg tablet 75 mg PO QAM Qty: 90 RF: 3 losartan 50 mg tablet 50 mg PO DAILY Qty: 90 RF: 3 fluticasone propion-salmeterol 100-50 mcg/dose blister with device 1 inh inhalation BID Qty: 60 RF: 5 (DME) OneTouch Ultra Blue Test Strip Strip See Rx Instructions .ROUTE .MEDSUPPLY Qty: 100 RF: 3 folic acid 1 mg tablet 2.5 mg PO QAM 90 Days Qty: 225 RF: 3 escitalopram oxalate 20 mg tablet 10 mg PO DAILY RF: 0 Discontinued hydrochlorothiazide 25 mg tablet 25 mg PO DAILY Qty: 90 RF: 3 metformin 500 mg tablet 500 mg PO BID Qty: 180 RF: 3 No Action metformin 500 mg tablet 500 mg PO BID Qty: 180 RF: 3 hydrochlorothiazide 25 mg tablet 25 mg PO DAILY Qty: 90 RF: 3 Discharge Orders: Discharge Order (Routine); Ordered 06/25/20 Ordered By: Kenney Kothari/Other Patient Handouts: 2019-nCoV, COVID-19 Home Care, Managing Type 2 Diabetes, Symptoms of Stroke, Managing Diabetes: The A1C Test, Rivaroxaban oral tablets, Disinfecting Your Home of COVID-19 Admission Data Admit Date/Time: 06/22/20 16:25 Attending Provider: Kenney Marino Admit Provider: Constanza Dorantes Primary Care Provider: Jb Coronel III Other Providers: Constanza Dorantes ; Eugenio Pedraza Other Interventions: Discharge Summary Assessment (RN) Last Done: 06/25/20 13:34 Coding Level of Care Code D/C Day Management >30 mins Diagnoses Pneumonia due to 2019 novel coronavirus U07.1; J12.82 Acute respiratory failure with hypoxia J96.01 Vision loss, right eye H54.61 Hyperlipidemia E78.5 Hyperlipidemia type: unspecified Stroke-like symptoms R29.90 Carotid artery stenosis I65.22 Laterality: left Hypokalemia E87.6 Diabetes mellitus type 2, uncontrolled E11.65 Glycemic state: with hyperglycemia Hyperhomocysteinemia E72.11 Hyponatremia E87.1 Elevated liver transaminase level R74.01 Mediastinal lymphadenopathy R59.0 COPD (chronic obstructive pulmonary disease) J44.9 COPD type: unspecified COPD Acute kidney injury N17.9 Bradycardia R00.1 DVT prophylaxis Z29.9
--- NOTE | 2020-06-25 15:33 | Pharmacy Report ---
Pharmacist Stroke Counseling - Date of Service June 25, 2020 - Scope: Pharmacy has been consulted to provide medication discharge counseling for this patient admitted with [ischemic stroke] [hemorrhagic stroke] [transient ischemic attack] as per the Pharmacist Discharge Counseling for Stroke Patients Protoc . - Medications on Discharge: Home Medications Medication Instructions Recorded Confirmed escitalopram oxalate 10 mg PO DAILY 06/22/20 06/22/20 New Rx's Medication Instructions Recorded atorvastatin 40 mg tablet 40 mg PO DAILY #90 tab 04/18/20 clopidogrel 75 mg tablet 75 mg PO QAM #90 tab 04/18/20 hydrochlorothiazide 25 mg tablet 25 mg PO DAILY #90 tab 04/18/20 losartan 50 mg tablet 50 mg PO DAILY #90 tab 04/18/20 metformin 500 mg tablet 500 mg PO BID #180 tab 04/18/20 fluticasone 100 mcg-salmeterol 50 1 inh INHALATION BID #60 ea 04/20/20 mcg/dose blistr powdr for inhalation blood sugar diagnostic #100 ea 05/23/20 folic acid 1 mg tablet 2.5 mg PO QAM 90 Days #225 tab 06/13/20 Oxygen Home #1 ea 06/25/20 dexamethasone 6 mg PO DAILY 6 Days #6 tab 06/25/20 potassium chloride 10 meq PO DAILY #30 tab 06/25/20 rivaroxaban [Xarelto] 10 mg PO DAILY #30 tab 06/25/20 - Action: The above medications, specifically ones for stroke treatment/prophylaxis, have been reviewed in detail with the patient and/or patient commercial sales representative(s) prior to discharge. This includes indication, common adverse reactions, drug interactions, and medication administration. Medication counseling has been employed using the teach-back method to ensure understanding. - Outcome: The patient and/or patient commercial sales representative(s) have demonstrated understanding of the medications. Additional comments: counseling completed via telephone patient had an opportunity to have all questions answered Thank you for allowing pharmacy to be involved in the care of this patient. Please call [phone] with any additional questions
--- NOTE | 2020-06-26 14:41 | XCELERA ---
[id number]
== END 2020-06-25 16:45 | disposition home or self-care (01) | DRG 177 ==
LOC: ED 10:54 → 2S 16:25 → SUATTDRO 16:25 → 2S 17:31

== ENCOUNTER 2024-03-21 04:04 | Inpatient (IN) ==
--- NOTE | 2024-03-21 04:16 | Emergency Department Note ---
Impression & Plan Dizziness, Complaint of paresthesia ED Provider Note NAME: CALOS LUCAS AGE: 73 SEX: M : 1950 ARRIVES VIA: Ambulance INFORMANT: Patient ED PROVIDER(S): Fred Mcclure DO CHIEF COMPLAINT: Left-sided numbness HPI: Patient is a 73-year-old male with a past medical history of hypertension, diabetes, CVA, carotic endarterectomy, COPD and a smoker who presents to the ER for left-sided numbness that started around 3 PM yesterday. He denies any weakness. No headache or change in vision. No chest pain or shortness of breath. He got up this morning and around 3:00 this morning he noticed that he was dizzy and this in combination with the numbness made him concerned that he was having a stroke again and consequently called EMS. ADDITIONAL HISTORY OBTAINED: Per HPI Chronic Medical/Social Conditions Affecting Care: Per HPI PAST MEDICAL HISTORY:See Below PAST SURGICAL HISTORY:See Below FAMILY HISTORY:See Below SOCIAL HISTORY:See Below HOME MEDICATIONS:See Below ALLERGIES:See Below VITALS:See Below PHYSICAL EXAMINATION: GENERAL: Sitting up in bed, alert, well appearing, well nourished, no distress, non-toxic EYE EXAM: normal conjunctiva. PERRL and EOM's intact. OROPHARYNX: no exudate, no erythema, lips, buccal mucosa, and tongue normal and mucous membranes are moist NECK: supple, no nuchal rigidity, no adenopathy, non-tender LUNGS: Clear to auscultation. Normal chest wall mechanics HEART: no murmurs, S1 normal and S2 normal ABDOMEN: abdomen soft, non-tender, normo-active bowel sounds, no masses, no rebound or guarding. BACK: Back is symmetrical on inspection and there is no deformity, no midline tenderness, no CVA tenderness. SKIN: no rashes and no bruising UPPER EXTREMITIES: upper extremities are grossly normal. LOWER EXTREMITIES: No pitting edema. NEURO EXAM: Normal sensorium, cranial nerves II-XII intact, normal speech, no weakness of arms, no weakness of legs. No drift. Finger to nose intact. Gross sensation intact. MEDICAL DECISION MAKING: Patient is a 73-year-old male who presents ER for above-stated complaint. IV was established and blood work was obtained. Labs showed a mild leukocytosis of 12,000. No significant anemia. INR unremarkable. BMP along with LFTs, bilirubin, troponin and magnesium were unremarkable. Patient was out of the window for TNK. Discussed with [facility] telestroke neurology they recommended based on his presentation loading with aspirin and admission for complete workup. Patient is not a TNK candidate at this time due to time of onset. CT angios of the head and neck showed no acute pathology. Patient was updated at bedside and discussed with the hospitalist for further evaluation management treatment. He was given aspirin while in the ER. Consults/Care Managements Discussions: Per [facility] Triage Nursing notes reviewed. Limited review of prior medical records performed Vital Signs: reviewed and remarkable for no significant abnormalities Differential diagnosis: Differential Diagnosis includes but is not limited to ischemic Stroke, hemorrhagic stroke, bells palsy, mass, neoplasm, migraine headache, seizure, subarachnoid hemorrhage, TIA, and transient global amnesia. ER treatment provided: See below Diagnostics interpreted by me include EKG and cardiac monitoring as listed below: -Cardiac Monitoring: An order was placed for continuous cardiac monitoring. The monitor shows a rate of 70 with sinus rhythm. -ECG: Sinus rhythm rate of 72 Normal axis No PVCs QTc 457 First-degree AV block -Laboratory studies:Interpreted by me as stated above in MDM and shown below. 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 Cigarette smoker Screening for lung cancer COPD (chronic obstructive pulmonary disease) Leukocytosis (Chronic) DM (diabetes mellitus) type II, controlled, with peripheral vascular disorder Ischemic optic neuropathy of right eye Cerebrovascular disease Hypercholesterolemia Hyperhomocystinemia Bradycardia 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, 2019 CTA, small incomplete focal carotid bifurcation dissection following right carotid endarterectomy Diabetes mellitus type 2, uncontrolled Hyperlipidemia Surgical History History of cholecystectomy Family History Father Myocardial infarction Father COPD (chronic obstructive pulmonary disease) Coronary heart disease Diabetes Family/Other Stroke FH: deafness or hearing loss Mother Stroke Brother Bladder cancer Denies family history of Ovarian cancer Prostate cancer Breast cancer Colorectal cancer Social History (Updated 03/09/24 @ 07:54 by HUGO Pacheco) Smoking Status: Never smoker Tobacco Type: Cigarettes Age Started Using Tobacco: 16; packs per day: 1; Cigarettes Per Day: 1ppd; Second Hand Exposure: Yes; Do You Dip or Chew Tobacco: No; Hx Alcohol Use: No Hx Substance Use: No Preferred Language: Mohawk Communication Ability: Effective Visual Impairment: No Limitations Hearing Ability: Use of Hearing Aid Wetland Scientist Required: No Beliefs That Will Affect Care: None marital status: Current Living Situation: Spouse current occupational status: retired current occupation: He is still driving truck with [employer] Feels Safe at Home: Yes Childhood Exposure to Second-Hand Smoke: Yes Diet: regular caffeine: No Dental Care, Regularly: Yes Physical Activity Frequency: Does not Exercise Seatbelt Use: always Sunscreen Use: No Assistive Devices: Oxygen - Continuous Allergies Allergies Allergy/AdvReac Type Severity Reaction Status Date / Time No Known Allergies Allergy Verified 03/09/24 07:49 Home Meds Previous Rx's Medication Instructions Recorded budesonide-formoterol HFA 80 1 inh inhalation BID #10.2 grams 05/03/22 mcg-4.5 mcg/actuation aerosol inhaler (Symbicort) cyanocobalamin (vitamin B-12) 1,000 mcg PO DAILY #90 caps 09/05/23 1,000 mcg capsule fluticasone 100 mcg-salmeterol 50 1 inh inhalation BID #180 ea 09/05/23 mcg/dose blistr powdr for inhalation pyridoxine (vitamin B6) 50 mg 50 mg PO DAILY #90 tabs 09/05/23 tablet atorvastatin 40 mg tablet 40 mg PO DAILY #90 tabs 02/25/24 hydrochlorothiazide 25 mg tablet 25 mg PO DAILY #90 tabs 02/25/24 clopidogrel 75 mg tablet 75 mg PO QAM #90 tabs 03/09/24 folic acid 1 mg tablet 2.5 mg (2.5 x 1 mg) PO QAM 90 days 03/09/24 #225 tabs losartan 50 mg tablet 50 mg PO DAILY #90 tabs 03/09/24 metformin 500 mg tablet 1,000 mg (2 x 500 mg) PO BID #360 03/09/24 tabs pioglitazone 15 mg tablet 15 mg PO DAILY #90 tabs 03/09/24 potassium chloride 10 mEq 10 meq PO DAILY #90 tabs 03/09/24 tablet,extended release blood sugar diagnostic (OneTouch #100 ea 03/18/24 Ultra Test strips) Results & Data (ED) Vital Signs Vital Signs - 24 hr 03/21/24 03:51 03/21/24 04:20 Temperature 36.9 C Temperature Source Oral Pulse Rate 69 70 Pulse Rhythm Regular Pulse Strength Normal Respiratory Rate 22 Respiratory Effort / Characteristics Non-Labored Spontaneous Respiratory Depth Normal Respiratory Pattern Regular Blood Pressure 153/88 H Blood Pressure Mean 109 Blood Pressure Position Lying Pulse Oximetry 91 Oxygen Delivery Method Room Air Sepsis Recent Fever Within 48 Hours No Sepsis New/Unexplained Change in Mental Status No Sepsis Action Taken by Nursing No Action Required Laboratory Data 03/21/24 03:57 03/21/24 03:57 Lab Results 03/21/24 Range/Units 03:57 WBC 12.12 H (4.8-10.8) K/ul RBC 5.14 (4.70-6.10) M/uL Hgb 16.3 (14.0-18.0) g/dl Hct 47.6 (42.0-52.0) % MCV 92.6 (80.0-100.0) fL MCH 31.7 (25.0-34.0) pg MCHC 34.2 (32.0-36.0) g/dL RDW Std Deviation 46.0 (36.4-46.3) fL RDW Coeff of Doming[place] 13.4 (11.5-14.5) % Plt Count 184 (130-400) K/uL MPV 12.6 H (9.4-12.4) fL Immature Gran % (Auto) 0.2 % Neut % (Auto) 52.2 % Lymph % (Auto) 36.4 % [place] % (Auto) 7.4 % Eos % (Auto) 2.9 % Baso % (Auto) 0.9 % Neut # (Auto) 6.32 (1.40-6.50) K/uL Lymph # (Auto) 4.41 H (1.20-3.40) K/uL [place] # (Auto) 0.90 H (0.11-0.59) K/uL Eos # (Auto) 0.35 (0.00-0.50) K/uL Baso # (Auto) 0.11 (0.00-0.20) K/uL Immature Gran # (Auto) 0.03 (0.01-0.20) K/uL PT 10.6 (9.0-12.0) Seconds INR 1.0 (0.9-1.1) APTT 29 (21-31) Seconds PTT Ratio 1.1 Sodium 137 (136-145) mmol/L Potassium 3.8 (3.5-5.1) mmol/L Chloride 104 (98-107) mmol/L Carbon Dioxide 22 (21-32) mmol/L Anion Gap 11 (3-11) BUN 18 (6-23) mg/dl Creatinine 1.13 (0.6-1.4) mg/dl Est Cr Clr Drug Dosing 74.3 ml/min eGFR 69.06 BUN/Creatinine Ratio 15.9 (10-20) Glucose 107 H (70-99(Fasting)) mg/dl Calcium 9.5 (8.6-10.3) mg/dl Magnesium 1.7 (1.7-2.4) mg/dl Total Bilirubin 0.6 (0.2-1.0) mg/dl AST 28 (13-39) U/L ALT 30 (7-52) U/L Alkaline Phosphatase 76 (34-104) U/L Troponin I High Sens 7.0 (0-20) pg/ml Total Protein 7.5 (6.0-8.3) gm/dl Albumin 4.1 (3.4-5.0) gm/dl Globulin 3.4 (2.5-4.0) gm/dl Albumin/Globulin Ratio 1.2 (0.9-2) Administered Medications Discontinued Medications Aspirin (Aspirin Chew 324 Mg) 324 mg PO NOW STA Stop: 03/21/24 04:22 Last Admin: 03/21/24 04:30 Dose: 324 mg Documented By: DANIELLA Ioversol (Optiray 320 125ml) 116 ml IV ONCE ONE Stop: 03/21/24 04:18 Last Admin: 03/21/24 04:17 Dose: 116 ml Documented By: [facility] Imaging Data Radiologist's Impression: Head CT 03/21/24 03:57 EXAM: CT head/brain wo con CLINICAL HISTORY: neuro deficit, acute stroke suspected TECHNIQUE: Axial noncontrast CT scan of the brain was performed from the skull base to the high parietal region. One of the following dose reduction techniques were utilized for this exam: Automated exposure control, adjustment of the mA and/or kV according to patient size, use of iterative reconstruction. COMPARISON: 06/22/2020. FINDINGS: A left frontal small hypodense area of chronic infarction is noted. Sepulveda-white matter differentiation is maintained. Prominent ventricular system and extra-axial CSF spaces are suggestive of age-related involutional changes. No midline shifts or deformity. No intracerebral or extra axial hematoma. Normal CT appearance of the posterior fossa structures namely the cerebellar hemispheres, brainstem and cerebellar peduncles. The cerebello-pontine angles are clear. The osseous structures in the skull base are unremarkable. No definite calvarium fractures. Scanned paranasal sinuses are clear. IMPRESSION: 1. No evidence of established infarction, intracranial or extracranial hemorrhage. Early changes of stroke may not be detected on a CT scan. If strong clinical suspicion of stroke then suggest MRI with diffusion-weighted imaging. 2. Left frontal old lacunar infarction. 3. Appropriate age-related involutional changes. 4. No significant interval changes from the previous study. Electronically signed by Carmela Lipscomb 03-21-2024 04:46 AM Head CTA 03/21/24 03:57 EXAM: CT angio head w con CLINICAL HISTORY: neuro deficit, acute stroke suspected 116 cc opti 320 TECHNIQUE: Axial CT angiography of the head was done with 116 cc opti 320 IV contrast and sagittal and coronal reformats with MIP reconstructions. One of these 3D techniques was utilized: Maximum Intensity Pixel (MIP), 3D Reconstructed Images, Volume Rendered Images, Surface Shaded Rendering. One of the following dose reduction techniques were utilized for this exam: Automated exposure control, adjustment of the mA and/or kV according to patient size, and use of iterative reconstruction. One of the following dose reduction techniques was utilized for this exam.Automated exposure control, adjustment of the mA and/or kV according to patient size, and use of iterative reconstruction. COMPARISON: None. FINDINGS: Intracranial Arteries: The intracranial portions of the internal carotid arteries, anterior cerebral arteries, middle cerebral arteries, posterior cerebral arteries, basilar artery, and vertebral arteries are well-opacified. No evidence of aneurysm, stenosis, or occlusion. Mild is subsequently calcification noted. [place]: The [place] is complete. Normal caliber of the communicating arteries. No vascular malformations or aneurysms. Venous Structures: Normal opacification of the major dural venous sinuses. No evidence of venous sinus thrombosis. Brain Parenchyma: Normal attenuation of the cerebral hemispheres, cerebellum, and brainstem. No evidence of acute infarct, hemorrhage, or mass effect. Skull and Meninges: Normal appearance of the skull. No evidence of meningeal enhancement or thickening. Orbits: Normal appearance of the globes, optic nerves, and extraocular muscles. No evidence of orbital masses or abnormal signal. IMPRESSION: No evidence of significant vascular abnormalities. Electronically signed by Carmela Lipscomb 03-21-2024 04:49 AM Neck CTA 03/21/24 03:57 EXAM: CT angio neck with con CLINICAL HISTORY: neuro deficit, acute stroke suspected 116 cc opti 320 TECHNIQUE: CT angiography study of the neck vessels with 116 cc opti 320 IV contrast was performed and multiple axial sections were obtained with coronal and sagittal reconstructions. One of the following dose reduction techniques were utilized for this exam: Automated exposure control, adjustment of the mA and/or kV according to patient size, and use of iterative reconstruction. One of these 3D techniques was utilized: Maximum Intensity Pixel (MIP), 3D Reconstructed Images, Volume Rendered Images, Surface Shaded Rendering. COMPARISON: None. FINDINGS: Carotid Arteries: Atherosclerotic calcification at bilateral internal carotid arteries bulb causing stenosis of about 48% at the left side and 43% at the right side. Otherwise, common carotid arteries, internal carotid arteries, and external carotid arteries bilaterally are well-opacified. No evidence of significant stenosis, occlusion, or aneurysm. No significant atherosclerotic changes. Vertebral Arteries: Vertebral arteries bilaterally are well-opacified. No evidence of significant stenosis, occlusion, or aneurysm. No significant atherosclerotic changes. Jugular Veins: Normal opacification of the internal and external jugular veins bilaterally. No evidence of thrombosis or compression. Subclavian Arteries: Subclavian arteries bilaterally are well-opacified. No evidence of significant stenosis, occlusion, or aneurysm. Thyroid Gland: Normal size and morphology of the thyroid gland. No masses or nodules. Soft Tissues: Normal appearance of the surrounding soft tissues of the neck. No abnormal masses or lymphadenopathy. IMPRESSION: Atherosclerotic calcification at bilateral internal carotid arteries with no significant stenosis, aneurysmal dilatation or vascular malformation. Electronically signed by Carmela Lipscomb 03-21-2024 04:51 AM Discharge Plan Visit Data Chief Complaint: Stroke Alert Stated Complaint: L SIDED NUMBNESS, HX OF CVA ED Provider: Fred Mcclure Discharge Problem: Dizziness, Complaint of paresthesia Forms Stand Alone Forms: My [facility] [place] Style on Screen Prescriptions Prescriptions: No Action budesonide-formoterol [Symbicort] 80-4.5 mcg/actuation HFA aerosol inhaler 1 inh inhalation BID Qty: 10.2 5RF Hold Instructions: Failed, attempting to get auth for Advair. hydrochlorothiazide 25 mg tablet 25 mg PO DAILY Qty: 90 1RF atorvastatin 40 mg tablet 40 mg PO DAILY Qty: 90 3RF (DME) OneTouch Ultra Test Strip See Rx Instructions .Route Qty: 100 8RF Rx Instructions: check blood sugars once a day fluticasone propion-salmeterol 100-50 mcg/dose blister with device 1 inh inhalation BID Qty: 180 3RF cyanocobalamin (vitamin B-12) 1,000 mcg capsule 1,000 mcg PO DAILY Qty: 90 3RF pyridoxine (vitamin B6) 50 mg tablet 50 mg PO DAILY Qty: 90 3RF pioglitazone 15 mg tablet 15 mg PO DAILY Qty: 90 3RF potassium chloride 10 mEq tablet extended release 10 meq PO DAILY Qty: 90 3RF metformin 500 mg tablet 1,000 mg PO BID Qty: 360 3RF losartan 50 mg tablet 50 mg PO DAILY Qty: 90 3RF folic acid 1 mg tablet 2.5 mg PO QAM 90 Days Qty: 225 3RF clopidogrel 75 mg tablet 75 mg PO QAM Qty: 90 3RF Referrals Referrals: Geovanny Sommers DO [Primary Care Provider] -
[2024-03-21] MEDS: OPTIRAY 320 125ml IV ONE (04:17)
[2024-03-21] MEDS: ASPIRIN CHEW 324 MG PO STA (04:30)
[2024-03-21 04:36] LABS: Basophils # (auto) 0.11 K/uL (0.00-0.20); Basophils % (auto) 0.9 %; Eosinophils # (auto) 0.35 K/uL (0.00-0.50); Eosinophils % (auto) 2.9 %; Hematocrit (blood only) 47.6 % (42.0-52.0); Hemoglobin 16.3 g/dl (14.0-18.0); Immature Granulocytes # (auto) 0.03 K/uL (0.01-0.20); Immature Granulocytes % (auto) 0.2 %; Lymphocytes # (auto) 4.41 K/uL (1.20-3.40); Lymphocytes % (auto) 36.4 %; Mean Corpuscular Hemoglobin 31.7 pg (25.0-34.0); Mean Corpuscular Hgb Conc 34.2 g/dL (32.0-36.0); Mean Corpuscular Volume 92.6 fL (80.0-100.0); Mean Platelet Volume 12.6 fL (9.4-12.4); Monocytes % (auto) 7.4 %; Neutrophils # (auto) 6.32 K/uL (1.40-6.50); Neutrophils % (auto) 52.2 %; Platelet Count 184 K/uL (130-400); RDW Coefficient of Variation 13.4 % (11.5-14.5); Red Blood Count 5.14 M/uL (4.70-6.10); White Blood Count 12.12 K/ul (4.8-10.8)
--- NOTE | 2024-03-21 04:47 | CT Scan Report ---
EXAM: CT head/brain wo con CLINICAL HISTORY: neuro deficit, acute stroke suspected TECHNIQUE: Axial noncontrast CT scan of the brain was performed from the skull base to the high parietal region. One of the following dose reduction techniques were utilized for this exam: Automated exposure control, adjustment of the mA and/or kV according to patient size, use of iterative reconstruction. COMPARISON: 06/22/2020. FINDINGS: A left frontal small hypodense area of chronic infarction is noted. Sepulveda-white matter differentiation is maintained. Prominent ventricular system and extra-axial CSF spaces are suggestive of age-related involutional changes. No midline shifts or deformity. No intracerebral or extra axial hematoma. Normal CT appearance of the posterior fossa structures namely the cerebellar hemispheres, brainstem and cerebellar peduncles. The cerebello-pontine angles are clear. The osseous structures in the skull base are unremarkable. No definite calvarium fractures. Scanned paranasal sinuses are clear. IMPRESSION: 1. No evidence of established infarction, intracranial or extracranial hemorrhage. Early changes of stroke may not be detected on a CT scan. If strong clinical suspicion of stroke then suggest MRI with diffusion-weighted imaging. 2. Left frontal old lacunar infarction. 3. Appropriate age-related involutional changes. 4. No significant interval changes from the previous study. Electronically signed by Carmela Lipscomb 03-21-2024 04:46 AM
--- NOTE | 2024-03-21 04:50 | CT Scan Report ---
EXAM: CT angio head w con CLINICAL HISTORY: neuro deficit, acute stroke suspected 116 cc opti 320 TECHNIQUE: Axial CT angiography of the head was done with 116 cc opti 320 IV contrast and sagittal and coronal reformats with MIP reconstructions. One of these 3D techniques was utilized: Maximum Intensity Pixel (MIP), 3D Reconstructed Images, Volume Rendered Images, Surface Shaded Rendering. One of the following dose reduction techniques were utilized for this exam: Automated exposure control, adjustment of the mA and/or kV according to patient size, and use of iterative reconstruction. One of the following dose reduction techniques was utilized for this exam.Automated exposure control, adjustment of the mA and/or kV according to patient size, and use of iterative reconstruction. COMPARISON: None. FINDINGS: Intracranial Arteries: The intracranial portions of the internal carotid arteries, anterior cerebral arteries, middle cerebral arteries, posterior cerebral arteries, basilar artery, and vertebral arteries are well-opacified. No evidence of aneurysm, stenosis, or occlusion. Mild is subsequently calcification noted. [place]: The [place] is complete. Normal caliber of the communicating arteries. No vascular malformations or aneurysms. Venous Structures: Normal opacification of the major dural venous sinuses. No evidence of venous sinus thrombosis. Brain Parenchyma: Normal attenuation of the cerebral hemispheres, cerebellum, and brainstem. No evidence of acute infarct, hemorrhage, or mass effect. Skull and Meninges: Normal appearance of the skull. No evidence of meningeal enhancement or thickening. Orbits: Normal appearance of the globes, optic nerves, and extraocular muscles. No evidence of orbital masses or abnormal signal. IMPRESSION: No evidence of significant vascular abnormalities. Electronically signed by Carmela Lipscomb 03-21-2024 04:49 AM
--- NOTE | 2024-03-21 04:53 | CT Scan Report ---
EXAM: CT angio neck with con CLINICAL HISTORY: neuro deficit, acute stroke suspected 116 cc opti 320 TECHNIQUE: CT angiography study of the neck vessels with 116 cc opti 320 IV contrast was performed and multiple axial sections were obtained with coronal and sagittal reconstructions. One of the following dose reduction techniques were utilized for this exam: Automated exposure control, adjustment of the mA and/or kV according to patient size, and use of iterative reconstruction. One of these 3D techniques was utilized: Maximum Intensity Pixel (MIP), 3D Reconstructed Images, Volume Rendered Images, Surface Shaded Rendering. COMPARISON: None. FINDINGS: Carotid Arteries: Atherosclerotic calcification at bilateral internal carotid arteries bulb causing stenosis of about 48% at the left side and 43% at the right side. Otherwise, common carotid arteries, internal carotid arteries, and external carotid arteries bilaterally are well-opacified. No evidence of significant stenosis, occlusion, or aneurysm. No significant atherosclerotic changes. Vertebral Arteries: Vertebral arteries bilaterally are well-opacified. No evidence of significant stenosis, occlusion, or aneurysm. No significant atherosclerotic changes. Jugular Veins: Normal opacification of the internal and external jugular veins bilaterally. No evidence of thrombosis or compression. Subclavian Arteries: Subclavian arteries bilaterally are well-opacified. No evidence of significant stenosis, occlusion, or aneurysm. Thyroid Gland: Normal size and morphology of the thyroid gland. No masses or nodules. Soft Tissues: Normal appearance of the surrounding soft tissues of the neck. No abnormal masses or lymphadenopathy. IMPRESSION: Atherosclerotic calcification at bilateral internal carotid arteries with no significant stenosis, aneurysmal dilatation or vascular malformation. Electronically signed by Carmela Lipscomb 03-21-2024 04:51 AM
[2024-03-21 04:56] LABS: Albumin Globulin Ratio 1.2 (0.9-2); Albumin Level 4.1 gm/dl (3.4-5.0); BUN Creatinine Ratio 15.9 (10-20); Bilirubin,Total 0.6 mg/dl (0.2-1.0); Calcium 9.5 mg/dl (8.6-10.3); Creatinine Clr Calc Pharmacy 74.3 ml/min; Globulin 3.4 gm/dl (2.5-4.0); Magnesium 1.7 mg/dl (1.7-2.4); Potassium 3.8 mmol/L (3.5-5.1); Total Protein 7.5 gm/dl (6.0-8.3)
[2024-03-21 05:05] LABS: Partial Thromboplastin Ratio 1.1; Partial Thromboplastin Time 29 Seconds (21-31); Prothrombin Time 10.6 Seconds (9.0-12.0)
--- NOTE | 2024-03-21 05:31 | History & Physical Report ---
Date of Service March 21, 2024 Assessment & Plan (1) Complaint of paresthesia: Plan: 73yo male with history of HTN, HLP, DM, carotid artery disease and prior CVA presenting with left sided paresthesias involving left face, LUE and LLE ongoing since yesterday. Symptoms are somewhat improved- specifically numbness improved in LLE. Patient reports that he always has some baseline numbness of his left arm since an injury several years ago. Ddx to include CVA, TIA? -Observation to medical with telemetry -Check lipid panel and HgbA1C -Continue Plavix 75mg po daily -Continue Atorvastatin 40mg po daily (2) COPD (chronic obstructive pulmonary disease): Plan: Chronic. No cough, SOB or wheeze -Continue Advair BID -Albuterol PRN (3) DM (diabetes mellitus) type II, controlled, with peripheral vascular disorder: Plan: Chronic. Last [id number]=6.7 on 03/09/24. Patient is compliant with his Metformin and Pioglitazone -Hold oral agents -Lantus 7u BID -ISS -Goal blood sugar 110 - 140 (4) Hypercholesterolemia: Plan: Chronic. -Continue Atorvastatin (5) Hypertension: Plan: Chronic. BP elevated in the ER - presently 153/88 -Hold HCTZ for now -Hold Losartan for now -Continue to monitor History of Present Illness Chief Complaint: left sided numbness and weakness Primary Care Provider: DO Ceasar Boone Kenneth is a pleasant 73yo right-hand dominant male with history of HLP, DM, COPD, prior CVA and carotid artery disease s/p right endarterectomy presenting with left sided numbness. Patient reports yesterday around 15:00 he developed left sided numbness and tingling involving his left fact, LUE and LLE. This persisted throughout the day. Last night he woke up around 03:00 to use the bathroom and felt unsteady on his feet and dizzy. His dizziness has subsided and the numbness of his LLE has improved somewhat. He still has numbness of his LUE and left face. He denies weakness, CONNELL, visual changes, neck pain, difficulties with speech. Denies chest pain, palpitations, SOB, abdominal pain, nausea, vomiting or diarrhea. No additional complaints at this time. In the ER patient is afebrile, hypertensive otherwise stable. ER Course: ASA 324mg Allergies Allergy/AdvReac Type Severity Reaction Status Date / Time No Known Allergies Allergy Verified 03/09/24 07:49 Home Medications Medication Instructions Recorded Confirmed Type budesonide-formoterol HFA 80 1 inh inhalation BID #10.2 grams 05/03/22 03/21/24 Rx mcg-4.5 mcg/actuation aerosol inhaler (Symbicort) cyanocobalamin (vitamin B-12) 1,000 mcg PO DAILY #90 caps 09/05/23 03/21/24 Rx 1,000 mcg capsule fluticasone 100 mcg-salmeterol 50 1 inh inhalation BID #180 ea 09/05/23 03/21/24 Rx mcg/dose blistr powdr for inhalation pyridoxine (vitamin B6) 50 mg 50 mg PO DAILY #90 tabs 09/05/23 03/21/24 Rx tablet atorvastatin 40 mg tablet 40 mg PO DAILY #90 tabs 02/25/24 03/21/24 Rx hydrochlorothiazide 25 mg tablet 25 mg PO DAILY #90 tabs 02/25/24 03/21/24 Rx clopidogrel 75 mg tablet 75 mg PO QAM #90 tabs 03/09/24 03/21/24 Rx folic acid 1 mg tablet 2.5 mg (2.5 x 1 mg) PO QAM 90 days 03/09/24 03/21/24 Rx #225 tabs losartan 50 mg tablet 50 mg PO DAILY #90 tabs 03/09/24 03/21/24 Rx metformin 500 mg tablet 1,000 mg (2 x 500 mg) PO BID #360 03/09/24 03/21/24 Rx tabs pioglitazone 15 mg tablet 15 mg PO DAILY #90 tabs 03/09/24 03/21/24 Rx potassium chloride 10 mEq 10 meq PO DAILY #90 tabs 03/09/24 03/21/24 Rx tablet,extended release blood sugar diagnostic (OneTouch #100 ea 03/18/24 Rx Ultra Test strips) Past Med/Surg History Problem List Complaint of paresthesia (Acute) Dizziness (Acute) 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 Cigarette smoker Screening for lung cancer COPD (chronic obstructive pulmonary disease) Leukocytosis (Chronic) DM (diabetes mellitus) type II, controlled, with peripheral vascular disorder Ischemic optic neuropathy of right eye Cerebrovascular disease Hypercholesterolemia Hyperhomocystinemia Bradycardia 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, 2019 CTA, small incomplete focal carotid bifurcation dissection following right carotid endarterectomy Diabetes mellitus type 2, uncontrolled Hyperlipidemia Surgical History History of cholecystectomy Family History Father Myocardial infarction Father COPD (chronic obstructive pulmonary disease) Coronary heart disease Diabetes Family/Other Stroke FH: deafness or hearing loss Mother Stroke Brother Bladder cancer Denies family history of Ovarian cancer Prostate cancer Breast cancer Colorectal cancer Social History Smoking Status: Never smoker Tobacco Type: Cigarettes Age Started Using Tobacco: 16; packs per day: 1; Cigarettes Per Day: 1ppd; Second Hand Exposure: Yes; Do You Dip or Chew Tobacco: No; Hx Alcohol Use: No Hx Substance Use: No Preferred Language: Kyrgyz Communication Ability: Effective Visual Impairment: No Limitations Hearing Ability: Use of Hearing Aid Group Director Required: No Beliefs That Will Affect Care: None marital status: Current Living Situation: Spouse current occupational status: retired current occupation: He is still driving truck with [employer] Feels Safe at Home: Yes Childhood Exposure to Second-Hand Smoke: Yes Diet: regular caffeine: No Dental Care, Regularly: Yes Physical Activity Frequency: Does not Exercise Seatbelt Use: always Sunscreen Use: No Assistive Devices: Oxygen - Continuous Review of Systems Review of Systems: All systems reviewed & are unremarkable except as noted in HPI & below Physical Exam Physical Exam: General: patient resting comfortably, NAD, non-toxic in appearance, AA&O x 4 Skin: warm, dry, intact, no rashes or lesions HEENT: NC/AT, PERRL, EOMI, anicteric sclera, conjunctiva without injection, external ear normal to inspection and nontender, nares patent, moist mucus membranes, dentition intact, no oropharyngeal lesions, neck supple, trachea mid line, no LAD, no thyromegaly, no JVD Heart: +S1/S2, regular, no m/r/g Lungs: equal air entry bilaterally, no rales/rhonchi/wheezes Abd: +BS, soft, NT/ND, no masses/organomegaly/ascites Ext: warm, 2+ pulses in UE/LE bilaterally, no clubbing/cyanosis or edema Neuro: CN grossly intact, numbness of left face and LUE, numbness of LLE improved and feels almost equal to RLE to light touch, gait stable Results & Data Results & Data Vital Signs (Past 12 Hours) Vital Signs Temp Pulse Resp BP Pulse Ox O2 Del Method 03/21/24 04:20 70 03/21/24 03:51 36.9 C 69 22 153/88 H 91 Room Air Laboratory Results Laboratory Results WBC 12.12 K/ul (4.8-10.8) H 03/21/24 03:57 RBC 5.14 M/uL (4.70-6.10) 03/21/24 03:57 Hgb 16.3 g/dl (14.0-18.0) 03/21/24 03:57 Hct 47.6 % (42.0-52.0) 03/21/24 03:57 MCV 92.6 fL (80.0-100.0) 03/21/24 03:57 MCH 31.7 pg (25.0-34.0) 03/21/24 03:57 MCHC 34.2 g/dL (32.0-36.0) 03/21/24 03:57 RDW Std Deviation 46.0 fL (36.4-46.3) 03/21/24 03:57 RDW Coeff of [place]ing[place] 13.4 % (11.5-14.5) 03/21/24 03:57 Plt Count 184 K/uL (130-400) 03/21/24 03:57 MPV 12.6 fL (9.4-12.4) H 03/21/24 03:57 Immature Gran % (Auto) 0.2 % 03/21/24 03:57 Neut % (Auto) 52.2 % 03/21/24 03:57 Lymph % (Auto) 36.4 % 03/21/24 03:57 [place] % (Auto) 7.4 % 03/21/24 03:57 Eos % (Auto) 2.9 % 03/21/24 03:57 Baso % (Auto) 0.9 % 03/21/24 03:57 Neut # (Auto) 6.32 K/uL (1.40-6.50) 03/21/24 03:57 Lymph # (Auto) 4.41 K/uL (1.20-3.40) H 03/21/24 03:57 [place] # (Auto) 0.90 K/uL (0.11-0.59) H 03/21/24 03:57 Eos # (Auto) 0.35 K/uL (0.00-0.50) 03/21/24 03:57 Baso # (Auto) 0.11 K/uL (0.00-0.20) 03/21/24 03:57 Immature Gran # (Auto) 0.03 K/uL (0.01-0.20) 03/21/24 03:57 PT 10.6 Seconds (9.0-12.0) 03/21/24 03:57 INR 1.0 (0.9-1.1) 03/21/24 03:57 APTT 29 Seconds (21-31) 03/21/24 03:57 PTT Ratio 1.1 03/21/24 03:57 Sodium 137 mmol/L (136-145) 03/21/24 03:57 Potassium 3.8 mmol/L (3.5-5.1) 03/21/24 03:57 Chloride 104 mmol/L (98-107) 03/21/24 03:57 Carbon Dioxide 22 mmol/L (21-32) 03/21/24 03:57 Anion Gap 11 (3-11) 03/21/24 03:57 BUN 18 mg/dl (6-23) 03/21/24 03:57 Creatinine 1.13 mg/dl (0.6-1.4) 03/21/24 03:57 Est Cr Clr Drug Dosing 74.3 ml/min 03/21/24 03:57 eGFR 69.06 03/21/24 03:57 BUN/Creatinine Ratio 15.9 (10-20) 03/21/24 03:57 Glucose 107 mg/dl (70-99(Fasting)) H 03/21/24 03:57 Calcium 9.5 mg/dl (8.6-10.3) 03/21/24 03:57 Magnesium 1.7 mg/dl (1.7-2.4) 03/21/24 03:57 Total Bilirubin 0.6 mg/dl (0.2-1.0) 03/21/24 03:57 AST 28 U/L (13-39) 03/21/24 03:57 ALT 30 U/L (7-52) 03/21/24 03:57 Alkaline Phosphatase 76 U/L (34-104) 03/21/24 03:57 Troponin I High Sens 7.0 pg/ml (0-20) 03/21/24 03:57 Total Protein 7.5 gm/dl (6.0-8.3) 03/21/24 03:57 Albumin 4.1 gm/dl (3.4-5.0) 03/21/24 03:57 Globulin 3.4 gm/dl (2.5-4.0) 03/21/24 03:57 Albumin/Globulin Ratio 1.2 (0.9-2) 03/21/24 03:[address] 03/21/24 03:57 EXAM: CT head/brain wo con CLINICAL HISTORY: neuro deficit, acute stroke suspected TECHNIQUE: Axial noncontrast CT scan of the brain was performed from the skull base to the high parietal region. One of the following dose reduction techniques were utilized for this exam: Automated exposure control, adjustment of the mA and/or kV according to patient size, use of iterative reconstruction. COMPARISON: 06/22/2020. FINDINGS: A left frontal small hypodense area of chronic infarction is noted. [place]-white matter differentiation is maintained. Prominent ventricular system and extra-axial CSF spaces are suggestive of age-related involutional changes. No midline shifts or deformity. No intracerebral or extra axial hematoma. Normal CT appearance of the posterior fossa structures namely the cerebellar hemispheres, brainstem and cerebellar peduncles. The cerebello-pontine angles are clear. The osseous structures in the skull base are unremarkable. No definite calvarium fractures. Scanned paranasal sinuses are clear. IMPRESSION: 1. No evidence of established infarction, intracranial or extracranial hemorrhage. Early changes of stroke may not be detected on a CT scan. If strong clinical suspicion of stroke then suggest MRI with diffusion-weighted imaging. 2. Left frontal old lacunar infarction. 3. Appropriate age-related involutional changes. 4. No significant interval changes from the previous study. Electronically signed by Carmela Lipscomb 03-21-2024 04:46 AM Head CTA 03/21/24 03:57 EXAM: CT angio head w con CLINICAL HISTORY: neuro deficit, acute stroke suspected 116 cc opti 320 TECHNIQUE: Axial CT angiography of the head was done with 116 cc opti 320 IV contrast and sagittal and coronal reformats with MIP reconstructions. One of these 3D techniques was utilized: Maximum Intensity Pixel (MIP), 3D Reconstructed Images, Volume Rendered Images, Surface Shaded Rendering. One of the following dose reduction techniques were utilized for this exam: Automated exposure control, adjustment of the mA and/or kV according to patient size, and use of iterative reconstruction. One of the following dose reduction techniques was utilized for this exam.Automated exposure control, adjustment of the mA and/or kV according to patient size, and use of iterative reconstruction. COMPARISON: None. FINDINGS: Intracranial Arteries: The intracranial portions of the internal carotid arteries, anterior cerebral arteries, middle cerebral arteries, posterior cerebral arteries, basilar artery, and vertebral arteries are well-opacified. No evidence of aneurysm, stenosis, or occlusion. Mild is subsequently calcification noted. [place]: The [place] is complete. Normal caliber of the communicating arteries. No vascular malformations or aneurysms. Venous Structures: Normal opacification of the major dural venous sinuses. No evidence of venous sinus thrombosis. Brain Parenchyma: Normal attenuation of the cerebral hemispheres, cerebellum, and brainstem. No evidence of acute infarct, hemorrhage, or mass effect. Skull and Meninges: Normal appearance of the skull. No evidence of meningeal enhancement or thickening. Orbits: Normal appearance of the globes, optic nerves, and extraocular muscles. No evidence of orbital masses or abnormal signal. IMPRESSION: No evidence of significant vascular abnormalities. Electronically signed by Carmela Lipscomb 03-21-2024 04:49 AM Neck CTA 03/21/24 03:57 EXAM: CT angio neck with con CLINICAL HISTORY: neuro deficit, acute stroke suspected 116 cc opti 320 TECHNIQUE: CT angiography study of the neck vessels with 116 cc opti 320 IV contrast was performed and multiple axial sections were obtained with coronal and sagittal reconstructions. One of the following dose reduction techniques were utilized for this exam: Automated exposure control, adjustment of the mA and/or kV according to patient size, and use of iterative reconstruction. One of these 3D techniques was utilized: Maximum Intensity Pixel (MIP), 3D Reconstructed Images, Volume Rendered Images, Surface Shaded Rendering. COMPARISON: None. FINDINGS: Carotid Arteries: Atherosclerotic calcification at bilateral internal carotid arteries bulb causing stenosis of about 48% at the left side and 43% at the right side. Otherwise, common carotid arteries, internal carotid arteries, and external carotid arteries bilaterally are well-opacified. No evidence of significant stenosis, occlusion, or aneurysm. No significant atherosclerotic changes. Vertebral Arteries: Vertebral arteries bilaterally are well-opacified. No evidence of significant stenosis, occlusion, or aneurysm. No significant atherosclerotic changes. Jugular Veins: Normal opacification of the internal and external jugular veins bilaterally. No evidence of thrombosis or compression. Subclavian Arteries: Subclavian arteries bilaterally are well-opacified. No evidence of significant stenosis, occlusion, or aneurysm. Thyroid Gland: Normal size and morphology of the thyroid gland. No masses or nodules. Soft Tissues: Normal appearance of the surrounding soft tissues of the neck. No abnormal masses or lymphadenopathy. IMPRESSION: Atherosclerotic calcification at bilateral internal carotid arteries with no significant stenosis, aneurysmal dilatation or vascular malformation. Electronically signed by Carmela Lipscomb 03-21-2024 04:51 AM PG Care Time/CCT Total # of Minutes Spent Total Time Spent with Patient: Total time spent is greater than 50% in coordination of care (as documented) at patient's floor/unit and/or counseling patient: Coding Level of Care Code 32331 INT INP/OBS CARE 3/75MIN Diagnoses Complaint of paresthesia R20.2 Chronic obstructive pulmonary disease, unspecified COPD type J44.9 COPD type: unspecified COPD DM (diabetes mellitus) type II, controlled, with peripheral vascular disorder E11.51 Hypercholesterolemia E78.00 Hypertension I10 (2) COPD (chronic obstructive pulmonary disease) COPD type: unspecified COPD Qualified Code(s): J44.9 - Chronic obstructive pulmonary disease, unspecified
[2024-03-21] MEDS: POTASSIUM CHLORIDE CRTAB 20 MEQ TABCR PO STA (07:20)
[2024-03-21] MEDS: MAGNESIUM SULFATE / D5W 1 GM/100 ML BAG IV STA (07:21)
[2024-03-21] MEDS ORDERED: PHARMACIST DISCHARGE MED REC CONSULT PRN (08:25)
[2024-03-21] MEDS ORDERED: GLUCOSE 40% GEL 15 GM TUBE PO PRN (08:25)
[2024-03-21] MEDS ORDERED: GLUCAGON FOR INJ 1 MG VIAL SQ PRN (08:25)
[2024-03-21] MEDS ORDERED: ALBUTEROL HFA 8 GM INHALER INH PRN (08:25)
[2024-03-21] MEDS ORDERED: ACETAMINOPHEN 325 MG TAB PO PRN (08:25)
[2024-03-21] MEDS ORDERED: ONDANSETRON INJ 2 MG/ML 2 ML VIAL IV PRN (08:25)
[2024-03-21] MEDS ORDERED: GLUCOSE 10 TAB/TUBE PO PRN (08:25)
[2024-03-21] MEDS ORDERED: DEXTROSE 50% 50 ML SYRINGE IV PRN (08:25)
[2024-03-21] MEDS ORDERED: CARBOHYDRATES FOR HYPOGLYCEMIA PO PRN (08:25)
--- NOTE | 2024-03-21 08:31 | Electrocardiogram Report ---
Test Reason : Blood Pressure : */* mmHG Vent. Rate : 72 BPM Atrial Rate : 72 BPM P-R Int : 216 ms QRS Dur : 88 ms QT Int : 434 ms P-R-T Axes : -7 28 34 degrees QTcB Int : 475 ms Sinus rhythm with sinus arrhythmia with 1st degree A-V block Otherwise normal ECG When compared with ECG of 22-Jun-2020 11:46, [place] interval has increased Confirmed by Brian Myers ([id number]) on 03/21/2024 8:31:01 AM Referred By: REFERRED SELF Confirmed By: Brian Myers
[2024-03-21] MEDS ORDERED: PHARMACY GLYCEMIC MGMT CONSULT PRN (08:32)
[2024-03-21] MEDS: GADOBUTROL 65ML VIAL IV ONE (09:10)
[2024-03-21] MEDS: ATORVASTATIN 40 MG TAB PO SCH (09:27)
[2024-03-21] MEDS: CLOPIDOGREL BISULFATE 75 MG TAB PO SCH (09:28)
[2024-03-21] MEDS: FOLIC ACID 1 MG TAB PO SCH (09:28)
[2024-03-21] MEDS: INSULIN ASPART PER UNIT CHARGE SC SCH (09:48)
[2024-03-21] MEDS: LANTUS PER UNIT CHARGE SQ SCH (09:49)
[2024-03-21 10:08] LABS: Basophils # (auto) 0.08 K/uL (0.00-0.20); Basophils % (auto) 0.7 %; Eosinophils # (auto) 0.17 K/uL (0.00-0.50); Eosinophils % (auto) 1.4 %; Hematocrit (blood only) 52.3 % (42.0-52.0); Hemoglobin 17.4 g/dl (14.0-18.0); Immature Granulocytes # (auto) 0.04 K/uL (0.01-0.20); Immature Granulocytes % (auto) 0.3 %; Lymphocytes # (auto) 2.93 K/uL (1.20-3.40); Lymphocytes % (auto) 24.5 %; Mean Corpuscular Hemoglobin 31.5 pg (25.0-34.0); Mean Corpuscular Hgb Conc 33.3 g/dL (32.0-36.0); Mean Corpuscular Volume 94.6 fL (80.0-100.0); Monocytes # (auto) 0.69 K/uL (0.11-0.59); Monocytes % (auto) 5.8 %; Neutrophils # (auto) 8.04 K/uL (1.40-6.50); Neutrophils % (auto) 67.3 %; Platelet Count 200 K/uL (130-400); RDW Coefficient of Variation 13.5 % (11.5-14.5); RDW Standard Deviation 47.2 fL (36.4-46.3); Red Blood Count 5.53 M/uL (4.70-6.10); White Blood Count 11.95 K/ul (4.8-10.8)
[2024-03-21] MEDS: FLUTICASONE/VILANTEROL 100/25MCG 14 PUFFS/INHALER INH SCH (10:19)
[2024-03-21 10:25] LABS: Magnesium 2.1 mg/dl (1.7-2.4); Potassium 4.1 mmol/L (3.5-5.1)
--- NOTE | 2024-03-21 10:39 | Magnetic Resonance Report ---
MR brain wo/w con HISTORY: 73 years-old Male ?CVA acute strokelike symptoms COMPARISON: Head CT of same day, brain MRI 06/22/2020 TECHNIQUE: Multiplanar multisequence MRI of the brain was obtained with and without IV contrast FINDINGS: No restricted diffusion. Subcentimeter chronic right cerebellar lacunar infarct. Midline structures a ppear unremarkable. Degenerative changes of the cervical spine. No pathologic blooming artifact. No a cute intracranial hemorrhage, midline shift, abnormal extra-axial collection, hydrocephalus or intra- axial mass. The cerebral venous sinuses and major arterial flow voids appear patent. Skull, orbits and soft tissu es are within normal limits. Involutional changes with moderate T2/FLAIR hyperintense foci noted thro ughout the white matter, mildly progressed from prior. No abnormal enhancement. IMPRESSION: 1. No acute intracranial abnormality. No acute or subacute infarct. 2. No abnormal enhancement. 3. Involutional changes with chronic microvascular ischemic disease. ACT 112: Negative or not required by law. The above report was generated using voice recognition software. It may contain grammatical, syntax o r spelling errors. Electronically signed by: Marcelo Urban M.D. 03/21/2024 10:37 AM
--- NOTE | 2024-03-21 10:49 | XRay Report ---
XR chest 2V PA/lateral HISTORY: 73 years-old Male LEUKOCYTOSIS, COPD chronic shortness of breath COMPARISON: 06/22/2020 TECHNIQUE: PA and lateral views of the chest FINDINGS: Cardiomediastinal and hilar silhouettes are unchanged. There is chronic interstitial coarsening of th e lungs. Emphysema. No pneumothorax, pleural effusion or airspace consolidation. Spondylotic spurring of the spine. IMPRESSION: 1. Emphysema without acute process. 2. Chronic fibrotic changes again noted. ACT 112: Negative or not required by law. The above report was generated using voice recognition software. It may contain grammatical, syntax o r spelling errors. Electronically signed by: Marcelo Urban M.D. 03/21/2024 10:48 AM
--- NOTE | 2024-03-21 11:16 | XCELERA ---
[id number] \\[id number]
--- NOTE | 2024-03-21 11:38 | Hospitalist Progress Note ---
Date of Service March 21, 2024 Assessment & Plan (1) TIA (transient ischemic attack): (2) H/O: CVA (cerebrovascular accident): (3) History of right-sided carotid endarterectomy: (4) Hypercholesterolemia: (5) Hypertension: (6) Diabetes mellitus type 2, uncontrolled: (7) Cigarette smoker: (8) COPD (chronic obstructive pulmonary disease): Plan 73-year-old male with past medical history of CVA, right carotid stenosis status post right CEA in 2019, essential hypertension, hyperlipidemia, type 2 diabetes mellitus, COPD, tobacco use disorder, obesity who presents to the ED with 2-day history of left-sided paresthesias involving the left face, left upper extremity and left lower extremity which have all resolved since admission. #TIA #History of CVA #History of right carotid endarterectomy #Essential hypertension #Hyperlipidemia CT head, CTA head and neck were all unremarkable MRI of the brain did not show any acute infarct I spoke with neurologist Dr. Lemus on the phone regarding this patient: He reviewed the history, patient's scans and believes this patient may have had a TIA Dr. Lemus has recommended continuing Plavix 75 mg daily and adding aspirin 81 mg daily for 3 weeks for dual antiplatelet therapy for 3 weeks, continuing statin, checking fasting lipid in a.m. and for patient to follow-up with neurology as outpatient on discharge Patient has seen Dr. Pedraza in the past: Will have patient follow-up with Dr. Pedraza on discharge Check fasting lipid in a.m. A1c is 7.7 from 03/09/2024 B12 is 1310 TSH is 2.265 Continue Plavix plus statin Add aspirin 81 mg daily for 3 weeks Resume losartan 50 mg daily 2D echo done: Results pending Continue telemetry monitoring Monitor vital signs PT/OT eval #Type 2 diabetes mellitus A1c is 7.7 from 03/09/2024 Pharmacy consult for glycemic control #COPD #Tobacco use disorder Smoking cessation counseling provided Patient agreeable to using nicotine replacement patch 2 view chest x-ray reviewed and shows chronic emphysema, no evidence of infiltrates Continue home inhalers Patient not requiring oxygen and is not in COPD exacerbation #Mild leukocytosis Patient is afebrile, chest x-ray shows no evidence of infection Check urine analysis Monitor white count which is improving CODE STATUS: Full code DVT prophylaxis: Start Lovenox 40 mg subcutaneous daily Discharge planning likely tomorrow based on PT/OT recommendations Care plan discussed with patient, nursing staff Admission and Anticipated Discharge Date Admission Date: March 21, 2024 Subjective Patient seen and examined H&P reviewed Labs reviewed Radiology reviewed Telemetry reviewed Patient is ambulating, denies any headache, dizziness, lightheadedness, chest pain, shortness of breath, nausea, vomiting, diarrhea, abdominal pain, fever, chills. Patient states he has had a longstanding cough with clear sputum production with no change in sputum production. His left side paresthesias have all resolved. Social history: Denies tobacco use. 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 He smokes half a pack a day Physical Exam Physical Exam: General: No acute distress Psych: Awake and alert HEENT: Anicteric sclera, moist oral mucosa CVS: Regular rate and rhythm Lungs: Bilateral air entry, no wheezing noted Abdomen: Soft, nontender, no rebound, no guarding Ext: No lower extremity edema, no calf tenderness Neuro: No focal motor deficits noted, cranial nerves II to XII are grossly intact Results & Data Results & Data Vital Signs (Past 12 Hours) Vital Signs Temp Pulse Pulse Resp BP BP Pulse Ox 03/21/24 11:01 68 18 166/79 H 95 03/21/24 10:16 64 20 166/79 H 95 03/21/24 08:24 63 03/21/24 07:00 60 21 130/82 94 03/21/24 05:51 63 16 151/77 H 99 03/21/24 04:20 70 03/21/24 03:51 36.9 C 69 22 153/88 H 91 O2 Del Method 03/21/24 11:01 Room Air 03/21/24 10:16 Room Air 03/21/24 08:24 03/21/24 07:00 03/21/24 05:51 Room Air 03/21/24 04:20 03/21/24 03:51 Room Air Laboratory Results Laboratory Results - last 24 hr 03/21/24 03/21/24 03/21/24 03:57 09:25 09:52 WBC 12.12 H 11.95 H RBC 5.14 5.53 Hgb 16.3 17.4 Hct 47.6 52.3 H MCV 92.6 94.6 MCH 31.7 31.5 MCHC 34.2 33.3 RDW Std Deviation 46.0 47.2 H RDW Coeff of Dominga 13.4 13.5 Plt Count 184 200 MPV 12.6 H 12.0 Immature Gran % (Auto) 0.2 0.3 Neut % (Auto) 52.2 67.3 Lymph % (Auto) 36.4 24.5 Anson % (Auto) 7.4 5.8 Eos % (Auto) 2.9 1.4 Baso % (Auto) 0.9 0.7 Neut # (Auto) 6.32 8.04 H Lymph # (Auto) 4.41 H 2.93 Anson # (Auto) 0.90 H 0.69 H Eos # (Auto) 0.35 0.17 Baso # (Auto) 0.11 0.08 Immature Gran # (Auto) 0.03 0.04 PT 10.6 INR 1.0 APTT 29 PTT Ratio 1.1 Sodium 137 137 Potassium 3.8 4.1 Chloride 104 101 Carbon Dioxide 22 27 Anion Gap 11 9 BUN 18 15 Creatinine 1.13 1.15 Est Cr Clr Drug Dosing 74.3 73.0 eGFR 69.06 67.62 BUN/Creatinine Ratio 15.9 13.0 Glucose 107 H 186 H POC Glucose 168 H Calcium 9.5 10.0 Magnesium 1.7 2.1 Total Bilirubin 0.6 AST 28 ALT 30 Alkaline Phosphatase 76 Troponin I High Sens 7.0 Total Protein 7.5 Albumin 4.1 Globulin 3.4 Albumin/Globulin Ratio 1.2 Vitamin B12 1310 H Diagnostic Findings Head CT 03/21/24 03:57 EXAM: CT head/brain wo con CLINICAL HISTORY: neuro deficit, acute stroke suspected TECHNIQUE: Axial noncontrast CT scan of the brain was performed from the skull base to the high parietal region. One of the following dose reduction techniques were utilized for this exam: Automated exposure control, adjustment of the mA and/or kV according to patient size, use of iterative reconstruction. COMPARISON: 06/22/2020. FINDINGS: A left frontal small hypodense area of chronic infarction is noted. Sepulveda-white matter differentiation is maintained. Prominent ventricular system and extra-axial CSF spaces are suggestive of age-related involutional changes. No midline shifts or deformity. No intracerebral or extra axial hematoma. Normal CT appearance of the posterior fossa structures namely the cerebellar hemispheres, brainstem and cerebellar peduncles. The cerebello-pontine angles are clear. The osseous structures in the skull base are unremarkable. No definite calvarium fractures. Scanned paranasal sinuses are clear. IMPRESSION: 1. No evidence of established infarction, intracranial or extracranial hemorrhage. Early changes of stroke may not be detected on a CT scan. If strong clinical suspicion of stroke then suggest MRI with diffusion-weighted imaging. 2. Left frontal old lacunar infarction. 3. Appropriate age-related involutional changes. 4. No significant interval changes from the previous study. Electronically signed by Carmela Lipscomb 03-21-2024 04:46 AM Head CTA 03/21/24 03:57 EXAM: CT angio head w con CLINICAL HISTORY: neuro deficit, acute stroke suspected 116 cc opti 320 TECHNIQUE: Axial CT angiography of the head was done with 116 cc opti 320 IV contrast and sagittal and coronal reformats with MIP reconstructions. One of these 3D techniques was utilized: Maximum Intensity Pixel (MIP), 3D Reconstructed Images, Volume Rendered Images, Surface Shaded Rendering. One of the following dose reduction techniques were utilized for this exam: Automated exposure control, adjustment of the mA and/or kV according to patient size, and use of iterative reconstruction. One of the following dose reduction techniques was utilized for this exam.Automated exposure control, adjustment of the mA and/or kV according to patient size, and use of iterative reconstruction. COMPARISON: None. FINDINGS: Intracranial Arteries: The intracranial portions of the internal carotid arteries, anterior cerebral arteries, middle cerebral arteries, posterior cerebral arteries, basilar artery, and vertebral arteries are well-opacified. No evidence of aneurysm, stenosis, or occlusion. Mild is subsequently calcification noted. [place]: The [place] is complete. Normal caliber of the communicating arteries. No vascular malformations or aneurysms. Venous Structures: Normal opacification of the major dural venous sinuses. No evidence of venous sinus thrombosis. Brain Parenchyma: Normal attenuation of the cerebral hemispheres, cerebellum, and brainstem. No evidence of acute infarct, hemorrhage, or mass effect. Skull and Meninges: Normal appearance of the skull. No evidence of meningeal enhancement or thickening. Orbits: Normal appearance of the globes, optic nerves, and extraocular muscles. No evidence of orbital masses or abnormal signal. IMPRESSION: No evidence of significant vascular abnormalities. Electronically signed by Carmela Lipscomb 03-21-2024 04:49 AM Neck CTA 03/21/24 03:57 EXAM: CT angio neck with con CLINICAL HISTORY: neuro deficit, acute stroke suspected 116 cc opti 320 TECHNIQUE: CT angiography study of the neck vessels with 116 cc opti 320 IV contrast was performed and multiple axial sections were obtained with coronal and sagittal reconstructions. One of the following dose reduction techniques were utilized for this exam: Automated exposure control, adjustment of the mA and/or kV according to patient size, and use of iterative reconstruction. One of these 3D techniques was utilized: Maximum Intensity Pixel (MIP), 3D Reconstructed Images, Volume Rendered Images, Surface Shaded Rendering. COMPARISON: None. FINDINGS: Carotid Arteries: Atherosclerotic calcification at bilateral internal carotid arteries bulb causing stenosis of about 48% at the left side and 43% at the right side. Otherwise, common carotid arteries, internal carotid arteries, and external carotid arteries bilaterally are well-opacified. No evidence of significant stenosis, occlusion, or aneurysm. No significant atherosclerotic changes. Vertebral Arteries: Vertebral arteries bilaterally are well-opacified. No evidence of significant stenosis, occlusion, or aneurysm. No significant atherosclerotic changes. Jugular Veins: Normal opacification of the internal and external jugular veins bilaterally. No evidence of thrombosis or compression. Subclavian Arteries: Subclavian arteries bilaterally are well-opacified. No evidence of significant stenosis, occlusion, or aneurysm. Thyroid Gland: Normal size and morphology of the thyroid gland. No masses or nodules. Soft Tissues: Normal appearance of the surrounding soft tissues of the neck. No abnormal masses or lymphadenopathy. IMPRESSION: Atherosclerotic calcification at bilateral internal carotid arteries with no significant stenosis, aneurysmal dilatation or vascular malformation. Electronically signed by Carmela Lipscomb 03-21-2024 04:51 AM Brain MRI 03/21/24 08:25 MR brain wo/w con HISTORY: 73 years-old Male ?CVA acute strokelike symptoms COMPARISON: Head CT of same day, brain MRI 06/22/2020 TECHNIQUE: Multiplanar multisequence MRI of the brain was obtained with and without IV contrast FINDINGS: No restricted diffusion. Subcentimeter chronic right cerebellar lacunar infarct. Midline structures appear unremarkable. Degenerative changes of the cervical spine. No pathologic blooming artifact. No acute intracranial hemorrhage, midline shift, abnormal extra-axial collection, hydrocephalus or intra-axial mass. The cerebral venous sinuses and major arterial flow voids appear patent. Skull, orbits and soft tissues are within normal limits. Involutional changes with moderate T2/FLAIR hyperintense foci noted throughout the white matter, mildly progressed from prior. No abnormal enhancement. IMPRESSION: 1. No acute intracranial abnormality. No acute or subacute infarct. 2. No abnormal enhancement. 3. Involutional changes with chronic microvascular ischemic disease. ACT 112: Negative or not required by law. The above report was generated using voice recognition software. It may contain grammatical, syntax or spelling errors. Electronically signed by: Marcelo Urban M.D. 03/21/2024 10:37 AM Chest X-Ray 03/21/24 08:45 XR chest 2V PA/lateral HISTORY: 73 years-old Male LEUKOCYTOSIS, COPD chronic shortness of breath COMPARISON: 06/22/2020 TECHNIQUE: PA and lateral views of the chest FINDINGS: Cardiomediastinal and hilar silhouettes are unchanged. There is chronic interstitial coarsening of the lungs. Emphysema. No pneumothorax, pleural effusion or airspace consolidation. Spondylotic spurring of the spine. IMPRESSION: 1. Emphysema without acute process. 2. Chronic fibrotic changes again noted. ACT 112: Negative or not required by law. The above report was generated using voice recognition software. It may contain grammatical, syntax or spelling errors. Electronically signed by: Marcelo rUban M.D. 03/21/2024 10:48 AM PG Care Time/CCT Total # of Minutes Spent Total Time Spent with Patient: Total time spent is greater than 50% in coordination of care (as documented) at patient's floor/unit and/or counseling patient: Coding Level of Care Code None Diagnoses TIA (transient ischemic attack) G45.9 H/O: CVA (cerebrovascular accident) Z86.73 History of right-sided carotid endarterectomy Z98.890 Hypercholesterolemia E78.00 Hypertension I10 Uncontrolled type 2 diabetes mellitus with hyperglycemia E11.65 Glycemic state: with hyperglycemia Cigarette smoker F17.210 Chronic obstructive pulmonary disease, unspecified COPD type J44.9 COPD type: unspecified COPD (6) Diabetes mellitus type 2, uncontrolled Glycemic state: with hyperglycemia Qualified Code(s): E11.65 - Type 2 diabetes mellitus with hyperglycemia (8) COPD (chronic obstructive pulmonary disease) COPD type: unspecified COPD Qualified Code(s): J44.9 - Chronic obstructive pulmonary disease, unspecified
[2024-03-21 12:15] LABS: Thyroid Stimulating Hormone 2.265 uIu/ml (0.300-4.500)
[2024-03-21] MEDS: ASPIRIN 81 MG ECTAB PO SCH (12:26)
[2024-03-21] MEDS: NICOTINE 14 MG/24 HR PATCH TD SCH (12:26)
[2024-03-21] MEDS: LOSARTAN POTASSIUM 50 MG TAB PO SCH (13:23)
--- NOTE | 2024-03-21 13:26 | Pharmacy Report ---
Pharmacy Glycemic Short Note 2 - Date of Service March 21, 2024 - Glycemic Short BSG Results (Last 24 hours): 03/21/24 03/21/24 03/21/24 03:57 09:25 09:52 Glucose 107 H 186 H POC Glucose 168 H OUTPATIENT ANTIDIABETIC REGIMEN: * metformin 1 gm bid, pioglitazone 15 mg daily ASSESSMENT: * 73 year old admitted with dizziness, workup for CVA/TIA. Type 2 diabetic managed only on oral agents outpatient. Pharmacy consulted for glycemic management. Initial glycemic orders placed by provider this AM, however provider refusing all insulin. Will adjust to just novolog with lunch time check and d/c basal insulin for now. PLAN FOR INPATIENT GLYCEMIC CONTROL: * Hold outpatient oral diabetes medications * Basal insulin * Lantus - hold * Bolus insulin * NovoLog per scale ACHS or Q6hrs while NPO * Goal Range: Low 110 mg/dL - High 140 mg/dL * Correction Factor: 30 mg/dL/unit * Nutritional / Prandial insulin per carb ratio of 1 unit per 12 grams CHO consumed
[2024-03-21] MEDS: hydroCHLOROthiazide 25 MG TAB PO STA (16:48)
[2024-03-21 18:21] LABS: Appearance Urine Clear (Clear); Bilirubin Urine Negative (Negative); Blood Urine Negative (Negative); Color Urine Yellow; Glucose Urine UA Negative (Negative); Ketones Urine Negative (Negative); Leukocyte Esterase Urine Negative (Negative); Nitrite Urine Negative (Negative); Protein Urine Negative (Negative); Specific Gravity Urine 1.017 (1.000-1.030); Urobilinogen Urine Negative (Negative); pH Urine 5.5 (4.5-7.5)
[2024-03-21] MEDS: ENOXAPARIN INJ 40 MG/0.4 ML SYR SQ SCH (22:27)
[2024-03-22 03:59] LABS: Adenovirus PCR Not Detected (NotDetected); Bordetella parapertussis PCR Not Detected (NotDetected); Bordetella pertussis PCR Not Detected (NotDetected); Chlamydia pneumoniae PCR Not Detected (NotDetected); Coronavirus 229E PCR Not Detected (NotDetected); Coronavirus CoV-2 (COVID19)PCR Not Detected (NotDetected); Coronavirus HKU1 PCR Not Detected (NotDetected); Coronavirus NL63 PCR Not Detected (NotDetected); Coronavirus OC43PCR Not Detected (NotDetected); Human Metapneumovirus PCR Not Detected (NotDetected); Influenza A PCR Not Detected (NotDetected); Influenza B PCR Not Detected (NotDetected); Mycoplasma pneumoniae PCR Not Detected (NotDetected); Parainfluenza Virus 1 PCR Not Detected (NotDetected); Parainfluenza Virus 2 PCR Not Detected (NotDetected); Parainfluenza Virus 3 PCR Not Detected (NotDetected); Parainfluenza Virus 4 PCR Not Detected (NotDetected); Respiratory Syncytial VirusPCR Not Detected (NotDetected); Rhinovirus/Enterovirus PCR Not Detected (NotDetected)
[2024-03-22 06:43] LABS: Basophils # (auto) 0.09 K/uL (0.00-0.20); Basophils % (auto) 0.9 %; Eosinophils # (auto) 0.24 K/uL (0.00-0.50); Eosinophils % (auto) 2.4 %; Hematocrit (blood only) 48.7 % (42.0-52.0); Hemoglobin 16.7 g/dl (14.0-18.0); Immature Granulocytes # (auto) 0.03 K/uL (0.01-0.20); Immature Granulocytes % (auto) 0.3 %; Lymphocytes # (auto) 3.06 K/uL (1.20-3.40); Lymphocytes % (auto) 30.6 %; Mean Corpuscular Hemoglobin 31.8 pg (25.0-34.0); Mean Corpuscular Hgb Conc 34.3 g/dL (32.0-36.0); Mean Corpuscular Volume 92.8 fL (80.0-100.0); Monocytes # (auto) 0.77 K/uL (0.11-0.59); Monocytes % (auto) 7.7 %; Neutrophils % (auto) 58.1 %; Platelet Count 170 K/uL (130-400); RDW Coefficient of Variation 13.4 % (11.5-14.5); RDW Standard Deviation 45.6 fL (36.4-46.3); Red Blood Count 5.25 M/uL (4.70-6.10); White Blood Count 9.99 K/ul (4.8-10.8)
[2024-03-22 06:59] LABS: Calcium 9.3 mg/dl (8.6-10.3); Chol HDL Ratio 2.6 (0-5); Creatinine Clr Calc Pharmacy 72.5 ml/min; Magnesium 1.9 mg/dl (1.7-2.4); Potassium 3.9 mmol/L (3.5-5.1)
[2024-03-22] MEDS: hydroCHLOROthiazide 25 MG TAB PO SCH (08:37)
[2024-03-22] MEDS: MAGNESIUM SULFATE / D5W 1 GM/100 ML BAG IV ONE (08:40)
[2024-03-22] MEDS: MAGNESIUM OXIDE 400 MG TAB PO SCH ×2 (08:51→19:51)
--- NOTE | 2024-03-22 12:24 | Pharmacy Report ---
- Date of Service March 22, 2024 - Pharmacy CVA/TIA Medication Review Medications to Prevent Stroke handout has been added to the patients discharge packet. Antiplatelet(s) * Aspirin 81mg PO and clopidogrel 75mg PO daily x21 days Cholesterol * High intensity statin: atorvastatin 40 mg daily DVT Prophylaxis * Enoxaparin SQ Therapeutic Anticoagulation * No history of Afib/Aflutter noted Type 2 Diabetes * Patient has T2DM, but per Dr. Chavez, a diabetes medication with proven CVD benefit will be deferred to their outpatient provider due to familiarity with risks/benefits of such therapies. "Medications to prevent stroke" handout has already been added to the patient's discharge packet, which instructs the patient to follow up with their outpatient provider to evaluate which diabetes medication with proven CVD benefit is best for them
--- NOTE | 2024-03-22 12:51 | Discharge Summary ---
Discharge Summary Date of Service March 22, 2024 Principal Dx & Hospital Course #1 = Principal Diagnosis (1) TIA (transient ischemic attack): (2) H/O: CVA (cerebrovascular accident): (3) History of right-sided carotid endarterectomy: (4) Hypercholesterolemia: (5) Hypertension: (6) Diabetes mellitus type 2, uncontrolled: (7) Cigarette smoker: (8) COPD (chronic obstructive pulmonary disease): (9) Obesity (BMI 30.0-34.9): Plan 73-year-old male with past medical history of CVA, right carotid stenosis status post right CEA in 2019, essential hypertension, hyperlipidemia, type 2 diabetes mellitus, COPD, tobacco use disorder, obesity who presents to the ED with 2-day history of left-sided paresthesias involving the left face, left upper extremity and left lower extremity which have all resolved since admission. #TIA #History of CVA #History of right carotid endarterectomy #Essential hypertension #Hyperlipidemia #Mild aortic stenosis CT head, CTA head and neck were all unremarkable MRI of the brain did not show any acute infarct I spoke with neurologist Dr. Lemus on the phone yesterday regarding this patient: He reviewed the history, patient's scans and believes this patient may have had a TIA Dr. Lemus has recommended continuing Plavix 75 mg daily and adding aspirin 81 mg daily for 3 weeks for dual antiplatelet therapy for 3 weeks, continuing statin, checking fasting lipid in a.m. and for patient to follow-up with neurology as outpatient on discharge Patient has seen Dr. Pedraza in the past: Will have patient follow-up with Dr. Pedraza on discharge Triglycerides of 135, cholesterol is 97, LDL is 33, VLDL is 27, HDL is 37 A1c is 7.7 from 03/09/2024 B12 is 1310 TSH is 2.265 Continue Plavix plus statin Continue aspirin 81 mg daily for 3 weeks Continue losartan 50 mg p.o. daily plus hydrochlorothiazide 25 mg p.o. 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 Patient states his primary care provider tried to put him on Rybelsus but patient was reluctant to start it. Patient does not want to start any new medications but is willing to follow-up with endocrinology outpatient I have given patient information for Dr. Callahan from endocrinology and asked patient to follow-up with them regarding diabetes management. Importance of diabetes management in setting of cardiovascular disease discussed with patient and patient verbalized understanding this. Lifestyle counseling regarding diet, exercise and weight loss provided in great detail #COPD #Tobacco use disorder Smoking cessation counseling provided Patient agreeable to using nicotine replacement patch 2 view chest x-ray reviewed and shows chronic emphysema, no evidence of infiltrates Continue home inhalers Patient not requiring oxygen and is not in COPD exacerbation Patient states he has never seen a racebook writer and has never had pulmonary function test. Discussed following up with pulmonology and given him information for Dr. Staley for patient to make appointment as outpatient as I believe patient would also benefit from not only PFTs but also an outpatient sleep study which can be arranged to pulmonology #Mild leukocytosis: Resolved Patient is afebrile, chest x-ray shows no evidence of infection Bio fire was negative Urinalysis was negative for signs of infection White count has normalized Outpatient follow-up with PCP Patient seen and examined. He is stable for discharge home. I have gone over the discharge care plan, medications and follow-up with the patient in great detail and answered all his questions. This discharge took greater than 30 minutes to coordinate Admission HPI Per Admitting Provider Ceasar Cooper is a pleasant 73yo right-hand dominant male with history of HLP, DM, COPD, prior CVA and carotid artery disease s/p right endarterectomy presenting with left sided numbness. Patient reports yesterday around 15:00 he developed left sided numbness and tingling involving his left fact, LUE and LLE. This persisted throughout the day. Last night he woke up around 03:00 to use the bathroom and felt unsteady on his feet and dizzy. His dizziness has subsided and the numbness of his LLE has improved somewhat. He still has numbness of his LUE and left face. He denies weakness, CONNELL, visual changes, neck pain, difficulties with speech. Denies chest pain, palpitations, SOB, abdominal pain, nausea, vomiting or diar tomas. No additional complaints at this time. In the ER patient is afebrile, hypertensive otherwise stable. ER Course: ASA 324mg Discharge Exam General: No acute distress Psych: Awake and alert HEENT: Anicteric sclera, moist oral mucosa CVS: Regular rate and rhythm Lungs: Bilateral air entry, no wheezing noted Abdomen: Soft, nontender, no rebound, no guarding Ext: No lower extremity edema, no calf tenderness Neuro: No focal motor deficits noted Discharge Plan Discharge Items Patient Disposition: Home - Self-Care Reason For Visit: PARESTHESIA,DIZZINESS,?CVA Discharge Diagnosis: #TIA #History of CVA #History of right carotid endarterectomy #Essential hypertension #Hyperlipidemia #Type 2 diabetes mellitus #COPD #Tobacco use disorder #Obesity #Mild aortic stenosis Activity: As commented below Activity Comment: As tolerated Driving/Machine Use: No driving until cleared by PCP/neurology Non-emergency contact: Primary Care Provider Call non-emergency contact if: you have any medication questions, your symptoms worsen and you have a fever Follow-up/Referrals: Leonid Yusuf MD [Physician] - Eugenio Pedraza MD [Physician] - Rolando Callahan MD [Physician] - Aida Staley MD, [facility] [Physician] - Geovanny Sommers DO [Primary Care Provider] - Diet: Carb Consistent or DM2, Heart Healthy and Low Sodium (2gm) Addtl Attending Provider Instructions: DISCHARGE INSTRUCTION TO PATIENT/FAMILY: Follow-up with your primary care provider within 1 week regarding: Posthospital discharge, medication review, medication refills and follow-up on all your medical problems, BP monitoring, referral to Pulmonology and Endocrinology if needed through PCP. Please take all your discharge medications, discharge information and discharge instructions to all your doctors appointments. Avoid all NSAIDs including ibuprofen, Motrin, Advil, Aleve, naproxen, meloxicam, Toradol, diclofenac You were diagnosed with a TIA and you have a history of stroke: Continue with Plavix 75 mg daily. In addition to Plavix, neurology has recommended you take aspirin 81 mg p.o. daily for 3 weeks until April 11, 2024. Please follow-up with neurology Dr. Pedraza in 2 to 3 weeks time on discharge No driving until you are cleared by your PCP/neurologist on follow-up Please stop smoking: You already have COPD and history of CVA and carotid artery stenosis. These conditions can get worse with smoking Follow up with Booth Cashier (Lung Doctor) Dr. Staley as outpatient in 1 to 2 weeks re: COPD and getting Pulmonary Function Tests and Outpatient Sleep Study Follow up with Accounts Receivable Representative (Industrial Therapist) Dr. Rolando Callahan as outpatient in 1 to 2 weeks re: Diabetes Management Follow-up with the outpatient Regrader Dr. Leonid Yusuf regarding echo findings showing aortic stenosis Labs through PCP in 1 to 2 weeks: CBC, CMP, MG Pending Studies at Discharge: No Stand-Alone Forms: My [facility] DosYogures, Smoking Cessation, Medications to Prevent Stroke Medications and DC Order Prescriptions: New nicotine 7 mg/24 hr Patch 24 Hour 1 patch transdermal QAM Qty: 7 0RF aspirin 81 mg Tablet,Delayed Release (Dr/Ec) 81 mg PO QAM Qty: 20 0RF Rx Instructions: for total of 21 days albuterol sulfate [Ventolin HFA] 90 mcg/actuation Hfa Aerosol Inhaler 2 puff inhalation Q6H PRN (Reason: shortness of breath or wheezing) Qty: 8.5 0RF Continued budesonide-formoterol [Symbicort] 80-4.5 mcg/actuation HFA aerosol inhaler 1 inh inhalation BID Qty: 10.2 5RF Hold Instructions: Failed, attempting to get auth for Advair. hydrochlorothiazide 25 mg tablet 25 mg PO DAILY Qty: 90 1RF atorvastatin 40 mg tablet 40 mg PO DAILY Qty: 90 3RF (DME) OneTouch Ultra Test Strip See Rx Instructions .Route Qty: 100 8RF Rx Instructions: check blood sugars once a day cyanocobalamin (vitamin B-12) 1,000 mcg capsule 1,000 mcg PO DAILY Qty: 90 3RF pyridoxine (vitamin B6) 50 mg tablet 50 mg PO DAILY Qty: 90 3RF pioglitazone 15 mg tablet 15 mg PO DAILY Qty: 90 3RF potassium chloride 10 mEq tablet extended release 10 meq PO DAILY Qty: 90 3RF metformin 500 mg tablet 1,000 mg PO BID Qty: 360 3RF losartan 50 mg tablet 50 mg PO DAILY Qty: 90 3RF folic acid 1 mg tablet 2.5 mg PO QAM 90 Days Qty: 225 3RF clopidogrel 75 mg tablet 75 mg PO QAM Qty: 90 3RF Discontinued fluticasone propion-salmeterol 100-50 mcg/dose blister with device 1 inh inhalation BID Qty: 180 3RF Discharge Orders: Discharge Order (Routine); Ordered 03/22/24 Ordered By: Clinton Kothari/Other Patient Handouts: COPD Quit Smoking, Understanding High Blood Pressure, TIA Dc, Treatment of Diabetes Admission Data Admit Date/Time: 03/21/24 05:31 Attending Provider: Clinton Chavez Admit Provider: Leeanna Doyle Primary Care Provider: Geovanny Sommers Other Providers: Leeanna Doyle Hospital Stay Data Consultations 03/21/24 04:27 ED Decision to Admit Stat Diagnostic Imagining Performed 03/21/24 03:57 CT angio head w con Stat CT angio neck with con Stat CT head/brain wo con Stat 03/21/24 08:25 MR brain wo/w con Routine Head CT 03/21/24 03:57 EXAM: CT head/brain wo con CLINICAL HISTORY: neuro deficit, acute stroke suspected TECHNIQUE: Axial noncontrast CT scan of the brain was performed from the skull base to the high parietal region. One of the following dose reduction techniques were utilized for this exam: Automated exposure control, adjustment of the mA and/or kV according to patient size, use of iterative reconstruction. COMPARISON: 06/22/2020. FINDINGS: A left frontal small hypodense area of chronic infarction is noted. Sepulveda-white matter differentiation is maintained. Prominent ventricular system and extra-axial CSF spaces are suggestive of age-related involutional changes. No midline shifts or deformity. No intracerebral or extra axial hematoma. Normal CT appearance of the posterior fossa structures namely the cerebellar hemispheres, brainstem and cerebellar peduncles. The cerebello-pontine angles are clear. The osseous structures in the skull base are unremarkable. No definite calvarium fractures. Scanned paranasal sinuses are clear. IMPRESSION: 1. No evidence of established infarction, intracranial or extracranial hemorrhage. Early changes of stroke may not be detected on a CT scan. If strong clinical suspicion of stroke then suggest MRI with diffusion-weighted imaging. 2. Left frontal old lacunar infarction. 3. Appropriate age-related involutional changes. 4. No significant interval changes from the previous study. Electronically signed by Carmela Lipscomb 03-21-2024 04:46 AM Head CTA 03/21/24 03:57 EXAM: CT angio head w con CLINICAL HISTORY: neuro deficit, acute stroke suspected 116 cc opti 320 TECHNIQUE: Axial CT angiography of the head was done with 116 cc opti 320 IV contrast and sagittal and coronal reformats with MIP reconstructions. One of these 3D techniques was utilized: Maximum Intensity Pixel (MIP), 3D Reconstructed Images, Volume Rendered Images, Surface Shaded Rendering. One of the following dose reduction techniques were utilized for this exam: Automated exposure control, adjustment of the mA and/or kV according to patient size, and use of iterative reconstruction. One of the following dose reduction techniques was utilized for this exam.Automated exposure control, adjustment of the mA and/or kV according to patient size, and use of iterative reconstruction. COMPARISON: None. FINDINGS: Intracranial Arteries: The intracranial portions of the internal carotid arteries, anterior cerebral arteries, middle cerebral arteries, posterior cerebral arteries, basilar artery, and vertebral arteries are well-opacified. No evidence of aneurysm, stenosis, or occlusion. Mild is subsequently calcification noted. [place]: The [place] is complete. Normal caliber of the communicating arteries. No vascular malformations or aneurysms. Venous Structures: Normal opacification of the major dural venous sinuses. No evidence of venous sinus thrombosis. Brain Parenchyma: Normal attenuation of the cerebral hemispheres, cerebellum, and brainstem. No evidence of acute infarct, hemorrhage, or mass effect. Skull and Meninges: Normal appearance of the skull. No evidence of meningeal enhancement or thickening. Orbits: Normal appearance of the globes, optic nerves, and extraocular muscles. No evidence of orbital masses or abnormal signal. IMPRESSION: No evidence of significant vascular abnormalities. Electronically signed by Carmela Lipscomb 03-21-2024 04:49 AM Neck CTA 03/21/24 03:57 EXAM: CT angio neck with con CLINICAL HISTORY: neuro deficit, acute stroke suspected 116 cc opti 320 TECHNIQUE: CT angiography study of the neck vessels with 116 cc opti 320 IV contrast was performed and multiple axial sections were obtained with coronal and sagittal reconstructions. One of the following dose reduction techniques were utilized for this exam: Automated exposure control, adjustment of the mA and/or kV according to patient size, and use of iterative reconstruction. One of these 3D techniques was utilized: Maximum Intensity Pixel (MIP), 3D Reconstructed Images, Volume Rendered Images, Surface Shaded Rendering. COMPARISON: None. FINDINGS: Carotid Arteries: Atherosclerotic calcification at bilateral internal carotid arteries bulb causing stenosis of about 48% at the left side and 43% at the right side. Otherwise, common carotid arteries, internal carotid arteries, and external carotid arteries bilaterally are well-opacified. No evidence of significant stenosis, occlusion, or aneurysm. No significant atherosclerotic changes. Vertebral Arteries: Vertebral arteries bilaterally are well-opacified. No evidence of significant stenosis, occlusion, or aneurysm. No significant atherosclerotic changes. Jugular Veins: Normal opacification of the internal and external jugular veins bilaterally. No evidence of thrombosis or compression. Subclavian Arteries: Subclavian arteries bilaterally are well-opacified. No evidence of significant stenosis, occlusion, or aneurysm. Thyroid Gland: Normal size and morphology of the thyroid gland. No masses or nodules. Soft Tissues: Normal appearance of the surrounding soft tissues of the neck. No abnormal masses or lymphadenopathy. IMPRESSION: Atherosclerotic calcification at bilateral internal carotid arteries with no significant stenosis, aneurysmal dilatation or vascular malformation. Electronically signed by Carmela Lipscomb 03-21-2024 04:51 AM Brain MRI 03/21/24 08:25 MR brain wo/w con HISTORY: 73 years-old Male ?CVA acute strokelike symptoms COMPARISON: Head CT of same day, brain MRI 06/22/2020 TECHNIQUE: Multiplanar multisequence MRI of the brain was obtained with and without IV contrast FINDINGS: No restricted diffusion. Subcentimeter chronic right cerebellar lacunar infarct. Midline structures appear unremarkable. Degenerative changes of the cervical spine. No pathologic blooming artifact. No acute intracranial hemorrhage, midline shift, abnormal extra-axial collection, hydrocephalus or intra-axial mass. The cerebral venous sinuses and major arterial flow voids appear patent. Skull, orbits and soft tissues are within normal limits. Involutional changes with moderate T2/FLAIR hyperintense foci noted throughout the white matter, mildly progressed from prior. No abnormal enhancement. IMPRESSION: 1. No acute intracranial abnormality. No acute or subacute infarct. 2. No abnormal enhancement. 3. Involutional changes with chronic microvascular ischemic disease. ACT 112: Negative or not required by law. The above report was generated using voice recognition software. It may contain grammatical, syntax or spelling errors. Electronically signed by: Marcelo Urban M.D. 03/21/2024 10:37 AM Chest X-Ray 03/21/24 08:45 XR chest 2V PA/lateral HISTORY: 73 years-old Male LEUKOCYTOSIS, COPD chronic shortness of breath COMPARISON: 06/22/2020 TECHNIQUE: PA and lateral views of the chest FINDINGS: Cardiomediastinal and hilar silhouettes are unchanged. There is chronic interstitial coarsening of the lungs. Emphysema. No pneumothorax, pleural effusion or airspace consolidation. Spondylotic spurring of the spine. IMPRESSION: 1. Emphysema without acute process. 2. Chronic fibrotic changes again noted. ACT 112: Negative or not required by law. The above report was generated using voice recognition software. It may contain grammatical, syntax or spelling errors. Electronically signed by: Marcelo Urban M.D. 03/21/2024 10:48 AM Laboratory Results - last 48 hr 03/21/24 03/21/24 03/21/24 03:57 09:25 09:52 WBC 12.12 H 11.95 H RBC 5.14 5.53 Hgb 16.3 17.4 Hct 47.6 52.3 H MCV 92.6 94.6 MCH 31.7 31.5 MCHC 34.2 33.3 RDW Std Deviation 46.0 47.2 H RDW Coeff of Dominga 13.4 13.5 Plt Count 184 200 MPV 12.6 H 12.0 Immature Gran % (Auto) 0.2 0.3 Neut % (Auto) 52.2 67.3 Lymph % (Auto) 36.4 24.5 [place] % (Auto) 7.4 5.8 Eos % (Auto) 2.9 1.4 Baso % (Auto) 0.9 0.7 Neut # (Auto) 6.32 8.04 H Lymph # (Auto) 4.41 H 2.93 [place] # (Auto) 0.90 H 0.69 H Eos # (Auto) 0.35 0.17 Baso # (Auto) 0.11 0.08 Immature Gran # (Auto) 0.03 0.04 PT 10.6 INR 1.0 APTT 29 PTT Ratio 1.1 Sodium 137 137 Potassium 3.8 4.1 Chloride 104 101 Carbon Dioxide 22 27 Anion Gap 11 9 BUN 18 15 Creatinine 1.13 1.15 Est Cr Clr Drug Dosing 74.3 73.0 eGFR 69.06 67.62 BUN/Creatinine Ratio 15.9 13.0 Glucose 107 H 186 H POC Glucose 168 H Calcium 9.5 10.0 Magnesium 1.7 2.1 Total Bilirubin 0.6 AST 28 ALT 30 Alkaline Phosphatase 76 Troponin I High Sens 7.0 Total Protein 7.5 Albumin 4.1 Globulin 3.4 Albumin/Globulin Ratio 1.2 Triglycerides Cholesterol LDL Cholesterol, Calc VLDL Cholesterol, Calc HDL Cholesterol Cholesterol/HDL Ratio Vitamin B12 1310 H TSH 2.265 Urine Color Urine Appearance Urine pH Ur Specific [place] Urine Protein Urine Glucose (UA) Urine Ketones Urine Blood Urine Nitrite Urine Bilirubin Urine Urobilinogen Ur Leukocyte Esterase Adenovirus (PCR) B. pertussis DNA (PCR) B.parapertussis DNA PCR C. pneumoniae DNA (PCR) Coronavirus OC43 (PCR) Coronavirus HKU1 (PCR) Coronavirus 229E (PCR) SARS-CoV-2 (PCR) Coronavirus NL63 (PCR) Human Metapneumovir PCR Influenza Type A (PCR) Influenza Type B (PCR) M. pneumoniae (PCR) Parainfluenza 1 (PCR) Parainfluenza 2 (PCR) Parainfluenza 3 (PCR) Parainfluenza 4 (PCR) RSV (PCR) Entero/Rhino (PCR) 03/21/24 03/21/24 03/21/24 13:24 17:01 20:12 WBC RBC Hgb Hct MCV MCH MCHC RDW Std Deviation RDW Coeff of Dom[place] Plt Count MPV Immature Gran % (Auto) Neut % (Auto) Lymph % (Auto) [place] % (Auto) Eos % (Auto) Baso % (Auto) Neut # (Auto) Lymph # (Auto) [place] # (Auto) Eos # (Auto) Baso # (Auto) Immature Gran # (Auto) PT INR APTT PTT Ratio Sodium Potassium Chloride Carbon Dioxide Anion Gap BUN Creatinine Est Cr Clr Drug Dosing eGFR BUN/Creatinine Ratio Glucose POC Glucose 153 H 167 H 150 H Calcium Magnesium Total Bilirubin AST ALT Alkaline Phosphatase Troponin I High Sens Total Protein Albumin Globulin Albumin/Globulin Ratio Triglycerides Cholesterol LDL Cholesterol, Calc VLDL Cholesterol, Calc HDL Cholesterol Cholesterol/HDL Ratio Vitamin B12 TSH Urine Color Urine Appearance Urine pH Ur Specific [place] Urine Protein Urine Glucose (UA) Urine Ketones Urine Blood Urine Nitrite Urine Bilirubin Urine Urobilinogen Ur Leukocyte Esterase Adenovirus (PCR) B. pertussis DNA (PCR) B.parapertussis DNA PCR C. pneumoniae DNA (PCR) Coronavirus OC43 (PCR) Coronavirus HKU1 (PCR) Coronavirus 229E (PCR) SARS-CoV-2 (PCR) Coronavirus NL63 (PCR) Human Metapneumovir PCR Influenza Type A (PCR) Influenza Type B (PCR) M. pneumoniae (PCR) Parainfluenza 1 (PCR) Parainfluenza 2 (PCR) Parainfluenza 3 (PCR) Parainfluenza 4 (PCR) RSV (PCR) Entero/Rhino (PCR) 03/21/24 03/22/24 03/22/24 Unknown 03:03 06:24 WBC 9.99 RBC 5.25 Hgb 16.7 Hct 48.7 MCV 92.8 MCH 31.8 MCHC 34.3 RDW Std Deviation 45.6 RDW Coeff of Doming[place] 13.4 Plt Count 170 MPV 12.0 Immature Gran % (Auto) 0.3 Neut % (Auto) 58.1 Lymph % (Auto) 30.6 [place] % (Auto) 7.7 Eos % (Auto) 2.4 Baso % (Auto) 0.9 Neut # (Auto) 5.80 Lymph # (Auto) 3.06 [place] # (Auto) 0.77 H Eos # (Auto) 0.24 Baso # (Auto) 0.09 Immature Gran # (Auto) 0.03 PT INR APTT PTT Ratio Sodium 137 Potassium 3.9 Chloride 105 Carbon Dioxide 23 Anion Gap 9 BUN 16 Creatinine 1.14 Est Cr Clr Drug Dosing 72.5 eGFR 68.33 BUN/Creatinine Ratio 14.0 Glucose 149 H POC Glucose Calcium 9.3 Magnesium 1.9 Total Bilirubin AST ALT Alkaline Phosphatase Troponin I High Sens Total Protein Albumin Globulin Albumin/Globulin Ratio Triglycerides 135 Cholesterol 97 LDL Cholesterol, Calc 33 VLDL Cholesterol, Calc 27 HDL Cholesterol 37 Cholesterol/HDL Ratio 2.6 Vitamin B12 TSH Urine Color Yellow Urine Appearance Clear Urine pH 5.5 Ur Specific [place] 1.017 Urine Protein Negative Urine Glucose (UA) Negative Urine Ketones Negative Urine Blood Negative Urine Nitrite Negative Urine Bilirubin Negative Urine Urobilinogen Negative Ur Leukocyte Esterase Negative Adenovirus (PCR) Not Detected B. pertussis DNA (PCR) Not Detected B.parapertussis DNA PCR Not Detected C. pneumoniae DNA (PCR) Not Detected Coronavirus OC43 (PCR) Not Detected Coronavirus HKU1 (PCR) Not Detected Coronavirus 229E (PCR) Not Detected SARS-CoV-2 (PCR) Not Detected Coronavirus NL63 (PCR) Not Detected Human Metapneumovir PCR Not Detected Influenza Type A (PCR) Not Detected Influenza Type B (PCR) Not Detected M. pneumoniae (PCR) Not Detected Parainfluenza 1 (PCR) Not Detected Parainfluenza 2 (PCR) Not Detected Parainfluenza 3 (PCR) Not Detected Parainfluenza 4 (PCR) Not Detected RSV (PCR) Not Detected Entero/Rhino (PCR) Not Detected 03/22/24 03/22/24 08:04 12:11 WBC RBC Hgb Hct MCV MCH MCHC RDW Std Deviation RDW Coeff of Dominga Plt Count MPV Immature Gran % (Auto) Neut % (Auto) Lymph % (Auto) [place] % (Auto) Eos % (Auto) Baso % (Auto) Neut # (Auto) Lymph # (Auto) [place] # (Auto) Eos # (Auto) Baso # (Auto) Immature Gran # (Auto) PT INR APTT PTT Ratio Sodium Potassium Chloride Carbon Dioxide Anion Gap BUN Creatinine Est Cr Clr Drug Dosing eGFR BUN/Creatinine Ratio Glucose POC Glucose 174 H 188 H Calcium Magnesium Total Bilirubin AST ALT Alkaline Phosphatase Troponin I High Sens Total Protein Albumin Globulin Albumin/Globulin Ratio Triglycerides Cholesterol LDL Cholesterol, Calc VLDL Cholesterol, Calc HDL Cholesterol Cholesterol/HDL Ratio Vitamin B12 TSH Urine Color Urine Appearance Urine pH Ur Specific [place] Urine Protein Urine Glucose (UA) Urine Ketones Urine Blood Urine Nitrite Urine Bilirubin Urine Urobilinogen Ur Leukocyte Esterase Adenovirus (PCR) B. pertussis DNA (PCR) B.parapertussis DNA PCR C. pneumoniae DNA (PCR) Coronavirus OC43 (PCR) Coronavirus HKU1 (PCR) Coronavirus 229E (PCR) SARS-CoV-2 (PCR) Coronavirus NL63 (PCR) Human Metapneumovir PCR Influenza Type A (PCR) Influenza Type B (PCR) M. pneumoniae (PCR) Parainfluenza 1 (PCR) Parainfluenza 2 (PCR) Parainfluenza 3 (PCR) Parainfluenza 4 (PCR) RSV (PCR) Entero/Rhino (PCR) Pending Results Patient Have Any Pending Studies at Discharge: No Discharge Instructions Given to Patient (Per Discharging Provider) DISCHARGE INSTRUCTION TO PATIENT/FAMILY: Follow-up with your primary care provider within 1 week regarding: Posthospital discharge, medication review, medication refills and follow-up on all your medical problems, BP monitoring, referral to Pulmonology and Endocrinology if needed through PCP. Please take all your discharge medications, discharge information and discharge instructions to all your doctors appointments. Avoid all NSAIDs including ibuprofen, Motrin, Advil, Aleve, naproxen, meloxicam, Toradol, diclofenac You were diagnosed with a TIA and you have a history of stroke: Continue with Plavix 75 mg daily. In addition to Plavix, neurology has recommended you take aspirin 81 mg p.o. daily for 3 weeks until April 11, 2024. Please follow-up with neurology Dr. Pedraza in 2 to 3 weeks time on discharge No driving until you are cleared by your PCP/neurologist on follow-up Please stop smoking: You already have COPD and history of CVA and carotid artery stenosis. These conditions can get worse with smoking Follow up with Booth Cashier (Lung Doctor) Dr. Staley as outpatient in 1 to 2 weeks re: COPD and getting Pulmonary Function Tests and Outpatient Sleep Study Follow up with Accounts Receivable Representative (Industrial Therapist) Dr. Rolando Callahan as outpatient in 1 to 2 weeks re: Diabetes Management Follow-up with the outpatient Regrader Dr. Leonid Yusuf regarding echo findings showing aortic stenosis Labs through PCP in 1 to 2 weeks: CBC, CMP, MG Coding Level of Care Code 78845 INP/OBS DISCH >30 MIN Diagnoses TIA (transient ischemic attack) G45.9 H/O: CVA (cerebrovascular accident) Z86.73 History of right-sided carotid endarterectomy Z98.890 Hypercholesterolemia E78.00 Hypertension I10 Uncontrolled type 2 diabetes mellitus with hyperglycemia E11.65 Glycemic state: with hyperglycemia Cigarette smoker F17.210 Chronic obstructive pulmonary disease, unspecified COPD type J44.9 COPD type: unspecified COPD Obesity (BMI 30.0-34.9) E66.811
--- NOTE | 2024-03-22 14:28 | Hospitalist Progress Note ---
Date of Service March 22, 2024 Assessment & Plan (1) TIA (transient ischemic attack): (2) H/O: CVA (cerebrovascular accident): (3) History of right-sided carotid endarterectomy: (4) Hypercholesterolemia: (5) Hypertension: (6) Diabetes mellitus type 2, uncontrolled: (7) Cigarette smoker: (8) COPD (chronic obstructive pulmonary disease): (9) Obesity (BMI 30.0-34.9): Plan 73-year-old male with past medical history of CVA, right carotid stenosis status post right CEA in 2019, essential hypertension, hyperlipidemia, type 2 diabetes mellitus, COPD, tobacco use disorder, obesity who presents to the ED with 2-day history of left-sided paresthesias involving the left face, left upper extremity and left lower extremity which have all resolved since admission. #TIA #History of CVA #History of right carotid endarterectomy #Essential hypertension #Hyperlipidemia #Mild aortic stenosis #Nonsustained 14 beat run of V. tach CT head, CTA head and neck were all unremarkable MRI of the brain did not show any acute infarct I spoke with neurologist Dr. Lemus on the phone yesterday regarding this patient: He reviewed the history, patient's scans and believes this patient may have had a TIA Dr. Lemus has recommended continuing Plavix 75 mg daily and adding aspirin 81 mg daily for 3 weeks for dual antiplatelet therapy for 3 weeks, continuing statin, checking fasting lipid in a.m. and for patient to follow-up with neurology as outpatient on discharge Patient has seen Dr. Pedraza in the past: Will have patient follow-up with Dr. Pedraza on discharge Triglycerides of 135, cholesterol is 97, LDL is 33, VLDL is 27, HDL is 37 A1c is 7.7 from 03/09/2024 B12 is 1310 TSH is 2.265 Continue Plavix plus statin Continue aspirin 81 mg daily for 3 weeks Continue losartan 50 mg p.o. daily plus hydrochlorothiazide 25 mg p.o. daily 2D echo showed left ventricular systolic function is normal, EF is 55 to 60%, grade 1 diastolic dysfunction noted, mild valvular aortic stenosis noted and there is moderate concentric LVH Continue telemetry monitoring Magnesium IV replacement and monitor magnesium and potassium levels given run of V. tach Patient will need filtration operator/event monitor on discharge PT saw the patient and recommended home for discharge Patient advised to follow-up with his healthcare representative and neurologist on discharge #Type 2 diabetes mellitus #Obesity: BMI 34.6 A1c is 7.7 from 03/09/2024 Pharmacy following for glycemic control Discussed GLP-1 agonist and SGLT2 inhibitor. Patient states his primary care provider tried to put him on Rybelsus but patient was reluctant to start it. Patient does not want to start any new medications but is willing to follow-up with endocrinology outpatient I have placed information for Dr. Callahan from endocrinology on his discharge and asked patient to follow-up with them regarding diabetes management. Importance of diabetes management in setting of cardiovascular disease discussed with patient and patient verbalized understanding this. Lifestyle counseling regarding diet, exercise and weight loss provided in great detail #COPD #Tobacco use disorder Smoking cessation counseling provided Patient agreeable to using nicotine replacement patch 2 view chest x-ray reviewed and shows chronic emphysema, no evidence of infiltrates Continue home inhalers Patient not requiring oxygen and is not in COPD exacerbation Patient states he has never seen a developer programmer and has never had pulmonary function test. Discussed following up with pulmonology and given him information for Dr. Staley for patient to make appointment as outpatient as I believe patient would also benefit from not only PFTs but also an outpatient sleep study which can be arranged to pulmonology #Mild leukocytosis: Resolved Patient is afebrile, chest x-ray shows no evidence of infection Bio fire was negative Urinalysis was negative for signs of infection White count has normalized Outpatient follow-up with PCP CODE STATUS: Full code DVT prophylaxis: Lovenox 40 mg subcutaneous daily Discharge planning Home tomorrow if no telemetry events noted: Patient will need filtration operator for discharge with outpatient follow-up with cardiology Care plan discussed with patient, nursing staff and daughter updated at bedside Admission and Anticipated Discharge Date Admission Date: March 21, 2024 Subjective Patient seen and examined Labs, radiology and telemetry reviewed Daughter at bedside Ambulating without any issues He was seen by PT and cleared to go home Prior to discharge, patient had a 14 beat run of V. tach Patient denies any chest pain or shortness of breath Denies any nausea, vomiting, diarrhea abdominal pain He denies any cough, fever or chills Physical Exam Physical Exam: General: No acute distress Psych: Awake and alert HEENT: Anicteric sclera, moist oral mucosa CVS: Regular rate and rhythm Lungs: Bilateral air entry, no wheezing noted Abdomen: Soft, nontender, no rebound, no guarding Ext: No lower extremity edema, no calf tenderness Neuro: No focal motor deficits noted Results & Data Results & Data Vital Signs (Past 12 Hours) Vital Signs Temp Pulse Pulse Pulse Resp BP Pulse Ox 03/22/24 13:07 36.4 C L 68 76 16 131/85 96 03/22/24 11:56 36.4 C L 76 16 131/85 96 03/22/24 07:20 03/22/24 07:18 36.8 C 61 18 116/79 94 03/22/24 07:10 60 03/22/24 03:07 36.7 C 67 16 149/89 H 92 O2 Del Method 03/22/24 13:07 03/22/24 11:56 Room Air 03/22/24 07:20 Room Air 03/22/24 07:18 Room Air 03/22/24 07:10 03/22/24 03:07 Room Air Laboratory Results 03/22/24 03/22/24 03/22/24 12:11 08:04 06:24 WBC 9.99 RBC 5.25 Hgb 16.7 Hct 48.7 MCV 92.8 MCH 31.8 MCHC 34.3 RDW Std Deviation 45.6 RDW Coeff of Dominga 13.4 Plt Count 170 MPV 12.0 Immature Gran % (Auto) 0.3 Neut % (Auto) 58.1 Lymph % (Auto) 30.6 [place] % (Auto) 7.7 Eos % (Auto) 2.4 Baso % (Auto) 0.9 Neut # (Auto) 5.80 Lymph # (Auto) 3.06 [place] # (Auto) 0.77 H Eos # (Auto) 0.24 Baso # (Auto) 0.09 Immature Gran # (Auto) 0.03 Sodium 137 Potassium 3.9 Chloride 105 Carbon Dioxide 23 Anion Gap 9 BUN 16 Creatinine 1.14 Est Cr Clr Drug Dosing 72.5 eGFR 68.33 BUN/Creatinine Ratio 14.0 Glucose 149 H POC Glucose 188 H 174 H Calcium 9.3 Magnesium 1.9 Triglycerides 135 Cholesterol 97 LDL Cholesterol, Calc 33 VLDL Cholesterol, Calc 27 HDL Cholesterol 37 Cholesterol/HDL Ratio 2.6 Urine Color Urine Appearance Urine pH Ur Specific [place] Urine Protein Urine Glucose (UA) Urine Ketones Urine Blood Urine Nitrite Urine Bilirubin Urine Urobilinogen Ur Leukocyte Esterase Adenovirus (PCR) B. pertussis DNA (PCR) B.parapertussis DNA PCR C. pneumoniae DNA (PCR) Coronavirus OC43 (PCR) Coronavirus HKU1 (PCR) Coronavirus 229E (PCR) SARS-CoV-2 (PCR) Coronavirus NL63 (PCR) Human Metapneumovir PCR Influenza Type A (PCR) Influenza Type B (PCR) M. pneumoniae (PCR) Parainfluenza 1 (PCR) Parainfluenza 2 (PCR) Parainfluenza 3 (PCR) Parainfluenza 4 (PCR) RSV (PCR) Entero/Rhino (PCR) 03/22/24 03/21/24 03/21/24 03:03 Unknown 20:12 WBC RBC Hgb Hct MCV MCH MCHC RDW Std Deviation RDW Coeff of [place] Plt Count MPV Immature Gran % (Auto) Neut % (Auto) Lymph % (Auto) [place] % (Auto) Eos % (Auto) Baso % (Auto) Neut # (Auto) Lymph # (Auto) [place] # (Auto) Eos # (Auto) Baso # (Auto) Immature Gran # (Auto) Sodium Potassium Chloride Carbon Dioxide Anion Gap BUN Creatinine Est Cr Clr Drug Dosing eGFR BUN/Creatinine Ratio Glucose POC Glucose 150 H Calcium Magnesium Triglycerides Cholesterol LDL Cholesterol, Calc VLDL Cholesterol, Calc HDL Cholesterol Cholesterol/HDL Ratio Urine Color Yellow Urine Appearance Clear Urine pH 5.5 Ur Specific [place] 1.017 Urine Protein Negative Urine Glucose (UA) Negative Urine Ketones Negative Urine Blood Negative Urine Nitrite Negative Urine Bilirubin Negative Urine Urobilinogen Negative Ur Leukocyte Esterase Negative Adenovirus (PCR) Not Detected B. pertussis DNA (PCR) Not Detected B.parapertussis DNA PCR Not Detected C. pneumoniae DNA (PCR) Not Detected Coronavirus OC43 (PCR) Not Detected Coronavirus HKU1 (PCR) Not Detected Coronavirus 229E (PCR) Not Detected SARS-CoV-2 (PCR) Not Detected Coronavirus NL63 (PCR) Not Detected Human Metapneumovir PCR Not Detected Influenza Type A (PCR) Not Detected Influenza Type B (PCR) Not Detected M. pneumoniae (PCR) Not Detected Parainfluenza 1 (PCR) Not Detected Parainfluenza 2 (PCR) Not Detected Parainfluenza 3 (PCR) Not Detected Parainfluenza 4 (PCR) Not Detected RSV (PCR) Not Detected Entero/Rhino (PCR) Not Detected 03/21/24 17:01 WBC RBC Hgb Hct MCV MCH MCHC RDW Std Deviation RDW Coeff of [place] Plt Count MPV Immature Gran % (Auto) Neut % (Auto) Lymph % (Auto) [place] % (Auto) Eos % (Auto) Baso % (Auto) Neut # (Auto) Lymph # (Auto) [place] # (Auto) Eos # (Auto) Baso # (Auto) Immature Gran # (Auto) Sodium Potassium Chloride Carbon Dioxide Anion Gap BUN Creatinine Est Cr Clr Drug Dosing eGFR BUN/Creatinine Ratio Glucose POC Glucose 167 H Calcium Magnesium Triglycerides Cholesterol LDL Cholesterol, Calc VLDL Cholesterol, Calc HDL Cholesterol Cholesterol/HDL Ratio Urine Color Urine Appearance Urine pH Ur Specific [place] Urine Protein Urine Glucose (UA) Urine Ketones Urine Blood Urine Nitrite Urine Bilirubin Urine Urobilinogen Ur Leukocyte Esterase Adenovirus (PCR) B. pertussis DNA (PCR) B.parapertussis DNA PCR C. pneumoniae DNA (PCR) Coronavirus OC43 (PCR) Coronavirus HKU1 (PCR) Coronavirus 229E (PCR) SARS-CoV-2 (PCR) Coronavirus NL63 (PCR) Human Metapneumovir PCR Influenza Type A (PCR) Influenza Type B (PCR) M. pneumoniae (PCR) Parainfluenza 1 (PCR) Parainfluenza 2 (PCR) Parainfluenza 3 (PCR) Parainfluenza 4 (PCR) RSV (PCR) Entero/Rhino (PCR) PG Care Time/CCT Total # of Minutes Spent Total Time Spent with Patient: Total time spent is greater than 50% in coordination of care (as documented) at patient's floor/unit and/or counseling patient: Coding Level of Care Code 25509 SUB INP/OBS CARE 3/50MIN Diagnoses TIA (transient ischemic attack) G45.9 H/O: CVA (cerebrovascular accident) Z86.73 History of right-sided carotid endarterectomy Z98.890 Hypercholesterolemia E78.00 Hypertension I10 Uncontrolled type 2 diabetes mellitus with hyperglycemia E11.65 Glycemic state: with hyperglycemia Cigarette smoker F17.210 Chronic obstructive pulmonary disease, unspecified COPD type J44.9 COPD type: unspecified COPD Obesity (BMI 30.0-34.9) E66.811 (6) Diabetes mellitus type 2, uncontrolled Glycemic state: with hyperglycemia Qualified Code(s): E11.65 - Type 2 diabetes mellitus with hyperglycemia (8) COPD (chronic obstructive pulmonary disease) COPD type: unspecified COPD Qualified Code(s): J44.9 - Chronic obstructive pulmonary disease, unspecified
[2024-03-22] MEDS: STROKE PATIENT DISCHARGE STA (15:09)
[2024-03-22] MEDS: POTASSIUM CHLORIDE CRTAB 20 MEQ TABCR PO STA (15:15)
[2024-03-22] MEDS: MAGNESIUM SULFATE / D5W 1 GM/100 ML BAG IV SCH (15:15)
[2024-03-22 19:35] VITALS: RESP 18
[2024-03-23 07:34] VITALS: TEMP 97.5; O2SAT 92
[2024-03-23 08:38] LABS: BUN Creatinine Ratio 16.7 (10-20); Calcium 9.1 mg/dl (8.6-10.3); Creatinine Clr Calc Pharmacy 68.8 ml/min; Magnesium 2.2 mg/dl (1.7-2.4); Potassium 3.9 mmol/L (3.5-5.1)
[2024-03-23 09:50] VITALS: BP 139/83; PULSE 68
[2024-03-23] MEDS: STROKE PATIENT DISCHARGE STA (10:20)
--- NOTE | 2024-03-23 13:34 | Discharge Summary ---
Discharge Summary Date of Service March 23, 2024 Principal Dx & Hospital Course #1 = Principal Diagnosis (1) TIA (transient ischemic attack): Plan (1) TIA (transient ischemic attack): (2) H/O: CVA (cerebrovascular accident): (3) History of right-sided carotid endarterectomy: (4) Hypercholesterolemia: (5) Hypertension: (6) Diabetes mellitus type 2, uncontrolled: (7) Cigarette smoker: (8) COPD (chronic obstructive pulmonary disease): (9) Obesity (BMI 30.0-34.9): 73-year-old male with past medical history of CVA, right carotid stenosis status post right CEA in 2019, essential hypertension, hyperlipidemia, type 2 diabetes mellitus, COPD, tobacco use disorder, obesity who presented to the ED with 2-day history of left-sided paresthesias involving the left face, left upper extremity and left lower extremity which have all resolved since admission. #TIA #History of CVA #History of right carotid endarterectomy #Essential hypertension #Hyperlipidemia #Mild aortic stenosis #Nonsustained 14 beat run of V. tach CT head, CTA head and neck were all unremarkable MRI of the brain did not show any acute infarct Discussed with neurologist Dr. Lemus on the phone: He reviewed the history, patient's scans and believes this patient may have had a TIA Dr. Lemus has recommended continuing Plavix 75 mg daily and adding aspirin 81 mg daily for 3 weeks for dual antiplatelet therapy for 3 weeks, continuing statin (LDL 33), follow-up with neurology as outpatient on discharge Patient has seen Dr. Pedraza in the past: Will have patient follow-up with Dr. Pedraza on discharge Triglycerides of 135, cholesterol is 97, LDL is 33, VLDL is 27, HDL is 37 A1c is 7.7 from 03/09/2024 B12 is 1310 TSH is 2.265 Continue Plavix plus statin Continue aspirin 81 mg daily for 3 weeks Continue losartan 50 mg p.o. daily plus hydrochlorothiazide 25 mg p.o. daily 2D echo showed left ventricular systolic function is normal, EF is 55 to 60%, grade 1 diastolic dysfunction noted, mild valvular aortic stenosis noted and there is moderate concentric LVH He had 14 beat run of NSVT 03/22 prior to anticipated discharge. BMP was checked K was 3.9 and mag 1.9. These were replaced. Mag 2.2 today. Monitored on tele an additional night and there were no further events. Made referral for ambulatory awake overnight monitor and he will follow up with Dr. Yusuf. #Type 2 diabetes mellitus #Obesity: BMI 34.6 A1c is 7.7 from 03/09/2024 Discussed GLP-1 agonist and SGLT2 inhibitor. Patient states his primary care provider tried to put him on Rybelsus but patient was reluctant to start it. Patient does not want to start any new medications but is willing to follow-up with endocrinology outpatient placed information for Dr. Callahan from endocrinology on his discharge and ask ed patient to follow-up with them regarding diabetes management. Importance of diabetes management in setting of cardiovascular disease discussed with patient and patient verbalized understanding this. Lifestyle counseling regarding diet, exercise and weight loss provided in great detail #COPD #Tobacco use disorder Smoking cessation counseling provided Patient agreeable to using nicotine replacement patch 2 view chest x-ray reviewed and shows chronic emphysema, no evidence of infiltrates Continue home inhalers Patient not requiring oxygen and is not in COPD exacerbation Patient states he has never seen a distributor publications and has never had pulmonary function test. Discussed following up with pulmonology and given him information for Dr. Staley for patient to make appointment as outpatient as I believe patient would also benefit from not only PFTs but also an outpatient sleep study which can be arranged to pulmonology #Mild leukocytosis: Resolved Patient is afebrile, chest x-ray shows no evidence of infection Bio fire was negative Urinalysis was negative for signs of infection White count has normalized Outpatient follow-up with PCP Notes For Next Care Provider Ordered ambulatory awake overnight monitor because of TIA and episode of 14 beat NSVT this admission Consider SGLT-2 or GLP-1 agonist Medication Changes From Visit ASA 81 mg x 21 days added Discharge Plan Discharge Items Patient Disposition: Home - Self-Care Reason For Visit: PARESTHESIA,DIZZINESS,?CVA Discharge Diagnosis: #TIA #History of CVA #History of right carotid endarterectomy #Essential hypertension #Hyperlipidemia #Type 2 diabetes mellitus #COPD #Tobacco use disorder #Obesity #Mild aortic stenosis #Episode of nonsustained V. tach Activity: As commented below Activity Comment: As tolerated Driving/Machine Use: No driving until cleared by PCP/neurology Non-emergency contact: Primary Care Provider Call non-emergency contact if: you have any medication questions, your symptoms worsen and you have a fever Follow-up/Referrals: Leonid Yusuf MD [Physician] - 03/30/24 10:00 am (appt with ISHA Nolan) Eugenio Pedraza MD [Physician] - 06/17/24 2:00 pm Rolando Callahan MD [Physician] - 04/12/24 1:30 am Aida Staley MD, [facility] [Physician] - 04/19/24 12:45 pm Geovanny Sommers DO [Primary Care Provider] - 04/01/24 1:00 pm Diet: Carb Consistent or DM2, Heart Healthy and Low Sodium (2gm) Addtl Attending Provider Instructions: DISCHARGE INSTRUCTION TO PATIENT/FAMILY: Follow-up with your primary care provider within 1 week regarding: Posthospital discharge, medication review, medication refills and follow-up on all your medical problems, BP monitoring, referral to Pulmonology and Endocrinology if needed through PCP. Please take all your discharge medications, discharge information and discharge instructions to all your doctors appointments. Avoid all NSAIDs including ibuprofen, Motrin, Advil, Aleve, naproxen, meloxicam, Toradol, diclofenac You were diagnosed with a TIA and you have a history of stroke: Continue with Plavix 75 mg daily. In addition to Plavix, neurology has recommended you take aspirin 81 mg p.o. daily for 3 weeks until April 11, 2024. Please follow-up with neurology Dr. Pedraza in 2 to 3 weeks time on discharge No driving until you are cleared by your PCP/neurologist on follow-up Please stop smoking: You already have COPD and history of CVA and carotid artery stenosis. These conditions can get worse with smoking Follow up with Consulting Business Developer (Lung Doctor) Dr. Staley as outpatient in 1 to 2 weeks re: COPD and getting Pulmonary Function Tests and Outpatient Sleep Study Follow up with Chief Operator Synthesis (Ice Cream Dispenser) Dr. Rolando Callahan as outpatient in 1 to 2 weeks re: Diabetes Management Follow-up with the outpatient Cushion Spring Assembler Dr. Leonid Yusuf regarding echo findings showing aortic stenosis and nonsustained V. tach: we have arranged an ambulatory awake overnight monitor - cardiology clinic should be calling you when this is ready to cook pickled meat Labs through PCP in 1 week: CBC, CMP, MG Pending Studies at Discharge: No Stand-Alone Forms: My [employer], Smoking Cessation, Medications to Prevent Stroke Medications and DC Order Prescriptions: New nicotine 7 mg/24 hr Patch 24 Hour 1 patch transdermal QAM Qty: 7 0RF aspirin 81 mg Tablet,Delayed Release (Dr/Ec) 81 mg PO QAM Qty: 20 0RF Rx Instructions: for total of 21 days albuterol sulfate [Ventolin HFA] 90 mcg/actuation Hfa Aerosol Inhaler 2 puff inhalation Q6H PRN (Reason: shortness of breath or wheezing) Qty: 8.5 0RF magnesium oxide 400 mg (241.3 mg magnesium) Tablet 400 mg PO BID Qty: 14 0RF Rx Instructions: Available [id number] Continued budesonide-formoterol [Symbicort] 80-4.5 mcg/actuation HFA aerosol inhaler 1 inh inhalation BID Qty: 10.2 5RF Hold Instructions: Failed, attempting to get auth for Advair. hydrochlorothiazide 25 mg tablet 25 mg PO DAILY Qty: 90 1RF atorvastatin 40 mg tablet 40 mg PO DAILY Qty: 90 3RF (DME) OneTouch Ultra Test Strip See Rx Instructions .Route Qty: 100 8RF Rx Instructions: check blood sugars once a day cyanocobalamin (vitamin B-12) 1,000 mcg capsule 1,000 mcg PO DAILY Qty: 90 3RF pyridoxine (vitamin B6) 50 mg tablet 50 mg PO DAILY Qty: 90 3RF pioglitazone 15 mg tablet 15 mg PO DAILY Qty: 90 3RF potassium chloride 10 mEq tablet extended release 10 meq PO DAILY Qty: 90 3RF metformin 500 mg tablet 1,000 mg PO BID Qty: 360 3RF losartan 50 mg tablet 50 mg PO DAILY Qty: 90 3RF folic acid 1 mg tablet 2.5 mg PO QAM 90 Days Qty: 225 3RF clopidogrel 75 mg tablet 75 mg PO QAM Qty: 90 3RF Discontinued fluticasone propion-salmeterol 100-50 mcg/dose blister with device 1 inh inhalation BID Qty: 180 3RF Discharge Orders: Discharge Order (Routine); Ordered 03/23/24 Ordered By: Blanquita Kothari/Other Patient Handouts: COPD Quit Smoking, Understanding High Blood Pressure, TIA Dc, Treatment of Diabetes Admission Data Admit Date/Time: 03/22/24 16:38 Attending Provider: Blanquita Downs Admit Provider: Leeanna Doyle Primary Care Provider: Geovanny Sommers Other Providers: Leeanna Doyle Other Interventions: Discharge Summary Assessment (RN) Last Done: 03/23/24 09:49 Hospital Stay Data Consultations 03/21/24 04:27 ED Decision to Admit Stat Diagnostic Imagining Performed 03/21/24 03:57 CT angio head w con Stat CT angio neck with con Stat CT head/brain wo con Stat 03/21/24 08:25 MR brain wo/w con Routine Pending Results Patient Have Any Pending Studies at Discharge: No Discharge Instructions Given to Patient (Per Discharging Provider) DISCHARGE INSTRUCTION TO PATIENT/FAMILY: Follow-up with your primary care provider within 1 week regarding: Posthospital discharge, medication review, medication refills and follow-up on all your medical problems, BP monitoring, referral to Pulmonology and Endocrinology if needed through PCP. Please take all your discharge medications, discharge information and discharge instructions to all your doctors appointments. Avoid all NSAIDs including ibuprofen, Motrin, Advil, Aleve, naproxen, meloxicam, Toradol, diclofenac You were diagnosed with a TIA and you have a history of stroke: Continue with Plavix 75 mg daily. In addition to Plavix, neurology has recommended you take aspirin 81 mg p.o. daily for 3 weeks until April 11, 2024. Please follow-up with neurology Dr. Pedraza in 2 to 3 weeks time on discharge No driving until you are cleared by your PCP/neurologist on follow-up Please stop smoking: You already have COPD and history of CVA and carotid artery stenosis. These conditions can get worse with smoking Follow up with Consulting Business Developer (Lung Doctor) Dr. Staley as outpatient in 1 to 2 weeks re: COPD and getting Pulmonary Function Tests and Outpatient Sleep Study Follow up with Chief Operator Synthesis (Ice Cream Dispenser) Dr. Rolando Callahan as outpatient in 1 to 2 weeks re: Diabetes Management Follow-up with the outpatient Cushion Spring Assembler Dr. Leonid Yusuf regarding echo findings showing aortic stenosis and nonsustained V. tach: we have arranged an ambulatory awake overnight monitor - cardiology clinic should be calling you when this is ready to cook pickled meat Labs through PCP in 1 week: CBC, CMP, MG Total Time Total Time Spent Total Time Spent (In Minutes): <30 Coding Level of Care Code 63179 IN/OBS DISCH 30 MIN/LESS Diagnoses TIA (transient ischemic attack) G45.9
== END 2024-03-23 11:16 | disposition home or self-care (01) | DRG 69 ==
LOC: SUATTDRO → ED 04:04 → EDINP 04:04 → SUATTDRO 05:31 → 2W 12:38 → SUATTDRO 03-22 16:38